=== PATIENT | male | born 2005 | race Caucasian/White ===

== ENCOUNTER 2025-03-11 00:25 | Inpatient (IN) | payer OTHER ==
[~2025-03-11] VITALS: Ht 175.3 cm; Wt 74.0 kg
[2025-03-11] VITALS (73 sets, daily range): BP systolic 68–232; BP diastolic 26–136; PULSE 84–185; RESP 16–45; TEMP 97.2–101.1; O2SAT 87–100
--- NOTE | 2025-03-11 00:35 | ED.PDOC ---
SOB-HPI HPI Comments HPI: Poor Historian. Court received a phone call earlier [place] [place] DR. LUTHER informed me that the patient needs higher level of care. Said it is a 19-year-old male who presented to their facility with low oxygenation and shortness of breath for one day. Initially patient was tachycardic 130 requiring supplemental oxygen 2 L non-rebreather satting 93% with a stable blood pressure. Chest x-ray and CTA angiogram were obtained which shows non cardiogenic pulmonary edema with possible ARDS. At the outside facility patient received albuterol azithromycin cefepime ipratropium lactated ringer a total of 1 L IV, methylprednisolone 125, Zofran 4 mg IV, 500 cc of normal saline, Rocephin 2 g IV patient was placed on a semi make shift BiPAP like device since they do not has a BiPAP machine at their facility. Patient was given ketamine to help him tolerate the BiPAP at the outside facility. He received a total of 90 mg of ketamine in 30 mg boluses until he arrived here in the ED. CTA angiogram shows no PE however possible noncardiogenic pulmonary edema, pneumonia, and/or ARDS Past Medical History: Denies any Past Surgical History: Denies any Tobacco abuse REVIEW OF SYSTEMS: CONSTITUTIONAL: Denies acute: fever, diaphoresis, chills, HEAD: Denies acute: headache, photophobia Eyes: Denies acute: Double vision, vision loss, eye pain, eye discharge. EARS: Denies acute: tinnitus, hearing loss, ear discharge, ear pain, THROAT: Denies acute: sore throat, swelling, difficulty swallowing , pain with swallowing, change in voice. NECK: Denies acute: neck pain, neck swelling, stiff neck. HEART: Denies acute : chest pain, palpitations, LUNGS: Denies acute: wheezing, cough, hemoptysis ABDOMEN: Denies acute: abdominal pain, Nausea, Vomiting, diarrhea, melena , hematemesis, hematochezia SKIN: Denies acute: rash, redness, lesions, itchiness. EXTREMITIES: Denies acute: calf pain, numbness, tingling, weakness, denies pain in extremity. Denies acute: Low back pain. Neuro: Denies acute: focal neurological deficit, motor or sensory focal neurological deficit, tremors, seizure like activity, confusion, dizziness, change in mental status, loss of bowel or bladder function, cauda equina like symptoms. : Denies acute: dysuria, hematuria, flank pain, increase in urinary frequency. PSYCH: Denies acute: hallucination, suicidal ideation, homicidal ideation. PHYSICAL EXAM: General: ---[id number]-----acute distress, awake and alert. Head: normocephalic, atraumatic. Neck: supple, trachea is midline, no swelling. Throat: Normal phonation. Eyes:, no erythema, no purulent discharge, no proptosis, no icterus. Heart: regular tachycardic, no significant murmur appreciated. Lungs: Mild apparent respiratory distress, No wheezing, bilateral rhonchi, no crackles. No stridors Abdomen: non tender to palpation, non distended, soft, no guarding, no rebound, + bowel sounds. Neuro: Awake, Alert, oriented to name, self, situation, follows commands. However he is under the influence of ketamine. GCS=15. Speech is normal. Skin: no petechia, no purpura, no cyanosis, non-pale, not jaundice. Lower extremities: --no - Pitting edema no deformity, no focal swelling, no calf TTP. Makes eye contact. moves all four extremities. ED COURSE: DISCLAIMER: This medical document was created using an electronic medical record system with voice recognition software and computerized dictation system. Although this document has been carefully reviewed, there might still be some phonetic and typographical errors. Occasional wrong-word or "sound-alike" substitutions may have occurred due to the inherent limitations of voice recognition software. These areas are purely typographical due to imperfections of the software programs and do not reflect any compromise in the patient's medical care. Please read the chart carefully and recognize, using context, where these substitutions have occurred. Chief Complaint: Shortness of Breath Time Seen by MD: 00:31 Reviewed notes: Allergies Information Source: Patient, Emergency Med Personnel Mode of Arrival: EMS Past Medical History PAST MEDICAL HISTORY: Denies Surgical History: Denies all surgeries Family History Family History: Reviewed,noncontributory to illness Social History Smoker: Cigarettes Alcohol: Denies ETOH Use Drugs: Denies Drug Use Lives In: Home EKG EKG : Pulse Rate (adult): 122 Cardiac Rhythm: ST Was a procedure done? Was a procedure done?: No Differential Dx Differential Diagnosis: Pneumonia, Respiratory Distress, URI (Pulmonary edema), Other (DDx include ACS, unstable angina, anxiety, PE, pneumothroax, neoplasm, cardiac ischemia, COPD, asthma, CHF, pleural effusion, tobacco abuse, pneumonia, hypoxia, hypercapnia, anemia., infection/sepsis., pulmonary edema. Asthma, Cardiac tamponade, infection.) X-Ray, Labs, Meds, VS Vital Signs Date Time Temp Pulse Resp B/P (MAP) Pulse Ox O2 Delivery O2 Flow Rate FiO2 03/11/25 01:01 35 94 Bi-Pap+ 50 50 03/11/25 01:01 122 03/11/25 00:55 Bi-Pap+ 50 50 03/11/25 00:55 99.8 123 31 160/93 (115) 92 99.8 03/11/25 00:52 122 03/11/25 00:35 128 160/93 Facial BiPAP Mask 50 03/11/25 00:29 101.3 134 20 140/91 92 101.3 Lab Test 03/11/25 00:43 03/11/25 00:42 Range/Units Blood Gas Specimen Type Arterial Blood Gas Sample Site Right radial Blood Gas Patient Temperature 37.0 Arterial Blood Date Drawn [id number] Arterial Blood pH 7.338 L 7.350-7.450 Arterial Blood Partial Pressure CO2 43.1 35.0-48.0 mmHg Arterial Blood Partial Pressure O2 74.1 L 83.0-108.0 mmHg Arterial Blood HCO3 22.6 21.0-28.0 mmol/L Arterial Blood Oxygen Saturation 93.8 L 94.0-98.0 % Arterial Blood Base Excess -3.2 L -2.0-3.0 mmol/L Arterial Blood Oxyhemoglobin 92.8 L 94.0-98.0 % Arterial Blood Carboxyhemoglobin 0.3 L 0.5-1.5 % Arterial Blood Methemoglobin 0.8 0.0-1.5 % Javier Test Modified Blood Gas Total Hemoglobin 19.70 *H 13.5-17.5 g/dL Blood Gas Set Respiration Rate 12.0 Blood Gas Modality Mask - bipap Blood Gas Spontaneous Rate 35 FiO2 % 50.0 Blood Gas Spontaneous Tidal Volume 554 Blood Gas EPAP 5 Blood Gas IPAP 12 Bl Gas Inspiratory/Expiratory Ratio 1:3 Blood Gas Critical Value Read Back Yes Blood Gas Notified Whom wil Segal Blood Gas Notified Time [id number] Blood Gas Notified By Rt, don delarosa White Blood Count 32.4 *H 4.4-10.8 10^3/uL Red Blood Count 6.49 H 4.5-5.90 10^6/uL Hemoglobin 18.2 H 13.5-17.5 g/dL Hematocrit 53.2 H 41.0-53.0 % Mean Corpuscular Volume 82.1 80.0-100.0 fL Mean Corpuscular Hemoglobin 28.0 28.0-32.0 pg Mean Corpuscular Hemoglobin Concent 34.1 32.0-36.0 g/dL Red Cell Distribution Width 13.5 11.8-14.3 % Platelet Count 430 140-450 10^3/uL Mean Platelet Volume 6.9 6.9-10.8 fL Neutrophils (%) (Auto) 37.0-80.0 % Lymphocytes (%) (Auto) 10.0-50.0 % Monocytes (%) (Auto) 0.0-12.0 % Basophils (%) (Auto) 0.0-2.0 % Neutrophils # (Auto) 1.6-8.6 10 ^3/uL Lymphocytes # (Auto) 0.4-5.4 10 ^3/uL Monocytes # (Auto) 0-1.3 10 ^3/uL Differential Total Cells Counted 100.0 100 Neutrophils % (Manual) 81 H 37.0-80.0 Band Neutrophils % (Manual) 4 Lymphocytes % (Manual) 5 L 10.0-50.0 Monocytes % (Manual) 7 0-12 Eosinophils % (Manual) 1 0-7 Basophils % (Manual) 0 0.0-2.0 Metamyelocytes % (manual) 0 Myelocytes % (Manual) 0 Promyelocytes % (Manual) 0 Blast Cells % (Manual) 0 Reactive Lymphocytes 2 Platelet Estimate [place] Large Platelets Few Sodium Level 135 L 136-145 mmol/L Potassium Level 4.1 3.5-5.1 mmol/L Chloride Level 101 98-107 mmol/L Carbon Dioxide Level 25 20-31 mmol/L Anion Gap 9 5-15 Blood Urea Nitrogen 10 9-23 mg/dL Creatinine 0.89 0.700-1.30 mg/dL Glomerular Filtration Rate Calc 125 >90 mL/min BUN/Creatinine Ratio 11.2 10.0-20.0 Serum Glucose 141 H 74-106 mg/dL Hemoglobin A1c 5.0 <5.7 % A1C Lactic Acid Level 1.4 0.4-2.0 mmol/L Calcium Level 8.6 L 8.7-10.4 mg/dL Total Bilirubin 0.9 0.2-1.0 mg/dL Aspartate Amino Transferase (AST) 13 13-40 U/L Alanine Aminotransferase (ALT) < 9 7-40 U/L Alkaline Phosphatase 65 46-116 U/L Troponin I High Sensitivity 63 *H </=54 ng/L B-Type Natriuretic Peptide 51.93 0-100 pg/mL Total Protein 6.3 5.7-8.2 g/dL Albumin 4.0 3.2-4.8 g/dL Current Medications Medications (Trade) Dose Ordered Sig/Perez Route Start Time Stop Time Status Last Admin Dexamethasone Sodium Phosphate (Decadron Injection) 20 mg ONCE ONCE IV 03/11/25 00:45 03/11/25 00:46 DC 03/11/25 00:47 Albuterol (Ventolin Medneb) 20 mg ONCE ONCE NEB 03/11/25 01:00 03/11/25 01:01 DC 03/11/25 01:05 Ipratropium Hanson (Atrovent Medneb) 1 mg ONCE ONCE NEB 03/11/25 01:00 03/11/25 01:01 DC 03/11/25 01:06 [place] [id number] Ph: [phone] DIAGNOSTIC IMAGING Diagnostic Imaging Report : [id number] Signed PATIENT: TUYET FLOR ACCT: [id number] UNIT: [id number] : 2005 LOC: OVERFLOW ROOM / BED: [address] [place] [address] AGE / SEX: 19 / M ADM STATUS: ADM IN SERVICE ORDERING PHYSICIAN: ROLANDO STARKS DO PROCEDURE(s): CXRP - CHEST PORTABLE REASON: sob ORDER NUMBER(s): [id number], ACCESSION NUMBER(s): [id number] CHEST RADIOGRAPH Indication: sob Technique: Single frontal view of the chest was obtained COMPARISON: None FINDINGS: Lines and Tubes: None Lungs: Diffuse patchy bilateral pulmonary airspace disease, most notably within the right upper lung zone and bibasilar regions. Increased prominence of the interstitium and pulmonary vasculature. Pleura: No effusion. No pneumothorax. Cardiomediastinal contours: Unremarkable Bones: Unremarkable IMPRESSION: 1. Diffuse patchy bilateral pulmonary airspace disease, most notably within the right upper lung zone and bibasilar regions. 2. Increased prominence of the interstitium and pulmonary vasculature. ATED BY: JOSE ORR MD DICTATED DATE/TIME: 03/11/25205 SIGNED BY: JOSE ORR MD SIGNED DATE/TIME: 03/11/25205 CC: Time of 1ST Reevaluation: 01:00 Reevaluation 1ST: Unchanged Patient Education/Counseling: Diagnosis, Treatment Family Education/Counseling: No Family Present Comments MDM: patient presented with the above HPI.---dyspnea---workup was initiated. patient was found with the above mentioned diagnosis. Patient was transferred from outside facility. Patient has already received blood cultures antibiotics DuoNeb treatment steroids fluids prior to arrival. The facility over they did not have a BiPAP and that is not have the capacity to order BNP. Per the transfer provider, troponin was normal. Patient was found with elevated troponin here. Patient was placed on a BiPAP immediately upon arrival. CTA angiogram of the chest ruled out PE but shows some nonspecific findings of possible ARDS versus pulmonary edema versus pneumonia. Patient has leukocytosis with possible fever and elevated lactic acid which is more consistent with possible sepsis picture. the following medications were ordered: please refer to order lists of meds and tests obtained by myself Dr. Straks. Patient ED course and VS have been stabilized. Patient has been reassessed in the ED and remained in a stable condition. Escalation of care considered: Consideration of escalation to observation or admission Given the chest x-ray finding and ambiguity of the CTA angiogram report, I gave the patient a Lasix trial given his pulmonary vascular findings. Patient was ADMITTED to the medicine team for further evaluation and treatment of their presentation. All the reports of any imaging studies that were ordered by myself were reviewed by myself. SEPSIS Sepsis Screen Physician Orders Deputy Court Clerk (03/11/25 ) Chest Portable (03/11/25 00:31) Electrocardigram (03/11/25 00:31) BIPAP (03/11/25 00:51) Abg W/ Co-Ox (03/11/25 00:51) Abg W/ Co-Ox (03/11/25 00:56) Vital Signs Date Time Temp Pulse Resp B/P (MAP) Pulse Ox O2 Delivery O2 Flow Rate FiO2 03/11/25 01:01 35 94 Bi-Pap+ 50 50 03/11/25 01:01 122 03/11/25 00:55 Bi-Pap+ 50 50 03/11/25 00:55 99.8 123 31 160/93 (115) 92 99.8 03/11/25 00:52 122 03/11/25 00:35 128 160/93 Facial BiPAP Mask 50 03/11/25 00:29 101.3 134 20 140/91 92 101.3 Laboratory Tests Test 03/11/25 00:42 Lactic Acid Level 1.4 mmol/L (0.4-2.0) White Blood Count 32.4 10^3/uL (4.4-10.8) *H Medications Medications Dose Ordered Sig/Perez Route Start Time Stop Time Status Last Admin Dose Admin Albuterol 20 mg ONCE ONCE NEB 03/11/25 01:00 03/11/25 01:01 DC 03/11/25 01:05 Dexamethasone Sodium Phosphate 20 mg ONCE ONCE IV 03/11/25 00:45 03/11/25 00:46 DC 03/11/25 00:47 Ipratropium Hanson 1 mg ONCE ONCE NEB 03/11/25 01:00 03/11/25 01:01 DC 03/11/25 01:06 Departure 1 Departure Time of Disposition: 01:00 Impression: Primary Impression: Acute respiratory distress Additional Impressions: Sepsis Pulmonary edema ARDS (adult respiratory distress syndrome) Increased lactic acid level Hypercapnia Leukocytosis D-dimer, elevated History of tobacco abuse Elevated troponin Disposition: ADMITTED INPATIENT Admit to: [facility] Condition: Guarded Discharged With: Self Critical Care Note Critical Care Time?: Yes (1 hr-critical care time only) Stability Stability form required: No Heart Score Heart Score: Heart Score Response (Comments) Value History Slightly Suspicious 0 EKG Normal 0 Age <45 0 Risk Factors 1 or 2 risk factors 1 Troponin Normal limit 0 Total 1 I personally scribed for ROLANDO STARKS DO ([email or web address]) on 03/11/25 at 00:35. Electronically submitted by Aj Alfred ([facility]). I personally scribed for ROLANDO STARKS DO ([email or web address]) on 03/11/25 at 01:01. Electronically submitted by Aj Alfred ([email or web address]). I personally scribed for ROLANDO STARKS DO ([email or web address]) on 03/11/25 at 03:42. Elec tronically submitted by Aj Alfred ([facility] ROLANDO STARKS DO Mar 11, 2025 00:35
[2025-03-11 00:56] LABS: Hematocrit 53.2 % (41.0-53.0); Hemoglobin 18.2 g/dL (13.5-17.5); Mean Corpuscular Hemoglobin 28.0 pg (28.0-32.0); Mean Corpuscular Volume 82.1 fL (80.0-100.0)
[2025-03-11 01:05] LABS: Base Excess -3.2 mmol/L (-2.0-3.0)
[2025-03-11] MEDS: ALBUTEROL SULF 2.5 MG/0.5ML(0.5%) NEB SOLN NEB ONE (01:05)
[2025-03-11] MEDS: ALBUTEROL SULF 2.5 MG/0.5ML(0.5%) NEB SOLN ONE (01:06)
[2025-03-11] MEDS: IPRATROPIUM BROM 0.5 MG/2.5ML INH SOL ONE (01:06)
[2025-03-11] MEDS: IPRATROPIUM BROM 0.5 MG/2.5ML INH SOL NEB ONE (01:06)
[2025-03-11 01:10] LABS: Total Cells Counted 100.0 (100)
[2025-03-11] MEDS ORDERED: LABETALOL HCL 20 MG/4 ML VL IV PRN (01:15)
[2025-03-11] MEDS ORDERED: MORPHINE SULFATE INJ 2 MG/ml SYRG IV PRN (01:15)
[2025-03-11] MEDS ORDERED: ONDANSETRON HCL 4 MG/2 ML VIAL IV PRN (01:15)
[2025-03-11] MEDS ORDERED: DOCUSATE SOD 100 MG CAP PO PRN (01:15)
[2025-03-11] MEDS ORDERED: HYDROcodone-ACET 5/325MG TAB PO PRN (01:15)
[2025-03-11] MEDS ORDERED: NITROGLYCERIN 0.4 MG SL TAB SL PRN (01:15)
[2025-03-11 01:16] LABS: Albumin 4.0 g/dL (3.2-4.8); Alkaline Phosphatase 65 U/L (46-116); Anion Gap 9 (5-15); BUN/Creatinine Ratio 11.2 (10.0-20.0); Bilirubin, Total 0.9 mg/dL (0.2-1.0); Blood Urea Nitrogen 10 mg/dL (9-23); Carbon Dioxide 25 mmol/L (20-31); Chloride 101 mmol/L (98-107); Potassium 4.1 mmol/L (3.5-5.1); Total Protein 6.3 g/dL (5.7-8.2)
[2025-03-11 01:18] LABS: Alanine Aminotransferase < 9 U/L (7-40); Calcium 8.6 mg/dL (8.7-10.4); Glucose 141 mg/dL (74-106); Sodium 135 mmol/L (136-145)
--- NOTE | 2025-03-11 01:26 | DVHHP2 ---
History of Present Illness Reason for Visit: Acute respiratory distress History of Present Illness The patient is a 19-year-old male who denies past medical history transferred from [facility] to [facility] ED for evaluation of acute respiratory distress. DR. LUTHER informed ED doctor that th e patient needs higher level of care. Patient was seen and evaluated at the facility and chest x-ray, CTA angiogram were obtained which showed no PE, but possible non cardiogenic pulmonary edema, pneumonia, and/or ARDS. At the facility, patient received breathing treatment albuterol, ipratropium, azithromycin, cefepime, lactated ringer a total of 1 L IV, methylprednisolone 125, Zofran 4 mg IV, 500 cc of normal saline, and Rocephin 2 g IV. Patient was placed on a semi make shift BiPAP like device since they do not has a BiPAP machine at their facility. Patient was given ketamine to help him tolerate the BiPAP at the facility. He received a total of 90 mg of ketamine in 30 mg boluses until he arrived here in the ED. Patient was seen and evaluated in the ED, l aboratory data shows WBC 32.4, hemoglobin 18.2, hematocrit 53.2, platelets 430, sodium 135, potassium 4.1, BUN 10, creatinine 0.89, glucose 141, calcium 8.6, BNP 51.93, troponin 63, blood pressure 160/93, heart rate 134 trending down to 122, temperature 101.3 F trending down to 99.8 F, O2 saturation 92% on oxygen. Please see medication orders section in the computer. On my assessment, patient denied chest pain, no dizziness, headache, diaphoresis, currently on oxygen, no diarrhea, nausea, vomiting, no chills. Patient was admitted for further evaluation and medical management. Past Medical History Denies past medical history Past Surgical History Denies all surgeries Family History Reviewed, noncontributory to the management of this case. Past Social History The patient lives at home, denies smoking, alcohol or illicit drugs abuse. Review of Systems Constitutional: Yes: Weakness; No: Fever, Chills, Sweats, Malaise, Other Eyes: No: Pain, Vision change, Conjunctivae inflammation, Eyelid inflammation, Other, Redness ENT: No: Ear pain, Ear discharge, Nose pain, Nose discharge, Nose congestion, Mouth pain, Mouth swelling, Throat pain, Throat swelling, Other Respiratory: Shortness of breath, SOB with excertion, Other (SOB at rest); No: Cough, Dry, Wheezing, Hemoptysis, Pleuritic Pain, Sputum, Wheezing Cardiovascular: No: Chest Pain, Palpitations, Orthopnea, Paroxysmal Noc. Dyspnea, Edema, Lt Headedness, Other Gastrointestinal: No: Nausea, Vomiting, Abdominal Pain, Diarrhea, Constipation, Melena, Hematochezia, Other Genitourinary: No Dysuria, No Frequency, No Incontinence, No Hematuria, No Retention, No Other Skin: No: Rash, Lesions, Jaundice, Bruising, Other Neurological: No: Weakness, Numbness, Incoordination, Change in speech, Confusion, Seizures, Other Exam Vital Signs Vital Signs Date Time Temp Pulse Resp B/P (MAP) Pulse Ox O2 Delivery O2 Flow Rate FiO2 03/11/25 01:01 122 03/11/25 00:55 Bi-Pap+ 50 50 03/11/25 00:55 99.8 31 160/93 (115) 92 99.8 General Appearance: Alert, Oriented X3, Cooperative, No acute distress HEENT: Atraumatic, PERRLA, EOMI, Mucous membr. moist/pink Respiratory: Normal air movement, Other (On BiPAP) Cardiovascular: Normal S1, Normal S2, No murmurs, Other (Tachycardia) Abdominal: Normal bowel sounds, Soft, No tenderness, No hepatospenomegaly, No masses Extremities: No clubbing, No cyanosis, No edema, Normal pulses, No tenderness/swelling Skin: No rashes, No breakdown, No significant lesion Neuro: Normal speech, Normal tone, Sensation intact, Cranial nerves 3-12 NL, Reflexes 2+, Other (Generalized weakness) Psych/Mental Status: Mental status NL, Mood NL Labs/Xrays Labs Test 03/11/25 01:18 03/11/25 00:43 03/11/25 00:42 Range/Units Blood Gas Specimen Type Arterial Blood Gas Sample Site Right radial Blood Gas Patient Temperature 37.0 Arterial Blood Date Drawn [id number] Arterial Blood pH 7.338 L 7.350-7.450 Arterial Blood Partial Pressure CO2 43.1 35.0-48.0 mmHg Arterial Blood Partial Pressure O2 74.1 L 83.0-108.0 mmHg Arterial Blood HCO3 22.6 21.0-28.0 mmol/L Arterial Blood Oxygen Saturation 93.8 L 94.0-98.0 % Arterial Blood Base Excess -3.2 L -2.0-3.0 mmol/L Arterial Blood Oxyhemoglobin 92.8 L 94.0-98.0 % Arterial Blood Carboxyhemoglobin 0.3 L 0.5-1.5 % Arterial Blood Methemoglobin 0.8 0.0-1.5 % Javier Test Modified Blood Gas Total Hemoglobin 19.70 *H 13.5-17.5 g/dL Blood Gas Set Respiration Rate 12.0 Blood Gas Modality Mask - bipap Blood Gas Spontaneous Rate 35 FiO2 % 50.0 Blood Gas Spontaneous Tidal Volume 554 Blood Gas EPAP 5 Blood Gas IPAP 12 Bl Gas Inspiratory/Expiratory Ratio 1:3 Blood Gas Critical Value Read Back Yes Blood Gas Notified Whom wil Segal Blood Gas Notified Time [id number] Blood Gas Notified By don Cantu White Blood Count 32.4 *H 4.4-10.8 10^3/uL Red Blood Count 6.49 H 4.5-5.90 10^6/uL Hemoglobin 18.2 H 13.5-17.5 g/dL Hematocrit 53.2 H 41.0-53.0 % Mean Corpuscular Volume 82.1 80.0-100.0 fL Mean Corpuscular Hemoglobin 28.0 28.0-32.0 pg Mean Corpuscular Hemoglobin Concent 34.1 32.0-36.0 g/dL Red Cell Distribution Width 13.5 11.8-14.3 % Platelet Count 430 140-450 10^3/uL Mean Platelet Volume 6.9 6.9-10.8 fL Neutrophils (%) (Auto) 37.0-80.0 % Lymphocytes (%) (Auto) 10.0-50.0 % Monocytes (%) (Auto) 0.0-12.0 % Basophils (%) (Auto) 0.0-2.0 % Neutrophils # (Auto) 1.6-8.6 10 ^3/uL Lymphocytes # (Auto) 0.4-5.4 10 ^3/uL Monocytes # (Auto) 0-1.3 10 ^3/uL Differential Total Cells Counted 100.0 100 Neutrophils % (Manual) 81 H 37.0-80.0 Band Neutrophils % (Manual) 4 Lymphocytes % (Manual) 5 L 10.0-50.0 Monocytes % (Manual) 7 0-12 Eosinophils % (Manual) 1 0-7 Basophils % (Manual) 0 0.0-2.0 Metamyelocytes % (manual) 0 Myelocytes % (Manual) 0 Promyelocytes % (Manual) 0 Blast Cells % (Manual) 0 Reactive Lymphocytes 2 Platelet Estimate [place] Large Platelets Few Sodium Level 135 L 136-145 mmol/L Potassium Level 4.1 3.5-5.1 mmol/L Chloride Level 101 98-107 mmol/L Carbon Dioxide Level 25 20-31 mmol/L Anion Gap 9 5-15 Blood Urea Nitrogen 10 9-23 mg/dL Creatinine 0.89 0.700-1.30 mg/dL Glomerular Filtration Rate Calc 125 >90 mL/min BUN/Creatinine Ratio 11.2 10.0-20.0 Serum Glucose 141 H 74-106 mg/dL Lactic Acid Level 1.4 0.4-2.0 mmol/L Calcium Level 8.6 L 8.7-10.4 mg/dL Total Bilirubin 0.9 0.2-1.0 mg/dL Aspartate Amino Transferase (AST) 13 13-40 U/L Alanine Aminotransferase (ALT) < 9 7-40 U/L Alkaline Phosphatase 65 46-116 U/L B-Type Natriuretic Peptide 51.93 0-100 pg/mL Total Protein 6.3 5.7-8.2 g/dL Albumin 4.0 3.2-4.8 g/dL SEPSIS Sepsis Screen Date sepsis recognized/suspect: Mar 11, 2025 Time Sepsis recognized/suspect: 54 Recent Procedure: No On Antibiotic Therapy: No Respiratory Rate >20: Yes Heart Rate >90: Yes Temp<36 C (96.8 F) or >38.3 C: Yes SBP <90 or MAP <65 mmHG: No New Acute Mental Status Change: No Is the patient on CPAP, BIPAP,: Yes Physician Orders Chemist Food (03/11/25 ) Chest Portable (03/11/25 00:31) Electrocardigram (03/11/25 00:31) Troponin-I Hs (03/11/25 01:31) Troponin-I Hs (03/11/25 03:31) BIPAP (03/11/25 00:51) Abg W/ Co-Ox (03/11/25 00:51) Abg W/ Co-Ox (03/11/25 00:56) Comprehensive Metabolic Panel (03/11/25 04:00) Complete Blood Count (03/11/25 04:00) Levalbuterol Hcl (Xopenex Medneb) (03/11/25 06:00) Methylprednisolone Sod Succ (Solu Medrol (03/11/25 06:00) Famotidine Injection (Pepcid Injection) (03/11/25 10:00) Zosyn Extended Infusion (03/11/25 06:00) Azithromycin 500mg/ 250ml (Zithromax 50 (03/12/25 10:00) *Consult (03/11/25 01:14) * Hematology/Oncology Consult (03/11/25 01:14) Clonidine Hcl Tablet (Catapres Tablet) (03/11/25 01:15) Labetalol Hcl (Labetalol Hcl) (03/11/25 01:15) Metoprolol Tartrate Tablet (Lopressor Ta (03/11/25 10:00) Admit (03/11/25 01:14) Allergies (03/11/25 01:14) Code Status (03/11/25 01:14) Sodium Chloride Lock (Saline Lock Ns) (03/11/25 06:00) Oxygen Per Hour (03/11/25 01:14) Hydrocodone-Acet 5/325mg Tab ([place] 5/32 (03/11/25 01:15) Ondansetron Hcl (Zofran) (03/11/25 01:15) Docusate Sodium Capsule (Colace Capsule) (03/11/25 01:15) Enoxaparin Sodium (Lovenox) (03/11/25 10:00) Fall Risk Precautions In Place QSHIFT (03/11/25 01:14) Complete Blood Count (03/12/25 04:00) Comprehensive Metabolic Panel (03/12/25 04:00) Cardiac Diet-2gna,Lofat,Lochol (03/11/25 Breakfast) Condition: Serious (03/11/25 01:14) Acetaminophen Tablet (Tylenol Tablet) (03/11/25 01:15) Maintain Bed Rest (03/11/25 01:14) Sequential Compression Device (03/11/25 ) Nitroglycerin Sublingual (Ntrostat Subli (03/11/25 01:15) Morphine Sulfate Injection (03/11/25 01:15) Stat Ekg For Chest Pain (03/11/25 01:14) Notify Of Changes From Base (03/11/25 01:14) Cabbage Salter For 24 Hours (03/11/25 01:14) Emergency Dysrhythmia Protocol (03/11/25 01:14) Rhythm Strips Once Every Shift (03/11/25 01:14) Oxygen By Nasal Cannula (03/11/25 01:14) Vital Signs Date Time Temp Pulse Resp B/P (MAP) Pulse Ox O2 Delivery O2 Flow Rate FiO2 03/11/25 01:01 122 03/11/25 00:55 Bi-Pap+ 50 50 03/11/25 00:55 99.8 123 31 160/93 (115) 92 99.8 03/11/25 00:52 122 03/11/25 00:29 101.3 134 20 140/91 92 101.3 Laboratory Tests Test 03/11/25 00:42 Lactic Acid Level 1.4 mmol/L (0.4-2.0) White Blood Count 32.4 10^3/uL (4.4-10.8) *H Medications Medications Dose Ordered Sig/Perez Route Start Time Stop Time Status Last Admin Dose Admin Albuterol 20 mg ONCE ONCE NEB 03/11/25 01:00 03/11/25 01:01 DC 03/11/25 01:05 20 MG Dexamethasone Sodium Phosphate 20 mg ONCE ONCE IV 03/11/25 00:45 03/11/25 00:46 DC 03/11/25 00:47 20 MG Ipratropium [place] 1 mg ONCE ONCE NEB 03/11/25 01:00 03/11/25 01:01 DC 03/11/25 01:06 1 MG Assessment/Plan Assessment/Plan Acute respiratory distress Hypercapnia Hyponatremia Polycythemia vera Elevated D-dimer Sepsis, unspecified organism Pulmonary edema ARDS (adult respiratory distress syndrome) Plan 1. Admit to step-down unit 2. Breathing treatment 3. Pain control management 4. IV antibiotic management 5. Management of fluids and electrolytes 6. Consultation for pulmonology 7. Diagnostic test chest x-ray 8. DVT prophylaxis-on Lovenox 9. Repeat labs CBC, CMP in a.m. 10. Continue with current medical management 11. Treatment plan discussed with patient and RN. Patient verbalized stacey wood. Plan discussed with: Patient, Other (RN) My Orders Orders - MONET DAMON DNP Procedure Category Date Status Time Comprehensive LAB 03/11/25 Verified Metabolic Panel 04:00 Complete Blood Count LAB 03/11/25 Verified 04:00 Levalbuterol Hcl PHA 03/11/25 Verified (Xopenex Medneb) 06:00 Methylprednisolone PHA 03/11/25 Verified Sod Succ (Solu Medrol 06:00 Famotidine Injection PHA 03/11/25 Verified (Pepcid Injection) 10:00 Zosyn Extended PHA 03/11/25 Verified Infusion 06:00 Azithromycin 500mg/ PHA 03/12/25 Verified 250ml (Zithromax 50 10:00 *Consult CONS 03/11/25 Verified 01:14 * Hematology/Oncology CONS 03/11/25 Verified Consult 01:14 Clonidine Hcl Tablet PHA 03/11/25 Verified (Catapres Tablet) 01:15 Labetalol Hcl PHA 03/11/25 Verified (Labetalol Hcl) 01:15 Metoprolol Tartrate PHA 03/11/25 Verified Tablet (Lopressor Ta 10:00 Admit ADMIT 03/11/25 Verified 01:14 Allergies MARIANNE 03/11/25 Verified 01:14 Code Status CODE 03/11/25 Verified 01:14 Sodium Chloride Lock PHA 03/11/25 Verified (Saline Lock Ns) 06:00 Oxygen Per Hour RT 03/11/25 Verified 01:14 Hydrocodone-Acet PHA 03/11/25 Verified 5/325mg Tab ([place] 01:15 Ondansetron Hcl PHA 03/11/25 Verified (Zofran) 01:15 Docusate Sodium PHA 03/11/25 Verified Capsule (Colace 01:15 Enoxaparin Sodium PHA 03/11/25 Verified (Lovenox) 10:00 Fall Risk Precautions MARIANNE 03/11/[address] 01:14 Complete Blood Count LAB 03/12/25 Verified 04:00 Comprehensive LAB 03/12/25 Verified Metabolic Panel 04:00 Cardiac DIET 03/11/25 Verified Diet-2gna,Lofat,Lochol Breakfast Condition: Serious MARIANNE 03/11/25 Verified 01:14 Acetaminophen Tablet PHA 03/11/25 Verified (Tylenol Tablet) 01:15 Maintain Bed Rest [facility] 03/11/25 Verified 01:14 Sequential [facility] 03/11/25 Verified Compression Device Nitroglycerin [facility] 03/11/25 Verified Sublingual (Ntrostat 01:15 Morphine Sulfate [facility] 03/11/25 Verified Injection 01:15 Stat Ekg For Chest [facility] 03/11/25 Verified Pain 01:14 Notify Md Of Changes [facility] 03/11/25 Verified From Base 01:14 Cabbage Salter For [facility] 03/11/25 Verified 24 Hours 01:14 Emergency Dysrhythmia [facility] 03/11/25 Verified Protocol 01:14 Rhythm Strips Once [facility] 03/11/25 Verified Every Shift 01:14 Oxygen By Nasal 03/11/25 Verified Cannula 01:14 Problem List: (1) Acute respiratory distress (2) Hypercapnia (3) Hyponatremia (4) Polycythemia vera (5) Elevated d-dimer (6) Sepsis, unspecified organism (7) Pulmonary edema (8) ARDS (adult respiratory distress syndrome) Date of Service: Mar 11, 2025 Billing Provider: MONET DAMON DNP Common Visit Codes: [id number] INP/OBS CARE (HIGH) MONET DAMON DNP Mar 11, 2025 01:26
--- NOTE | 2025-03-11 02:09 | DVH ---
CHEST RADIOGRAPH Indication: sob Technique: Single frontal view of the chest was obtained COMPARISON: None FINDINGS: Lines and Tubes: None Lungs: Diffuse patchy bilateral pulmonary airspace disease, most notably within the right upper lung zone and bibasilar regions. Increased prominence of the interstitium and pulmonary vasculature. Pleura: No effusion. No pneumothorax. Cardiomediastinal contours: Unremarkable Bones: Unremarkable IMPRESSION: 1. Diffuse patchy bilateral pulmonary airspace disease, most notably within the right upper lung zone and bibasilar regions. 2. Increased prominence of the interstitium and pulmonary vasculature.
[2025-03-11 02:32] LABS: Base Excess -3.1 mmol/L (-2.0-3.0)
[2025-03-11] MEDS: SODIUM CHLORIDE 0.9% 1,000 ML IV SCH (02:56)
[2025-03-11 03:44] LABS: Hemoglobin 16.8 g/dL (13.5-17.5)
[2025-03-11 03:48] LABS: Hematocrit 49.6 % (41.0-53.0); Mean Corpuscular Hemoglobin 28.1 pg (28.0-32.0); Mean Corpuscular Volume 82.7 fL (80.0-100.0); Nucleated Red Blood Cells % 0.0 %
[2025-03-11 03:58] LABS: Albumin 3.6 g/dL (3.2-4.8); Alkaline Phosphatase 56 U/L (46-116); Anion Gap 15 (5-15); BUN/Creatinine Ratio 8.3 (10.0-20.0); Blood Urea Nitrogen 10 mg/dL (9-23); Carbon Dioxide 23 mmol/L (20-31); Chloride 99 mmol/L (98-107); Potassium 3.8 mmol/L (3.5-5.1); Sodium 137 mmol/L (136-145); Total Protein 5.8 g/dL (5.7-8.2)
[2025-03-11 03:59] LABS: Alanine Aminotransferase < 9 U/L (7-40); Bilirubin, Total 0.7 mg/dL (0.2-1.0); Calcium 8.3 mg/dL (8.7-10.4); Glucose 186 mg/dL (74-106)
[2025-03-11] MEDS: FUROSEMIDE 40 MG/4 ML VIAL IV ONE (04:25)
[2025-03-11] MEDS: SODIUM CHLOR 0.9% PF (SALINE LOCK) 10ML VIAL/SYR IV SCH (06:14)
[2025-03-11] MEDS: PIPERACILLIN-TAZOB 3.375GM 100 ML IV SCH ×2 (06:14→20:48)
[2025-03-11] MEDS: methylPREDNISolone SOD SUCC 40 MG/ML VL IV SCH (06:17)
[2025-03-11] MEDS: LEVALBUTEROL HCL 1.25 MG/3 ML NEB NEB SCH (06:43)
--- NOTE | 2025-03-11 06:59 | ECG ---
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
[2025-03-11] MEDS: ETOMIDATE (2MG/ML) 20ML VIAL IV ONE ×2 (08:06→08:07)
[2025-03-11] MEDS: MIDAZOLAM DRIP 100 mg/100mL NS 100 ML IV ONE (08:06)
[2025-03-11] MEDS: ROCURONIUM 10MG/ML 10ML VIAL IV ONE ×2 (08:06→08:08)
[2025-03-11] MEDS: MIDAZOLAM DRIP 100 mg/100mL NS 100 ML IV SCH (08:09)
--- NOTE | 2025-03-11 08:14 | DVHNC2 ---
Intubation Indication: Respiratory Insufficiency Prep: Preoxygenation Pretreated with: Sedation Medicated with: Vecuronium Intubation Approach: Orotracheal Intubation size: cm (8) Risks/benefits/alt described: Yes Date of Service: Mar 11, 2025 Billing Provider: RON PAYTON MD Common Visit Codes: [id number] INP/OBS CARE (HIGH) Secondary Visit Codes: [id number] STANDBY SERVICE Consultation Codes: [id number] CONSULT <45MIN Procedure Codes: [id number] RON PAYTON MD Mar 11, 2025 08:14
[2025-03-11] MEDS: PROPOFOL 100 ML IV ONE ×2 (09:15→11:54)
[2025-03-11] MEDS: fentaNYL Drip 2500mCg/250mlNS 250 ML IV ONE (09:20)
[2025-03-11] MEDS: NOREPINEPHRINE 8 MG/250ML KIT 250 ML IV SCH (09:30)
[2025-03-11] MEDS: fentaNYL Drip 2500mCg/250mlNS 250 ML IV SCH (09:30)
--- NOTE | 2025-03-11 09:30 | DVH ---
CHEST RADIOGRAPH Indication: CHECK ETT AND NG PLACEMENT Technique: Single frontal view of the chest was obtained Comparison: XY CHEST PORTABLE on DOS: 03/11/25 FINDINGS: Lines and Tubes: The endotracheal tube terminates 3.7 cm above the galen. The enteric tube courses b elow the left hemidiaphragm and the tip extends outside the field of view. Lungs: Increased bilateral consolidation compared to prior study. Pleura: No effusion. No pneumothorax. Cardiomediastinal contours: Unremarkable Bones: No acute osseous abnormality. IMPRESSION: 1. Endotracheal tube terminates 3.7 cm above the galen. 2. Increased bilateral consolidation compared to prior study.
[2025-03-11 09:32] LABS: Urine Protein, UAD TRACE (Negative)
[2025-03-11] MEDS: NOREPINEPHRINE 8 MG/250ML KIT 250 ML IV ONE (09:39)
[2025-03-11 09:42] LABS: Amphetamine Screen, Urine Neg (NEGATIVE); Barbiturate Scree,Urine Neg (NEGATIVE); Benzodiazephine Screen, Urine Neg (NEGATIVE); Cocaine Screen, Urine Neg (NEGATIVE); Opiate Scree,Urine Neg (NEGATIVE)
[2025-03-11 09:44] LABS: Cannabinoid Screen, Urine Neg (NEGATIVE); Phencyclidine Screen, Urine Neg (NEGATIVE)
[2025-03-11] MEDS ORDERED: FAMOTIDINE (10MG/ML) 2ML VL IV SCH (10:00)
[2025-03-11] MEDS ORDERED: METOPROLOL TARTRATE 25 MG TAB PO SCH (10:00)
[2025-03-11] MEDS ORDERED: VANCOMYCIN PER PHARMACY 0 MG IV SCH (10:15)
[2025-03-11 10:18] LABS: Base Excess -4.5 mmol/L (-2.0-3.0)
[2025-03-11] MEDS: PANTOPRAZOLE 40 MG/10 ML VIAL INJ IV SCH (10:23)
[2025-03-11] MEDS: ENOXAPARIN SOD 40 MG/0.4 ML SYRINGE SC SCH (10:23)
--- NOTE | 2025-03-11 10:26 | DVH ---
CHEST RADIOGRAPH Indication: central line placement Technique: Single frontal view of the chest was obtained COMPARISON: XY CHEST PORTABLE on DOS: 03/11/25, XY CHEST PORTABLE on DOS: 03/11/25 FINDINGS: Lines and Tubes: Endotracheal tube, enteric catheter and right central venous catheter in satisfactor y position. Lungs: Unchanged multifocal airspace disease Pleura: No effusion.No pneumothorax. Cardiomediastinal contours: Unremarkable Bones: Unremarkable IMPRESSION: Right central venous catheter in satisfactory position.
--- NOTE | 2025-03-11 10:48 | DVHNC2 ---
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: Name of customer complaint clerk (Dr Parker) Indication: Hypotension, Volume resuscitation, Suspected infection Room prepared for procedure: Yes Cut Lace Machine Operator performed hand hygien: Yes Maximal sterile barrier precau: Mask/Eye shield, Sterile gown, Cap, Sterlie gloves, Large sterlie drape Skin Preparation: Chlorhexidine gluconate, Alcohol Skin preparation completely dr: Yes Insertion site: Right, Internal jugular Central line catheter type: [id number] dialysis Number of lumens: 3 Central line exchanged over a: No Antiseptic ointment applied to: No Post Assessment: Chest X-Ray, Proper placement, No Pneumothorax Notes Emergent procedure. Medically necessary for administration of vaso-active medications. DESCRIPTION OF PROCEDURE IN DETAIL: The patient was lying in the Trendelenburg position with head turned 30 degrees away from the insertion site. The skin was thoroughly sponged with chlorhexidine and allowed to dry. All persons involved were shielded with hair nets, face masks and sterile gowns. With sterile-gloved hands the right neck area was draped with the large disposable sterile field provided in the pre-manufactured kit. The skin and subcutaneous tissues superficial to the RIGHT internal jugular vein were anesthetized with 2 mL of 1% lidocaine. The RIGHT internal jugular vein was identified on ultrasound from the angle of the mandible down into the supraclavicular fossa using the linear ultrasound probe in the transverse orientation. The carotid artery was identified and avoided utilizing color-flow. The internal jugular vein was then placed in the center of the ultrasound field and compressed for patency. A movement artifact was identified as the needle was advanced through the skin and advanced toward the vessel. A real time hyperechoic signal revealed visualization of vascular needle entry into the lumen as blood was noted to flashback in the syringe. The needle was then held in place while the guide wire was advanced. The needle was then removed. Direct visualization of guide wire location within the vein was noted on ultrasound indicating proper placement and was document in the electronic medical record chart. A skin dilator was advanced over the guidewire and removed, and the triple-lumen catheter was then advanced over the guide wire into proper position. The guide wire was removed and discarded. The ports were aspirated which showed good blood return and then carefully flushed with normal saline. The catheter was stabilized and sutured to the skinat 2 anchor points. A sterile bio-patch and dressing was placed over the catheter, including the insertion site. The patient tolerated the procedure well. A chest x-ray was ordered for position confirmation. Post-procedure chest x-ray No pneumothorax. Date of Service: Mar 11, 2025 Billing Provider: GUNNER CROWLEY MD Common Visit Codes: PROCEDURE ONLY Procedure Codes: [id number] NON-TUNNEL CV CATH, 29080-MU GUIDE VASCULAR ACCESS MALIA PARKER RESIDENT Mar 11, 2025 10:48 GUNNER CROWLEY MD Mar 14, 2025 13:31
[2025-03-11] MEDS: VANCOMYCIN 1GM/250ML KIT 250 ML IV SCH (11:04)
[2025-03-11 11:09] LABS: Lactic Acid w/Reflex 4.2 mmol/L (0.4-2.0)
[2025-03-11] MEDS: IPRATROPIUM BROM 0.5 MG/2.5ML INH SOL NEB SCH (11:34)
[2025-03-11] MEDS: PROPOFOL 100 ML IV SCH (12:00)
[2025-03-11 12:23] LABS: COVID19 ANTIGEN SOFIA FIA NEGATIVE (NEGATIVE)
--- NOTE | 2025-03-11 12:32 | DVH ---
EXAM: XY CHEST PORTABLE HISTORY: CENTRAL LINE PLACEMENT TECHNIQUE: 1 view of the chest COMPARISON: XY CHEST PORTABLE on DOS: 03/11/25 FINDINGS/IMPRESSION: LUNGS: Small bilateral effusions, [id number]-right. Central pulmonary vascular congestion wit h peripheral interstitial edema. MEDIASTINUM: Normal cardiac size BONES: No acute osseous abnormality. OTHER: Enteric tube extending into the central body of the stomach. Right central venous catheter wit h distal tip at the cavoatrial junction.
--- NOTE | 2025-03-11 13:50 | DVHPNRES ---
Progress Note Objective vital signs Vital Sign Date Time Temp Pulse Resp B/P (MAP) Pulse Ox O2 Delivery O2 Flow Rate FiO2 03/11/25 12:00 88 03/11/25 12:00 17 95 Mechanical Ventilator+ 50 50 03/11/25 11:34 124/68 (86) 03/11/25 07:00 100.9 100.9 Total Intake and Output 03/10/25 03/10/25 03/11/25 15:00 23:00 07:00 Intake Total 240 ml Balance 240 ml medications Current Medications Medications Dose Ordered Sig/Perez Route Start Time Stop Time Status Last Admin Dose Admin Levalbuterol HCl 0.625 mg Q6HR NEB 03/11/25 06:00 03/11/25 11:34 0.625 MG Piperacillin Sod/ Tazobactam Sod 100 ml @ 25 mls/hr Q8HR IV 03/11/25 06:00 03/11/25 13:49 25 MLS/HR Azithromycin 250 ml @ 125 mls/hr DAILY IV 03/12/25 10:00 Sodium Chloride 10 ml Q8HR IV 03/11/25 06:00 03/11/25 13:49 10 ML Enoxaparin Sodium 40 mg DAILY SC 03/11/25 10:00 03/11/25 10:23 40 MG Acetaminophen 650 mg Q6HP PRN PO 03/11/25 01:15 Midazolam HCl 100 ml @ 1 mls/hr Q24H IV 03/11/25 08:00 03/11/25 13:42 15 MLS/HR Fentanyl Citrate 250 ml @ 2.5 mls/hr Q24H IV 03/11/25 09:30 03/11/25 13:45 2.5 MLS/HR Norepinephrine Bitartrate 250 ml @ 3.75 mls/hr Q24H IV 03/11/25 09:30 Pantoprazole Sodium 40 mg DAILY IV 03/11/25 10:00 03/11/25 10:23 40 MG Ipratropium [place] 0.5 mg Q6HR NEB 03/11/25 12:00 03/11/25 11:34 0.5 MG Vancomycin HCl 0 ml @ 0 mls/hr PER PHARMACY IV 03/11/25 10:15 Propofol 100 ml @ 2.55 mls/hr Q24H IV 03/11/25 12:00 laboratory and microbiology Laboratory Tests 03/11/25 03:25 Test 03/11/25 03:25 Range/Units Serum Glucose 186 H 74-106 mg/dL My Orders My Orders Orders - MALIA MCKEON RESIDENT Procedure Category Date Status Time Fentanyl Drip PHA 03/11/25 In Process 2500mcg/250mlns 09:30 Us Guided Vascular US 03/11/25 Logged Access 09:23 Norepinephrine 8 PHA 03/11/25 In Process Mg/250ml Kit 09:30 Chest Portable XY 03/11/25 Resulted 09:49 Mrsa Screen BYRON 03/11/25 In Process 09:56 Pantoprazole PHA 03/11/25 In Process (Protonix) 10:00 Ipratropium Medneb PHA 03/11/25 In Process (Atrovent Medneb) 12:00 Vancomycin Per PHA 03/11/25 In Process Pharmacy 10:15 Ventilator Orders RT 03/11/25 Transmitted 10:27 Vancomycin,Random LAB 03/12/25 Verified 04:00 Communication Order ORDERS 03/11/25 Transmitted 11:29 Propofol (Diprivan) PHA 03/11/25 In Process 12:00 Rass Sedation Scale MARIANNE 03/11/25 In Process 11:56 Chest Portable XY 03/11/25 Resulted 11:59 Basic Metabolic Panel LAB 03/11/25 Logged 15:00 Lactic Acid W/ Reflex LAB 03/11/25 Logged Order 15:00 Npo Except For MARIANNE 03/11/25 In Process Medications 12:47 Npo (Nothing By DIET 03/11/25 Transmitted Mouth) Diet Lunch MALIA MCKEON RESIDENT Mar 11, 2025 13:50
[2025-03-11 15:37] LABS: Anion Gap 6 (5-15); Carbon Dioxide 28 mmol/L (20-31); Chloride 105 mmol/L (98-107); Potassium 4.3 mmol/L (3.5-5.1); Sodium 139 mmol/L (136-145)
[2025-03-11 15:43] LABS: BUN/Creatinine Ratio 9.2 (10.0-20.0); Blood Urea Nitrogen 10 mg/dL (9-23)
[2025-03-11 15:45] LABS: Calcium 8.4 mg/dL (8.7-10.4); Glucose 189 mg/dL (74-106)
[2025-03-11 15:46] LABS: Lactic Acid w/Reflex 2.1 mmol/L (0.4-2.0)
--- NOTE | 2025-03-11 18:39 | DVHPNRES ---
Progress Note Date Seen: Mar 11, 2025 Resident Creating Document: MALIA PARKER RESIDENT Medical Necessity Reason Pt with a Central, PICC or Fol: No Subjective Review of Systems Patient is 19 and male with no past medical history transfer to [facility] from [facility] for worsening respiratory distress. For past 5-7 days, patient had worsening shortness of breath, prompted visit in 1 month back hospital. 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 Patient did underwent at [facility] CT angio which showed questionable noncardiogenic pulmonary edema, questionable pneumonia, or ARDS. No PE. Past medical history: None Past surgical history none Allergies none Personal history: As per EMR/nursing report, patient has been smoking 10-12 cigarettes per day, intermittent vaping use. No any other recreational drugs use. Home medication: None 03/11/2025: Patient seen in [facility]. Intubated and sedated. Initially patient was in respiratory distress intubated at 8:00 a.m. on 03/11/2025. Urine output 2500 mL last bowel hours. Elevated temperature. No other complaint. Objective vital signs Vital Sign Date Time Temp Pulse Resp B/P (MAP) Pulse Ox O2 Delivery O2 Flow Rate FiO2 03/11/25 16:15 98.4 100 18 119/63 (81) 96 209.1 03/11/25 16:01 50 03/11/25 16:00 Mechanical Ventilator+ Total Intake and Output 03/10/25 03/10/25 03/11/25 15:00 23:00 07:00 Intake Total 240 ml Balance 240 ml medications Current Medications Medications Dose Ordered Sig/Perez Route Start Time Stop Time Status Last Admin Dose Admin Levalbuterol HCl 0.625 mg Q6HR NEB 03/11/25 06:00 03/11/25 11:34 0.625 MG Azithromycin 250 ml @ 125 mls/hr DAILY IV 03/12/25 10:00 Sodium Chloride 10 ml Q8HR IV 03/11/25 06:00 03/11/25 13:49 10 ML Enoxaparin Sodium 40 mg DAILY SC 03/11/25 10:00 03/11/25 10:23 40 MG Acetaminophen 650 mg Q6HP PRN PO 03/11/25 01:15 Midazolam HCl 100 ml @ 1 mls/hr Q24H IV 03/11/25 08:00 03/11/25 13:42 15 MLS/HR Fentanyl Citrate 250 ml @ 2.5 mls/hr Q24H IV 03/11/25 09:30 03/11/25 13:45 2.5 MLS/HR Norepinephrine Bitartrate 250 ml @ 3.75 mls/hr Q24H IV 03/11/25 09:30 Pantoprazole Sodium 40 mg DAILY IV 03/11/25 10:00 03/11/25 10:23 40 MG Ipratropium [place] 0.5 mg Q6HR NEB 03/11/25 12:00 03/11/25 11:34 0.5 MG Vancomycin HCl 0 ml @ 0 mls/hr PER PHARMACY IV 03/11/25 10:15 Propofol 100 ml @ 2.55 mls/hr Q24H IV 03/11/25 12:00 03/11/25 15:24 25.5 MLS/HR Piperacillin Sod/ Tazobactam Sod 100 ml @ 25 mls/hr Q6H IV 03/11/25 20:00 Examination General Appearance: Sedated and intubated Head Exam: Normal inspection Neck Exam: Normal inspection. Non-tender. Normal alignment Pulmonary/Respiratory: Chest non-tender. Clear bilateral breath sounds, bilateral crackles over diffuse bilateral lung zones Cardiovascular/Chest: Regular rate and rhythm. No murmurs. No JVD. Peripheral Pulses: 2+ Radial (R). 2+ Radial (L). 2+ Pedal (R). 2+ Pedal (L) Abdominal Exam: Normal bowel sounds. Soft. normal abdomen, no visible veins, Nontender. No hepatospenomegaly. No masses Ankle Exam: Negative ankle edema Lower extremities: Negative lower extremity edema Neuro/Mental Status: Sedated. laboratory and microbiology Laboratory Tests 03/11/25 14:49 03/11/25 03:25 Test 03/11/25 14:49 Range/Units Serum Glucose 189 H 74-106 mg/dL Problem List/Assessment/Plan Problem List/Assessment/Plan Neurology Acute metabolic encephalopathy Sedated -Versed, fentanyl. Respiratory Acute hypoxemic respiratory failure Bilateral pneumonia Gram-positive was negative ? EVALI(E-cigarette or Vaping Use-Associated Lung Injury) ARDS Pulmonary edema -IV antibiotic with Zosyn and vancomycin and azithromycin -ipratropium bromide and levalbuterol nebulizer q.6 hour -lezama culture: Respiratory, blood culture. -strict I&O -urine output 2.5 L in the last 12 hours. Cardiology Septic shock due to bilateral pneumonia Sinus tachycardia -continue management of pneumonia -on Levophed -target map greater than 65 -pending pancultures Nephrologic/acid-base balance Metabolic acidosis due to lactic acidosis -improving. -lactic acid 4.2, 2.5, 2.1 -continue current management, keep nasal diuresis. -continue to monitor kidney function Current smoker cigarette smoking Current vape user PUD prophylaxis Protonix DVT prophylaxis Lovenox Intubated on 03/11/2025 Right IJ central line on 03/11/2025 Goals of care discussed with father via phone, full code status. Discussed greater than 24 hours. Critical care time spent greater than 84 minutes, outside the procedure. Plan discussed with Dr Echavarria. See separate procedure note, D/w Dr Parker. Plan discussed with: Spouse (RN), Other My Orders My Orders Orders - MALIA PARKER RESIDENT Procedure Category Date Status Time Fentanyl Drip PHA 03/11/25 In Process 2500mcg/250mlns 09:30 Us Guided Vascular US 03/11/25 Logged Access 09:23 Norepinephrine 8 PHA 03/11/25 In Process Mg/250ml Kit 09:30 Chest Portable XY 03/11/25 Resulted 09:49 Mrsa Screen BYRON 03/11/25 In Process 09:56 Pantoprazole PHA 03/11/25 In Process (Protonix) 10:00 Ipratropium Medneb PHA 03/11/25 In Process (Atrovent Medneb) 12:00 Vancomycin Per PHA 03/11/25 In Process Pharmacy 10:15 Ventilator Orders RT 03/11/25 Transmitted 10:27 Vancomycin,Random LAB 03/12/25 Verified 04:00 Communication Order ORDERS 03/11/25 Transmitted 11:29 Propofol (Diprivan) PHA 03/11/25 In Process 12:00 Rass Sedation Scale MARIANNE 03/11/25 In Process 11:56 Chest Portable XY 03/11/25 Resulted 11:59 Npo Except For MARIANNE 03/11/25 In Process Medications 12:47 Npo (Nothing By DIET 03/11/25 Transmitted Mouth) Diet Lunch Magnesium LAB 03/12/25 Verified 04:00 Chest Xray 1 View XY 03/12/25 Logged 04:00 Abg W/ Co-Ox RT 03/12/25 Logged 04:00 Echo 2d Mode Cardiac US 03/11/25 Logged DOP 17:29 MLAIA PARKER Mar 11, 2025 18:39 GUNNER ECHAVARRIA MD Mar 14, 2025 13:32
--- NOTE | 2025-03-11 22:51 | DVHINCON2 ---
Date of service: Mar 11, 2025 Referring Physician MARIUSZ Montoya Reason for Consultation Acute hypoxic respiratory failure requiring mechanical ventilator History of Present Illness A 19-year-old man with no significant past medical history who was transferred from [facility] to the ED today for evaluation of acute respiratory distress. Dr. Brasher informed ED doctor that the patient needs higher level of care. Patient's workup included chest x-ray, CTA angiogram showing no PE, but possible noncardiogenic pulmonary edema, pneumonia, and/or ARDS. At the prior facility, patient received breathing treatment albuterol/ipratropium, azithromycin, cefepime, lactated ringer a total of 1 L IV, methylprednisolone 125, Zofran 4 mg IV, 500 cc of normal saline, and Rocephin 2 g IV. Patient was placed on a semi-makeshift BiPAP-like device since they did not have a BiPAP machine at their facility. He was given ketamine to help him tolerate the BiPAP at the facility. Pt received a total of 90 mg of ketamine in 30 mg boluses until he arrived here in the ED. Workup in the ED with labs showing WBC 32.4, hemoglobin 18.2, hematocrit 53.2, platelets 430, sodium 135, potassium 4.1, BUN 10, creatinine 0.89, glucose 141, calcium 8.6, BNP 51.93, troponin 63. Initial vitals show blood pressure 160/93, heart rate 134 trending down to 122, temperature 101.3 F trending down to 99.8 F, O2 saturation 92% on oxygen. Patient denied any chest pain, dizziness, nausea, vomiting, or other acute complaints. Patient was admitted for further care. Pulmonary consultation is requested for evaluation and management of acute hypoxic respiratory failure requiring mechanical ventilator. Review of Systems: Unable to obtain d/t intubated status Past Medical History Denies. Past Surgical History Denies. Medications: Reviewed. Allergies: No known drug allergies. Family History: Heart disease. Social History: Nonsmoker. No alcohol or illicit drug use. Family History: Cardiovascular disease G8 MOTHER Allergies: Coded Allergies: No Known Drug Allergy (Verified Allergy, Unknown, 03/11/25) Home Meds No Active Prescriptions or Reported Meds Current Medications Current Medications Medications (Trade) Dose Ordered Sig/Perez Route PRN Reason Start Time Stop Time Status Last Admin Levalbuterol HCl (Xopenex Medneb) 0.625 mg Q6HR NEB 03/11/25 06:00 03/11/25 18:25 Methylprednisolone Sodium Succinate (Solu Medrol) 40 mg Q8HR IV 03/11/25 06:00 03/11/25 10:06 DC 03/11/25 06:17 Famotidine (Pepcid Injection) 20 mg Q12HR IV 03/11/25 10:00 03/11/25 10:00 DC Piperacillin Sod/ Tazobactam Sod 100 ml @ 25 mls/hr Q8HR IV 03/11/25 06:00 03/11/25 14:25 DC 03/11/25 13:49 Azithromycin 250 ml @ 125 mls/hr DAILY IV 03/12/25 10:00 Clonidine HCl (Catapres Tablet) 0.1 mg Q4HP PRN PO SBP>150 03/11/25 01:15 03/11/25 09:57 DC Labetalol HCl (Labetalol HCl) 5 mg Q2HPRN PRN IV SBP>150 03/11/25 01:15 03/11/25 09:57 DC Metoprolol Tartrate (Lopressor Tablet) 25 mg BID PO 03/11/25 10:00 03/11/25 09:57 DC Sodium Chloride (Saline Lock Ns) 10 ml Q8HR IV 03/11/25 06:00 03/11/25 13:49 Acetaminophen/ Hydrocodone Bitart ([place] 5/325MG Tab) 1 tab Q4HP PRN PO MODERATE PAIN (4-6 PAIN SCALE) 03/11/25 01:15 03/11/25 09:57 DC Ondansetron HCl (Zofran) 4 mg Q4HP PRN IV NAUSEA / VOMITING 03/11/25 01:15 03/11/25 09:57 DC Docusate Sodium (Colace Capsule) 100 mg BIDPRN PRN PO FOR CONSTIPATION 03/11/25 01:15 03/11/25 09:57 DC Enoxaparin Sodium (Lovenox) 40 mg DAILY SC 03/11/25 10:00 03/11/25 10:23 Acetaminophen (Tylenol Tablet) 650 mg Q6HP PRN PO PAIN SCALE 1-3 OR TEMP>100.4 03/11/25 01:15 Nitroglycerin (Ntrostat Sublingual) 0.4 mg Q5MINP PRN SL FOR CHEST PAIN 03/11/25 01:15 03/11/25 09:57 DC Morphine Sulfate 2 mg Q30M PRN IV FOR CHEST PAIN 03/11/25 01:15 03/11/25 09:57 DC Sodium Chloride 1,000 ml @ 60 mls/hr Q72Y89H IV 03/11/25 02:15 03/11/25 10:13 DC 03/11/25 02:56 Midazolam HCl 100 ml @ 1 mls/hr Q24H IV 03/11/25 08:00 03/11/25 21:03 Fentanyl Citrate 250 ml @ 2.5 mls/hr Q24H IV 03/11/25 09:30 03/11/25 13:45 Norepinephrine Bitartrate 250 ml @ 3.75 mls/hr Q24H IV 03/11/25 09:30 Pantoprazole Sodium (Protonix) 40 mg DAILY IV 03/11/25 10:00 03/11/25 10:23 Ipratropium [place] (Atrovent Medneb) 0.5 mg Q6HR NEB 03/11/25 12:00 03/11/25 18:25 Vancomycin HCl 0 ml @ 0 mls/hr PER PHARMACY IV 03/11/25 10:15 Vancomycin HCl 250 ml @ 250 mls/hr Q1H IV 03/11/25 11:00 03/11/25 12:59 DC 03/11/25 12:03 Propofol 100 ml @ 2.55 mls/hr Q24H IV 03/11/25 12:00 03/11/25 21:02 Piperacillin Sod/ Tazobactam Sod 100 ml @ 25 mls/hr Q6H IV 03/11/25 20:00 03/11/25 20:48 Vital Signs Vital Signs Date Time Temp Pulse Resp B/P (MAP) Pulse Ox O2 Delivery O2 Flow Rate FiO2 03/11/25 21:55 95 16 110/52 (71) 97 50 03/11/25 18:45 98.2 208.8 03/11/25 18:27 Mechanical Ventilator Physical Exam Gen.: Patient lying in bed in medical ICU. Sedated, intubated on mechanical ventilator. Head: Normocephalic, atraumatic. Eyes: PERRLA. Ears: Normal external anatomy. Throat: Endotracheal tube and orogastric tube in place. Neck: Supple, trachea midline. Chest: Transmitted breath sounds bilaterally. Decreased air entry bilaterally. No wheezing. Bibasilar crackles. Cardiovascular: Positive S1, positive S2. Regular rate and rhythm. Abdomen: Positive bowel sounds in all 4 quadrants. Soft, nontender, nondistended. : Orozco in place. Normal external genitalia. Rectal: Deferred. Skin: Warm, dry. Intact. Extremities: 2+ radial pulses bilaterally. No lower extremity edema. Neuro: Sedated. Labs/Diagnostic Data Labs Test 03/11/25 14:49 03/11/25 11:24 03/11/25 10:10 03/11/25 08:40 Range/Units Sodium Level 139 136-145 mmol/L Potassium Level 4.3 3.5-5.1 mmol/L Chloride Level 105 98-107 mmol/L Carbon Dioxide Level 28 20-31 mmol/L Anion Gap 6 5-15 Blood Urea Nitrogen 10 9-23 mg/dL Creatinine 1.09 0.700-1.30 mg/dL Glomerular Filtration Rate Calc 99 >90 mL/min BUN/Creatinine Ratio 9.2 L 10.0-20.0 Serum Glucose 189 H 74-106 mg/dL Lactic Acid Level 2.1 *H 0.4-2.0 mmol/L Calcium Level 8.4 L 8.7-10.4 mg/dL Influenza Type A Antigen Negative Negative Influenza Type B Antigen Negative Negative SARS-CoV-2 Antigen (Rapid) Negative NEGATIVE Blood Gas Specimen Type Arterial Blood Gas Sample Site Left radial Blood Gas Patient Temperature 37.0 Arterial Blood Date Drawn [id number] Arterial Blood pH 7.333 L 7.350-7.450 Arterial Blood Partial Pressure CO2 40.6 35.0-48.0 mmHg Arterial Blood Partial Pressure O2 88.2 83.0-108.0 mmHg Arterial Blood HCO3 21.1 21.0-28.0 mmol/L Arterial Blood Oxygen Saturation 96.1 94.0-98.0 % Arterial Blood Base Excess -4.5 L -2.0-3.0 mmol/L Arterial Blood Oxyhemoglobin 95.2 94.0-98.0 % Arterial Blood Carboxyhemoglobin 0.3 L 0.5-1.5 % Arterial Blood Methemoglobin 0.6 0.0-1.5 % Javier Test Modified Blood Gas Total Hemoglobin 15.40 13.5-17.5 g/dL Blood Gas Set Respiration Rate 16.0 Blood Gas Modality Vent - ac FiO2 % 100.0 Blood Gas Tidal Volume 500.0 Blood Gas PEEP or CPAP 5.0 Urine Color Light-yellow Yellow Urine Clarity Turbid H Clear Urine pH 5.5 5.0-9.0 Urine Specific [place] 1.021 1.001-1.035 Urine Protein Trace H Negative Urine Ketones Trace Negative Urine Blood Negative Negative /uL Urine Nitrite Negative Negative Urine Bilirubin Negative Negative Urine Urobilinogen Normal Negative mg/dL Urine Leukocyte Esterase Negative Negative /uL Urine RBC 3 0 - 3 /hpf Urine Microscopic WBC 1 0-3 /HPF Urine Squamous Epithelial Cells Few <5 /hpf Urine Bacteria None seen None Seen /hpf Urine Hyaline Casts Few 0 - 2 /lpf Urine Mucus Few None Seen Urine Glucose 1+ H Normal mg/dL Urine Opiates Screen Neg NEGATIVE Urine Fentanyl Screen Neg NEGATIVE Urine Barbiturates Screen Neg NEGATIVE Urine Phencyclidine Screen Neg NEGATIVE Urine Amphetamines Screen Neg NEGATIVE Urine Benzodiazepines Screen Neg NEGATIVE Urine Cocaine Screen Neg NEGATIVE Urine Cannabinoids Screen Neg NEGATIVE Test 03/11/25 03:25 03/11/25 02:24 03/11/25 00:43 03/11/25 00:42 Range/Units White Blood Count 25.5 H 4.4-10.8 10^3/uL Red Blood Count 5.99 H 4.5-5.90 10^6/uL Hemoglobin 16.8 13.5-17.5 g/dL Hematocrit 49.6 41.0-53.0 % Mean Corpuscular Volume 82.7 80.0-100.0 fL Mean Corpuscular Hemoglobin 28.1 28.0-32.0 pg Mean Corpuscular Hemoglobin Concent 33.9 32.0-36.0 g/dL Red Cell Distribution Width 13.4 11.8-14.3 % Platelet Count 346 140-450 10^3/uL Mean Platelet Volume 7.1 6.9-10.8 fL Neutrophils (%) (Auto) 94.7 H 37.0-80.0 % Lymphocytes (%) (Auto) 1.3 L 10.0-50.0 % Monocytes (%) (Auto) 2.3 0.0-12.0 % Eosinophils (%) (Auto) 0.6 0.0-7.0 % Basophils (%) (Auto) 1.1 0.0-2.0 % Neutrophils # (Auto) 24.2 H 1.6-8.6 10 ^3/uL Lymphocytes # (Auto) 0.3 L 0.4-5.4 10 ^3/uL Monocytes # (Auto) 0.6 0-1.3 10 ^3/uL Eosinophils # (Auto) 0.1 0-0.8 10 ^3/uL Basophils # (Auto) 0.3 H 0-0.2 10 ^3/uL Nucleated Red Blood Cells 0.0 % Total Bilirubin 0.7 0.2-1.0 mg/dL Aspartate Amino Transferase (AST) 14 13-40 U/L Alanine Aminotransferase (ALT) < 9 7-40 U/L Alkaline Phosphatase 56 46-116 U/L Troponin I High Sensitivity 36 </=54 ng/L Total Protein 5.8 5.7-8.2 g/dL Albumin 3.6 3.2-4.8 g/dL Blood Gas Spontaneous Rate 43 Blood Gas Spontaneous Tidal Volume 675 Blood Gas EPAP 5 Blood Gas IPAP 12 Blood Gas Critical Value Read Back Yes Blood Gas Notified Whom wil Segal Blood Gas Notified Time [id number] Blood Gas Notified By don Cantu Bl Gas Inspiratory/Expiratory Ratio 1:3 Differential Total Cells Counted 100.0 100 Neutrophils % (Manual) 81 H 37.0-80.0 Band Neutrophils % (Manual) 4 Lymphocytes % (Manual) 5 L 10.0-50.0 Monocytes % (Manual) 7 0-12 Eosinophils % (Manual) 1 0-7 Basophils % (Manual) 0 0.0-2.0 Metamyelocytes % (manual) 0 Myelocytes % (Manual) 0 Promyelocytes % (Manual) 0 Blast Cells % (Manual) 0 Reactive Lymphocytes 2 Platelet Estimate [place] Large Platelets Few Hemoglobin A1c 5.0 <5.7 % A1C B-Type Natriuretic Peptide 51.93 0-100 pg/mL Assessment Impression: Acute hypoxic respiratory failure On mechanical ventilator Pleural effusion Atelectasis, compressive Septic shock Plan: s/p intubation on mechanical ventilator. ABG reviewed, notable for acidemia. On AC mode; RR 16, VT 500, PEEP 8, FiO2 50% (Improved FIO2 requirements from 100%) Titrate FIO2 to keep O2 saturation above 90%. VAP bundle. Daily ABG and CXR while intubated Sedate for ventilator synchrony - on Versed, Fentanyl drip Central line placement for administration of pressors. Pressors for hemodynamic support Levophed 4 mcg/min Titrate to keep mean arterial pressure greater than 65 mmHg. Continue bronchodilators. Continue antibiotics. Follow up cultures. Diurese with Lasix as tolerated Monitor renal function Monitor electrolytes. Supplement as necessary. Monitor ins and outs. Maintain euvolemia. GI prophylaxis. DVT prophylaxis. Prognosis: Poor given patient's multiple co-morbidities. Condition: Critical Rest of plan per hospitalist and other consultants. A total of 35 minutes of critical care time was spent reviewing the patient record, examining the patient, making a diagnostic and therapeutic plan, discussing this plan with the medical personnel, following up on diagnostic studies and following the patient for clinical stability excluding any and all procedures. At least 50% of this time was spent in direct, [id number] contact. Thank you, MARIUSZ Montoya, for allowing me to participate in this patient's care. Further recommendations will depend on the patient's clinical course. Please do not hesitate to contact me if you have any questions or concerns. This medical document was created using an electronic medical record system with [employer] computerized dictation system. Although these documentations are being carefully reviewed, there may still be some phonetic and typographical changes. The errors are purely typographical, due to imperfection on the software program, and do not reflect any compromise in the patient's medical care. Plan discussed with: Other (LIZETTE Barrow/MARIUSZ Montoya/) Visit Coding Pulmonary Billing Provider: GUNNER CROWLEY MD Date of Service if different f: Mar 11, 2025 Common Visit Codes: [id number] CARE 30-74 MIN GUNNER CROWLEY MD Mar 11, 2025 22:51
[2025-03-12] VITALS (110 sets, daily range): BP systolic 93–139; BP diastolic 40–77; PULSE 62–105; RESP 14–17; TEMP 96.6–99.3; O2SAT 89–100
[2025-03-12 04:01] LABS: Hematocrit 39.4 % (41.0-53.0); Hemoglobin 13.3 g/dL (13.5-17.5); Mean Corpuscular Hemoglobin 27.8 pg (28.0-32.0); Mean Corpuscular Volume 82.4 fL (80.0-100.0); Nucleated Red Blood Cells % 0.1 %
[2025-03-12 04:24] LABS: Albumin 3.5 g/dL (3.2-4.8); Alkaline Phosphatase 47 U/L (46-116); Anion Gap 10 (5-15); BUN/Creatinine Ratio 14.3 (10.0-20.0); Blood Urea Nitrogen 14 mg/dL (9-23); Calcium 8.7 mg/dL (8.7-10.4); Carbon Dioxide 29 mmol/L (20-31); Chloride 102 mmol/L (98-107); Magnesium 2.3 mg/dL (1.6-2.6); Potassium 4.1 mmol/L (3.5-5.1); Sodium 141 mmol/L (136-145); Total Protein 5.7 g/dL (5.7-8.2)
[2025-03-12 04:25] LABS: Bilirubin, Total 0.3 mg/dL (0.2-1.0)
--- NOTE | 2025-03-12 04:29 | DVH ---
CHEST RADIOGRAPH Indication: on vent Technique: Single frontal view of the chest was obtained Comparison: XY CHEST PORTABLE on DOS: 03/11/25 FINDINGS: Lines and Tubes: There is an endotracheal tube with its tip terminating 6.4 cm above the galen. The enteric tube courses below the left hemidiaphragm and the tip extends outside the field of view. Ther e is a right central venous catheter with tip terminating in the superior vena cava. Lungs: Diffuse bilateral opacities noted. Findings are similar to prior study. Pleura: Small bilateral pleural effusions, similar to prior study. No pneumothorax. Cardiomediastinal contours: Unremarkable Bones: No acute osseous abnormality. IMPRESSION: 1. Appropriate position of the support lines and tubes. 2. Pulmonary vascular congestion. 3. Small bilateral pleural effusions.
[2025-03-12 04:33] LABS: Alanine Aminotransferase < 9 U/L (7-40); Glucose 150 mg/dL (74-106)
[2025-03-12 07:19] LABS: Base Excess 3.0 mmol/L (-2.0-3.0)
[2025-03-12] MEDS: FUROSEMIDE 20 MG/2 ML VIAL IV SCH (09:47)
[2025-03-12] MEDS: AZITHROMYCIN 500MG/ 250ML 250 ML IV SCH (09:48)
--- NOTE | 2025-03-12 12:42 | DVHSR ---
APPROVED REPORT EXAM: Two-dimensional and M-mode echocardiogram with Doppler and color Doppler. Blood Pressure: 108/49 mmHg INDICATION Pulm Edema RISK FACTORS Height: 5'9", Weight: 187 DIMENSIONS LVDd4.2 (3.8-5.7cm)LA (2D)3.5 (1.9-4.0cm)Aortic Root2.9 (2.0-3.7cm) LVDs3.1 (2.5-4.0cm)LA (MM) (1.9-4.0cm)Aortic Cusp Exc2.0 (1.5-2.0cm) EF (%) 50.0 (55-70%)Rt. Atrium3.6 (1.9-4.0cm)Asc. Aorta cm IVSd0.7 (0.7-1.1cm)RV (D) (1.8-2.4cm) Mitral Valve MitralMitral Stenosis E/A ratio0.02D MVAcm2 Aortic Valve Aortic ValveAortic Stenosis LVOT Diameter2.2 (1.8-2.4cm)Doppler AVAcm2 Other Information Quality : Technically LimitedRhythm : Technically limited study due to on vent. Conclusion lvef 50% possible LVH noted cannot rule out WMA rv enlarged normal atria no severe valve abnormality noted
[2025-03-12] MEDS: VANCOMYCIN 1.5GM/250ML 250 ML IV SCH (13:00)
--- NOTE | 2025-03-12 16:22 | DVHPNRES ---
Progress Note Date Seen: Mar 12, 2025 Resident Creating Document: MALIA MCKEON RESIDENT Medical Necessity Reason Pt with a Central, PICC or Fol: No Subjective Review of Systems Patient is 19 and male with no past medical history transfer to [facility] from [facility] for worsening respiratory distress. For past 5-7 days, patient had worsening shortness of breath, prompted visit in 1 month back hospital. 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 Patient did underwent at [facility] CT angio which showed questionable noncardiogenic pulmonary edema, questionable pneumonia, or ARDS. No PE. Past medical history: None Past surgical history none Allergies none Personal history: As per EMR/nursing report, patient has been smoking 10-12 cigarettes per day, intermittent vaping use. No any other recreational drugs use. Home medication: None 03/11/2025: Patient seen in [facility] Intubated and sedated. Initially patient was in respiratory distress intubated at 8:00 a.m. on 03/11/2025. Urine output 2500 mL last bowel hours. Elevated temperature. No other complaint. 03/12/2025: Patient seen in [facility]. On ventilator. FIow 35%. Off Vasopressors. tem98. no new complains Objective vital signs Vital Sign Date Time Temp Pulse Resp B/P (MAP) Pulse Ox O2 Delivery O2 Flow Rate FiO2 03/12/25 15:32 87 16 111/65 (80) 97 35 03/12/25 13:45 98.4 209.1 03/12/25 13:43 Mechanical Ventilator+ Total Intake and Output 03/11/25 03/11/25 03/12/25 15:00 23:00 07:00 Intake Total 952.05 ml 603.10 ml 672.40 ml Output Total 1750 ml 900 ml Balance 952.05 ml -1146.90 ml -227.60 ml medications Current Medications Medications Dose Ordered Sig/Perez Route Start Time Stop Time Status Last Admin Dose Admin Levalbuterol HCl 0.625 mg Q6HR NEB 03/11/25 06:00 03/12/25 11:22 0.625 MG Azithromycin 250 ml @ 125 mls/hr DAILY IV 03/12/25 10:00 03/12/25 09:48 125 MLS/HR Sodium Chloride 10 ml Q8HR IV 03/11/25 06:00 03/12/25 13:38 10 ML Enoxaparin Sodium 40 mg DAILY SC 03/11/25 10:00 03/12/25 09:47 40 MG Acetaminophen 650 mg Q6HP PRN PO 03/11/25 01:15 Midazolam HCl 100 ml @ 1 mls/hr Q24H IV 03/11/25 08:00 03/12/25 08:50 9 MLS/HR Fentanyl Citrate 250 ml @ 2.5 mls/hr Q24H IV 03/11/25 09:30 03/11/25 13:45 2.5 MLS/HR Norepinephrine Bitartrate 250 ml @ 3.75 mls/hr Q24H IV 03/11/25 09:30 Pantoprazole Sodium 40 mg DAILY IV 03/11/25 10:00 03/12/25 09:47 40 MG Ipratropium [place] 0.5 mg Q6HR NEB 03/11/25 12:00 03/12/25 11:22 0.5 MG Vancomycin HCl 0 ml @ 0 mls/hr PER PHARMACY IV 03/11/25 10:15 Propofol 100 ml @ 2.55 mls/hr Q24H IV 03/11/25 12:00 03/12/25 11:40 17.85 MLS/HR Piperacillin Sod/ Tazobactam Sod 100 ml @ 25 mls/hr Q6H IV 03/11/25 20:00 03/12/25 13:38 25 MLS/HR Furosemide 20 mg DAILY IV 03/12/25 10:00 03/12/25 09:47 20 MG Vancomycin HCl 250 ml @ 166.667 mls/hr Q12H IV 03/12/25 13:00 03/12/25 13:00 166.667 MLS/HR Enteral Nutritional Formula 1,000 ml 30ML/HR GT 03/12/25 15:30 Examination General Appearance: Sedated and intubated Head Exam: Normal inspection Neck Exam: Normal inspection. Non-tender. Normal alignment Pulmonary/Respiratory: Chest non-tender. Clear bilateral breath sounds, bilateral crackles over diffuse bilateral lung zones Cardiovascular/Chest: Regular rate and rhythm. No murmurs. No JVD. Peripheral Pulses: 2+ Radial (R). 2+ Radial (L). 2+ Pedal (R). 2+ Pedal (L) Abdominal Exam: Normal bowel sounds. Soft. normal abdomen, no visible veins, Nontender. No hepatospenomegaly. No masses Ankle Exam: Negative ankle edema Lower extremities: Negative lower extremity edema Neuro/Mental Status: Sedated. laboratory and microbiology Laboratory Tests 03/12/25 03:00 Test 03/12/25 03:00 Range/Units Serum Glucose 150 H 74-106 mg/dL Microbiology Date/Time Source Procedure Growth Status 03/11/25 08:40 Nose MRSA Screen - Final Complete 03/11/25 08:40 Urine - [place] Urine Culture - Preliminary Resulted 03/11/25 07:00 Sputum Gram Stain - Final Resulted 03/11/25 07:00 Sputum Respiratory Culture - Preliminary Resulted 03/11/25 02:41 Blood Blood Culture - Preliminary NO GROWTH AFTER 24 HOURS OF INCUBATION. Resulted Problem List/Assessment/Plan Problem List/Assessment/Plan Neurology Acute metabolic encephalopathy Sedated -Versed, fentanyl. Respiratory Acute hypoxemic respiratory failure Bilateral pneumonia Gram-positive was negative ? EVALI(E-cigarette or Vaping Use-Associated Lung Injury) ARDS Non cardiogenic Pulmonary edema -IV antibiotic with Zosyn and vancomycin and azithromycin -ipratropium bromide and levalbuterol nebulizer q.6 hour -lezama culture: Respiratory, blood culture. -strict I&O -urine output 2.5 L in the last 12 hours. Cardiology Septic shock due to bilateral pneumonia Sinus tachycardia -continue management of pneumonia -on Levophed -target map greater than 65 -pending pancultures Nephrologic/acid-base balance Metabolic acidosis due to lactic acidosis -improving. -lactic acid 4.2, 2.5, 2.1 -continue current management, keep nasal diuresis. -continue to monitor kidney function Current smoker cigarette smoking Current vape user PUD prophylaxis Protonix DVT prophylaxis Lovenox Intubated on 03/11/2025 Right IJ central line on 03/11/2025 Goals of care discussed with father via phone, full code status on 03/11/2025. Discussed greater than 24 hours. Critical care time spent greater than 82 minutes, outside the procedure. Plan discussed with Dr Norohna. Plan discussed with: Other (RN) My Orders My Orders Orders - MALIA MCKEON Procedure Category Date Status Time Abg W/ Co-Ox RT 03/12/25 Logged 04:00 Furosemide Injection PHA 03/12/25 In Process (Lasix Injection) 10:00 Echo 2d Mode Cardiac US 03/12/25 Resulted DOP 17:29 Vancomycin PHA 03/12/25 In Process 1.5gm/250ml 13:00 Vancomycin Per MARIANNE 03/12/25 In Process Pharmacy Protoc 13:00 Creatinine LAB 03/13/25 Verified 04:00 Vancomycin,Trough LAB 03/14/25 Verified 00:00 Nutritional PHA 03/12/25 In Process Supplements (Jevity 15:30 Complete Blood Count LAB 03/13/25 Verified 04:00 Basic Metabolic Panel LAB 03/13/25 Verified 04:00 Magnesium LAB 03/13/25 Verified 04:00 Chest Xray 1 View XY 03/13/25 Logged 04:00 Abg W/ Co-Ox RT 03/13/25 Logged 04:00 Date of Service: Mar 12, 2025 Billing Provider: BRENT ONTIVEROS MD Common Visit Codes: [id number] CARE 30-74 MIN, [id number] CARE-EACH +30MIN MALIA MCKEON Mar 12, 2025 16:22 BRENT ONTIVEROS MD Mar 13, 2025 15:13
--- NOTE | 2025-03-12 21:14 | DVH ---
CHEST RADIOGRAPH Indication: ET Tube Placement Confirmation Technique: 1 view Comparison: XY CHEST XRAY 1 VIEW on DOS: 03/12/25, XY CHEST PORTABLE on DOS: 03/11/25, XY CHEST RODRICK BLE on DOS: 03/11/25, XY CHEST PORTABLE on DOS: 03/11/25, XY CHEST PORTABLE on DOS: 03/11/25 FINDINGS: Lines and Tubes: Endotracheal tube is difficult to visualize with overlying enteric tube, appearing t o terminate a proximally 2.2 cm above the galen. Enteric tube and right IJ catheter unchanged. Lungs/Pleura: Unchanged, although the left costophrenic angle is not within [id number]. Cardiomediastinum: Unchanged. Other: Unchanged osseous structures. IMPRESSION: No significant change from the previous day. Support devices appear stable and adequately positioned . Persistent diffuse interstitial opacities with superimposed [id number]-left basilar airspac e disease and small pleural effusions.
[2025-03-12] MEDS: Jevity 1.2 Cal/Fiber 1 Liter GT SCH (21:59)
[2025-03-13] VITALS (114 sets, daily range): BP systolic 98–145; BP diastolic 38–87; PULSE 62–97; RESP 15–24; TEMP 99.3–100.8; O2SAT 91–100
--- NOTE | 2025-03-13 03:37 | DVH ---
CHEST RADIOGRAPH Indication: on vent Technique: 1 view Comparison: XY CHEST XRAY 1 VIEW on DOS: 03/12/25, XY CHEST XRAY 1 VIEW on DOS: 03/12/25, XY CHEST PO RTABLE on DOS: 03/11/25, XY CHEST PORTABLE on DOS: 03/11/25, XY CHEST PORTABLE on DOS: 03/11/25 FINDINGS: Lines and Tubes: Unchanged. Lungs/Pleura: Unchanged. Cardiomediastinum: Unchanged. Other: Unchanged. IMPRESSION: No significant change from the previous study. Stable support devices. Persistent bilateral mixed pu lmonary opacities and small pleural effusions.
[2025-03-13 03:49] LABS: Hematocrit 35.3 % (41.0-53.0); Hemoglobin 11.7 g/dL (13.5-17.5); Mean Corpuscular Hemoglobin 27.3 pg (28.0-32.0); Mean Corpuscular Volume 82.3 fL (80.0-100.0); Nucleated Red Blood Cells % 0.0 %
[2025-03-13 03:50] LABS: Chloride 103 mmol/L (98-107); Potassium 4.0 mmol/L (3.5-5.1); Sodium 144 mmol/L (136-145)
[2025-03-13 03:51] LABS: Anion Gap 6 (5-15)
[2025-03-13 03:57] LABS: BUN/Creatinine Ratio 20.2 (10.0-20.0); Blood Urea Nitrogen 17 mg/dL (9-23); Magnesium 2.0 mg/dL (1.6-2.6)
[2025-03-13 03:58] LABS: Calcium 7.9 mg/dL (8.7-10.4); Carbon Dioxide 35 mmol/L (20-31); Glucose 122 mg/dL (74-106)
[2025-03-13 07:58] LABS: Base Excess 6.2 mmol/L (-2.0-3.0)
--- NOTE | 2025-03-13 07:59 | DVH ---
CHEST RADIOGRAPH Indication: ET Tube Placement Confirmation. Technique: Single frontal view of the chest was obtained. Comparison: XY CHEST XRAY 1 VIEW on DOS: 03/13/25 FINDINGS: Lines and Tubes: The endotracheal tube terminates 3.3 cm above the galen. The enteric tube courses b elow the left hemidiaphragm and the tip extends outside the field of view. There is a right central v enous catheter with its tip terminating in the superior vena cava. Lungs: Patchy bilateral airspace disease. Pleura: Small bilateral pleural effusions. No pneumothorax. Cardiomediastinal contours: Stable Cardiovascular silhouette. Bones: No acute osseous abnormality. IMPRESSION: 1. Support tubes in appropriate position. 2. Patchy bilateral airspace disease. 3. Small bilateral pleural effusions.
[2025-03-13] MEDS: ACETAMINOPHEN 325 MG TAB PO PRN (17:22)
[2025-03-14] VITALS (108 sets, daily range): BP systolic 103–136; BP diastolic 43–85; PULSE 70–99; RESP 16–21; TEMP 97.3–100.6; O2SAT 91–100
[2025-03-14 04:21] LABS: Hematocrit 38.9 % (41.0-53.0); Hemoglobin 13.0 g/dL (13.5-17.5); Mean Corpuscular Hemoglobin 27.8 pg (28.0-32.0); Mean Corpuscular Volume 83.0 fL (80.0-100.0); Nucleated Red Blood Cells % 0.0 %
[2025-03-14 04:33] LABS: Chloride 102 mmol/L (98-107); Potassium 3.6 mmol/L (3.5-5.1); Sodium 145 mmol/L (136-145)
[2025-03-14 04:34] LABS: Anion Gap 9 (5-15)
[2025-03-14 04:35] LABS: Calcium 8.6 mg/dL (8.7-10.4); Carbon Dioxide 34 mmol/L (20-31)
--- NOTE | 2025-03-14 04:35 | DVH ---
CHEST RADIOGRAPH Indication: on vent Technique: Single frontal view of the chest was obtained Comparison: XY CHEST XRAY 1 VIEW on DOS: 03/13/25 FINDINGS: Lines and Tubes: The endotracheal tube terminates 3.5 cm above the galen. There is right central ve nous catheter with the tip terminating in the superior vena cava. The enteric tube courses below the left hemidiaphragm and the tip extends outside the field of view. Lungs: Hazy bilateral opacities are noted, which are unchanged. Pleura: There are bilateral pleural effusions which are similar to the prior study. No pneumothorax. Cardiomediastinal contours: Stable. Bones: No acute osseous abnormality. IMPRESSION: 1. Support tubes in appropriate position. 2. Bilateral pleural effusions and hazy bilateral pulmonary opacities are similar to the prior study.
[2025-03-14 04:39] LABS: BUN/Creatinine Ratio 15.1 (10.0-20.0); Blood Urea Nitrogen 21 mg/dL (9-23); Glucose 97 mg/dL (74-106); Magnesium 2.4 mg/dL (1.6-2.6)
[2025-03-14 08:31] LABS: Base Excess 6.8 mmol/L (-2.0-3.0)
--- NOTE | 2025-03-14 09:01 | DVHPNRES ---
Progress Note Date Seen: Mar 13, 2025 Resident Creating Document: MALIA MCKEON RESIDENT Medical Necessity Reason Pt with a Central, PICC or Fol: No Subjective Review of Systems Patient is 19 and male with no past medical history transfer to [facility] from [facility] for worsening respiratory distress. For past 5-7 days, patient had worsening shortness of breath, prompted visit in 1 month back hospital. 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 Patient did underwent at [facility] CT angio which showed questionable noncardiogenic pulmonary edema, questionable pneumonia, or ARDS. No PE. Past medical history: None Past surgical history none Allergies none Personal history: As per EMR/nursing report, patient has been smoking 10-12 cigarettes per day, intermittent vaping use. No any other recreational drugs use. Home medication: None 03/11/2025: Patient seen in [facility] Intubated and sedated. Initially patient was in respiratory distress intubated at 8:00 a.m. on 03/11/2025. Urine output 2500 mL last bowel hours. Elevated temperature. No other complaint. 03/12/2025: Patient seen in [facility]. On ventilator. FIow 35%. Off Vasopressors. tem98. no new complains 03/13/2025:Patient seen in [facility]. On ventilator. FIow 35%. Off Vasopressors. [id number]. no new complains Objective vital signs Vital Sign Date Time Temp Pulse Resp B/P (MAP) Pulse Ox O2 Delivery O2 Flow Rate FiO2 03/14/25 08:15 100.0 03/14/25 07:00 92 16 116/64 (81) 97 03/14/25 06:25 35 03/14/25 06:00 Mechanical Ventilator+ Total Intake and Output 03/13/25 03/13/25 03/14/25 15:00 23:00 07:00 Intake Total 1073.934 ml 844.10 ml 1068.650 ml Output Total 1800 ml 1200 ml Balance 1073.934 ml -955.90 ml -131.350 ml medications Current Medications Medications Dose Ordered Sig/Perez Route Start Time Stop Time Status Last Admin Dose Admin Levalbuterol HCl 0.625 mg Q6HR NEB 03/11/25 06:00 03/14/25 06:25 0.625 MG Azithromycin 250 ml @ 125 mls/hr DAILY IV 03/12/25 10:00 03/13/25 09:36 125 MLS/HR Sodium Chloride 10 ml Q8HR IV 03/11/25 06:00 03/14/25 05:13 10 ML Enoxaparin Sodium 40 mg DAILY SC 03/11/25 10:00 03/13/25 09:36 40 MG Acetaminophen 650 mg Q6HP PRN PO 03/11/25 01:15 03/14/25 05:12 650 MG Midazolam HCl 100 ml @ 1 mls/hr Q24H IV 03/11/25 08:00 03/14/25 02:42 9 MLS/HR Fentanyl Citrate 250 ml @ 2.5 mls/hr Q24H IV 03/11/25 09:30 03/14/25 01:51 10 MLS/HR Norepinephrine Bitartrate 250 ml @ 3.75 mls/hr Q24H IV 03/11/25 09:30 Pantoprazole Sodium 40 mg DAILY IV 03/11/25 10:00 03/13/25 09:35 40 MG Ipratropium [place] 0.5 mg Q6HR NEB 03/11/25 12:00 03/14/25 06:25 0.5 MG Vancomycin HCl 0 ml @ 0 mls/hr PER PHARMACY IV 03/11/25 10:15 Propofol 100 ml @ 2.55 mls/hr Q24H IV 03/11/25 12:00 03/14/25 07:31 22.95 MLS/HR Piperacillin Sod/ Tazobactam Sod 100 ml @ 25 mls/hr Q6H IV 03/11/25 20:00 03/14/25 08:19 25 MLS/HR Furosemide 20 mg DAILY IV 03/12/25 10:00 03/13/25 09:35 20 MG Enteral Nutritional Formula 1,000 ml 30ML/HR GT 03/12/25 15:30 03/12/25 21:59 1,000 ML Methylprednisolone Sodium Succinate 40 mg BID IV 03/14/25 10:00 Examination General Appearance: Sedated and intubated Head Exam: Normal inspection Neck Exam: Normal inspection. Non-tender. Normal alignment Pulmonary/Respiratory: Chest non-tender. Clear bilateral breath sounds, bilateral crackles over diffuse bilateral lung zones Cardiovascular/Chest: Regular rate and rhythm. No murmurs. No JVD. Peripheral Pulses: 2+ Radial (R). 2+ Radial (L). 2+ Pedal (R). 2+ Pedal (L) Abdominal Exam: Normal bowel sounds. Soft. normal abdomen, no visible veins, Nontender. No hepatospenomegaly. No masses Ankle Exam: Negative ankle edema Lower extremities: Negative lower extremity edema Neuro/Mental Status: Sedated. laboratory and microbiology Laboratory Tests 03/14/25 04:00 Test 03/14/25 04:00 Range/Units Serum Glucose 97 74-106 mg/dL Microbiology Date/Time Source Procedure Growth Status 03/11/25 08:40 Nose MRSA Screen - Final Complete 03/11/25 08:40 Urine - [place] Urine Culture - Final Complete 03/11/25 07:00 Sputum Gram Stain - Final Resulted 03/11/25 07:00 Sputum Respiratory Culture - Preliminary Resulted 03/11/25 02:41 Blood Blood Culture - Preliminary NO GROWTH AFTER 72 HOURS OF INCUBATION. Resulted Problem List/Assessment/Plan Problem List/Assessment/Plan Neurology Acute metabolic encephalopathy Sedated -Versed, fentanyl. Respiratory Acute hypoxemic respiratory failure Bilateral pneumonia Gram-positive was negative ? EVALI(E-cigarette or Vaping Use-Associated Lung Injury) ARDS Non cardiogenic Pulmonary edema -IV antibiotic with Zosyn and vancomycin and azithromycin -Iv lasix 20 mg daily -ipratropium bromide and levalbuterol nebulizer q.6 hour -lezama culture: Respiratory, blood culture. -strict I&O Cardiology Septic shock due to bilateral pneumonia Sinus tachycardia -continue management of pneumonia -on Levophed -target map greater than 65 -pending pancultures Nephrologic/acid-base balance Metabolic acidosis due to lactic acidosis -improving. -lactic acid 4.2, 2.5, 2.1,1.2 -continue current management, keep nasal diuresis. -continue to monitor kidney function Current smoker cigarette smoking Current vape user PUD prophylaxis Protonix DVT prophylaxis Lovenox Intubated on 03/11/2025 Right IJ central line on 03/11/2025 Goals of care discussed with father via phone, full code status on 03/11/2025. Discussed greater than 24 hours. Critical care time spent greater than 82 minutes, outside the procedure. Plan discussed with Dr Linares. Plan discussed with: Other (RN) My Orders My Orders Orders - MALIA MCKEON RESIDENT Procedure Category Date Status Time Chest Xray 1 View XY 03/14/25 Resulted 04:00 Abg W/ Co-Ox RT 03/14/25 Logged 04:00 Chest Ultrasound US 03/14/25 Taken 08:20 Urine Sodium LAB 03/14/25 Logged 08:24 Urine Creatinine LAB 03/14/25 Logged 08:24 Urine LAB 03/14/25 Logged Protein/Creatinine Urinalysis LAB 03/14/25 Logged 08:24 Methylprednisolone PHA 03/14/25 In Process Sod Succ (Solu Medrol 10:00 Vancomycin,Random LAB 03/15/25 Verified 04:00 Creatinine LAB 03/15/25 Verified 04:00 Dietary Evaluation Review Comments: 1) Consider changing TF regimen from Jevity 1.2 @ 30 mL/hr to Vital AF 1.2 @ 60 mL/hr goal rate as tolerated. TF regimen will provide 1728 kcals, 108g Pro, and 1168 mL free H2O per 24 hrs. Goal rate will meet ~ 98% estimated energy needs and ~ 86% estimated protein needs 2) Advance to regular diet when medically feasible, pending ST approval 3) Follow-up with cardiology and pulmonology 4) Continue to monitor I&O, labs, and skin integrity Expected Outcomes/Goals: 1) TF regimen to meet at least 75% estimated daily needs 2) labs to improve 3) diet to advance 4) f/u in 2-3 days Date of Service: Mar 13, 2025 Billing Provider: BRENT ONTIVEROS MD Common Visit Codes: [id number] CARE 30-74 MIN, [id number] CARE-EACH +30MIN MALIA MCKEON Mar 14, 2025 09:01 BRENT ONTIVEROS MD Mar 14, 2025 13:37
--- NOTE | 2025-03-14 09:20 | DVH ---
US CHEST ULTRASOUND, HISTORY: pleural effusion COMPARISON(S): XY CHEST XRAY 1 VIEW on DOS: 03/14/25, XY CHEST XRAY 1 VIEW on DOS: 03/13/25, XY CHEST XRAY 1 VIEW on DOS: 03/13/25 TECHNICAL DATA: Transverse and longitudinal images are obtained of the chest. FINDING: IMPRESSION(S): Small bilateral pleural effusions.
[2025-03-14] MEDS: methylPREDNISolone SOD SUCC 40 MG/ML VL IV SCH ×2 (10:12→14:40)
--- NOTE | 2025-03-14 15:41 | DVHPNRES ---
Progress Note Date Seen: Mar 14, 2025 Resident Creating Document: MALIA MCKEON RESIDENT Medical Necessity Reason Pt with a Central, PICC or Fol: No Subjective Review of Systems Patient is 19 and male with no past medical history transfer to [facility] from [facility] for worsening respiratory distress. For past 5-7 days, patient had worsening shortness of breath, prompted visit in 1 month back hospital. Is when patient was transferred to emergency department in [facility], the patient was started on BiPAP, head holder on 03/11/2025, the patient started breathing 30s to 40s, for respiratory distress, patient was intubated brought in for supportive mechanical ventilation. Patient did underwent at [facility] CT angio which showed questionable noncardiogenic pulmonary edema, questionable pneumonia, or ARDS. No PE. Past medical history: None Past surgical history none Allergies none Personal history: As per EMR/nursing report, patient has been smoking 10-12 cigarettes per day, intermittent vaping use. No any other recreational drugs use. Home medication: None 03/11/2025: Patient seen in [facility] Intubated and sedated. Initially patient was in respiratory distress intubated at 8:00 a.m. on 03/11/2025. Urine output 2500 mL last bowel hours. Elevated temperature. No other complaint. 03/12/2025: Patient seen in [facility]. On ventilator. FIow 35%. Off Vasopressors. [id number]. no new complains 03/13/2025:Patient seen in [facility]. On ventilator. FIow 35%. Off Vasopressors. [id number]. no new complains 03/14/2025:Patient seen in [facility]. On ventilator. FIow 35%. Off Vasopressors. [id number]. no new complains. Started on steroids. DC lasix. Monitor kidney function. Objective vital signs Vital Sign Date Time Temp Pulse Resp B/P (MAP) Pulse Ox O2 Delivery O2 Flow Rate FiO2 03/14/25 14:00 35 03/14/25 14:00 16 97 Mechanical Ventilator+ 03/14/25 14:00 76 03/14/25 13:39 113/65 03/14/25 11:45 100.4 212.7 Total Intake and Output 03/13/25 03/13/25 03/14/25 15:00 23:00 07:00 Intake Total 1073.934 ml 844.10 ml 1110.600 ml Output Total 1800 ml 1200 ml Balance 1073.934 ml -955.90 ml -89.400 ml medications Current Medications Medications Dose Ordered Sig/Perez Route Start Time Stop Time Status Last Admin Dose Admin Levalbuterol HCl 0.625 mg Q6HR NEB 03/11/25 06:00 03/14/25 12:06 0.625 MG Azithromycin 250 ml @ 125 mls/hr DAILY IV 03/12/25 10:00 03/14/25 10:13 125 MLS/HR Sodium Chloride 10 ml Q8HR IV 03/11/25 06:00 03/14/25 12:21 10 ML Enoxaparin Sodium 40 mg DAILY SC 03/11/25 10:00 03/14/25 10:13 40 MG Acetaminophen 650 mg Q6HP PRN PO 03/11/25 01:15 03/14/25 05:12 650 MG Midazolam HCl 100 ml @ 1 mls/hr Q24H IV 03/11/25 08:00 03/14/25 13:39 9 MLS/HR Fentanyl Citrate 250 ml @ 2.5 mls/hr Q24H IV 03/11/25 09:30 03/14/25 01:51 10 MLS/HR Norepinephrine Bitartrate 250 ml @ 3.75 mls/hr Q24H IV 03/11/25 09:30 Pantoprazole Sodium 40 mg DAILY IV 03/11/25 10:00 03/14/25 10:12 40 MG Ipratropium [place] 0.5 mg Q6HR NEB 03/11/25 12:00 03/14/25 12:05 0.5 MG Vancomycin HCl 0 ml @ 0 mls/hr PER PHARMACY IV 03/11/25 10:15 Propofol 100 ml @ 2.55 mls/hr Q24H IV 03/11/25 12:00 03/14/25 12:23 22.95 MLS/HR Piperacillin Sod/ Tazobactam Sod 100 ml @ 25 mls/hr Q6H IV 03/11/25 20:00 03/14/25 14:40 25 MLS/HR Enteral Nutritional Formula 1,000 ml 30ML/HR GT 03/12/25 15:30 03/12/25 21:59 1,000 ML Methylprednisolone Sodium Succinate 40 mg Q8HR IV 03/14/25 14:00 03/14/25 14:40 40 MG Examination General Appearance: Sedated and intubated Head Exam: Normal inspection Neck Exam: Normal inspection. Non-tender. Normal alignment Pulmonary/Respiratory: Chest non-tender. Clear bilateral breath sounds, bilateral crackles over diffuse bilateral lung zones Cardiovascular/Chest: Regular rate and rhythm. No murmurs. No JVD. Peripheral Pulses: 2+ Radial (R). 2+ Radial (L). 2+ Pedal (R). 2+ Pedal (L) Abdominal Exam: Normal bowel sounds. Soft. normal abdomen, no visible veins, Nontender. No hepatospenomegaly. No masses Ankle Exam: Negative ankle edema Lower extremities: Negative lower extremity edema Neuro/Mental Status: Sedated. laboratory and microbiology Laboratory Tests 03/14/25 04:00 Test 03/14/25 04:00 Range/Units Serum Glucose 97 74-106 mg/dL Microbiology Date/Time Source Procedure Growth Status 03/11/25 08:40 Nose MRSA Screen - Final Complete 03/11/25 08:40 Urine - [place] Urine Culture - Final Complete 03/11/25 07:00 Sputum Gram Stain - Final Complete 03/11/25 07:00 Sputum Respiratory Culture - Final Complete 03/11/25 02:41 Blood Blood Culture - Preliminary NO GROWTH AFTER 72 HOURS OF INCUBATION. Resulted Problem List/Assessment/Plan Problem List/Assessment/Plan Neurology Acute metabolic encephalopathy Sedated -Versed, fentanyl. Respiratory Acute hypoxemic respiratory failure Bilateral pneumonia Gram-positive was negative ? EVALI(E-cigarette or Vaping Use-Associated Lung Injury) ARDS Non cardiogenic Pulmonary edema -IV methyprednisone 40 mg Q8HR -IV antibiotic with Zosyn and vancomycin and azithromycin -DC Iv lasix 20 mg daily due to worsening kidney function -ipratropium bromide and levalbuterol nebulizer q.6 hour -lezama culture: Respiratory, blood culture.:negative till now -Mrsa negative -strict I&O Cardiology Septic shock due to bilateral pneumonia Sinus tachycardia -continue management of pneumonia -Off pressors target map greater than 65 -lezama culture: Respiratory, blood culture.:negative till now Nephrologic/acid-base balance RAJENDRA due to VMN -Cretinine:0.84, 1.39 -GFR 127, 74. -Strict I&O -DC lasix -Avoid nephrotoxic medications -Continue monitor kidney functions. Metabolic acidosis due to lactic acidosis -improving. -lactic acid 4.2, 2.5, 2.1,1.2 -continue current management, keep nasal diuresis. -continue to monitor kidney function Current smoker cigarette smoking Current vape user PUD prophylaxis Protonix DVT prophylaxis Lovenox Intubated on 03/11/2025 Right IJ central line on 03/11/2025 Goals of care discussed with father via phone, full code status on 03/11/2025. Discussed greater than 24 hours. Critical care time spent greater than 81 minutes, outside the procedure. Called father over phone and informed all clinical findings and critical conditions of patient. Plan discussed with Dr Linares. Plan discussed with: Other (father) My Orders My Orders Orders - MALIA MCKEON RESIDENT Procedure Category Date Status Time Chest Xray 1 View XY 03/14/25 Resulted 04:00 Abg W/ Co-Ox RT 03/14/25 Logged 04:00 Chest Ultrasound US 03/14/25 Resulted 08:20 Urine Sodium LAB 03/14/25 Logged 08:24 Urine Creatinine LAB 03/14/25 Logged 08:24 Urine LAB 03/14/25 Logged Protein/Creatinine Urinalysis LAB 03/14/25 Logged 08:24 Vancomycin,Random LAB 03/15/25 Verified 04:00 Creatinine LAB 03/15/25 Verified 04:00 Dietary Evaluation Review Comments: 1) Consider changing TF regimen from Jevity 1.2 @ 30 mL/hr to Vital AF 1.2 @ 60 mL/hr goal rate as tolerated. TF regimen will provide 1728 kcals, 108g Pro, and 1168 mL free H2O per 24 hrs. Goal rate will meet ~ 98% estimated energy needs and ~ 86% estimated protein needs 2) Advance to regular diet when medically feasible, pending ST approval 3) Follow-up with cardiology and pulmonology 4) Continue to monitor I&O, labs, and skin integrity Expected Outcomes/Goals: 1) TF regimen to meet at least 75% estimated daily needs 2) labs to improve 3) diet to advance 4) f/u in 2-3 days Date of Service: Mar 14, 2025 Billing Provider: BRENT ONTIVEROS MD Common Visit Codes: [id number] CARE 30-74 MIN, [id number] CARE-EACH +30MIN MALIA MCKEON Mar 14, 2025 15:41 BRENT ONTIVEROS MD Mar 15, 2025 12:19
[2025-03-15] VITALS (107 sets, daily range): BP systolic 92–134; BP diastolic 35–87; PULSE 61–103; RESP 15–34; TEMP 97.3–99.5; O2SAT 89–99
[2025-03-15 00:19] LABS: Protein, Urine 43.7 mg/dL (1-14)
[2025-03-15 00:24] LABS: Urine Protein, UAD TRACE (Negative)
[2025-03-15 03:35] LABS: Hematocrit 35.5 % (41.0-53.0); Hemoglobin 11.9 g/dL (13.5-17.5); Mean Corpuscular Hemoglobin 27.7 pg (28.0-32.0); Mean Corpuscular Volume 82.4 fL (80.0-100.0); Nucleated Red Blood Cells % 0.0 %
[2025-03-15 03:40] LABS: Chloride 101 mmol/L (98-107); Potassium 4.5 mmol/L (3.5-5.1)
[2025-03-15 03:41] LABS: Anion Gap 10 (5-15)
[2025-03-15 03:47] LABS: BUN/Creatinine Ratio 18.5 (10.0-20.0)
[2025-03-15 03:55] LABS: Blood Urea Nitrogen 37 mg/dL (9-23); Calcium 8.2 mg/dL (8.7-10.4); Carbon Dioxide 34 mmol/L (20-31); Glucose 159 mg/dL (74-106); Magnesium 2.9 mg/dL (1.6-2.6); Sodium 145 mmol/L (136-145)
--- NOTE | 2025-03-15 05:00 | DVH ---
CHEST RADIOGRAPH Indication: on vent Technique: 1 view Comparison: XY CHEST XRAY 1 VIEW on DOS: 03/14/25, XY CHEST XRAY 1 VIEW on DOS: 03/13/25, XY CHEST XR AY 1 VIEW on DOS: 03/13/25, XY CHEST XRAY 1 VIEW on DOS: 03/12/25, XY CHEST XRAY 1 VIEW on DOS: 03/12 FINDINGS: Lines and Tubes: Unchanged. Lungs/Pleura: Unchanged. Cardiomediastinum: Unchanged. Other: Unchanged osseous structures. IMPRESSION: No significant change from the previous day. Stable support devices. Similar dense bilateral mixed pu lmonary opacities and small pleural effusions.
[2025-03-15 07:21] LABS: Base Excess 6.9 mmol/L (-2.0-3.0)
[2025-03-15] MEDS: SODIUM CHLORIDE 0.9% 1,000 ML IV SCH (12:54)
[2025-03-15] MEDS: LACTULOSE 20Gm/30ML SOLN PO ONE (15:39)
[2025-03-16] VITALS (108 sets, daily range): BP systolic 119–159; BP diastolic 58–103; PULSE 46–108; RESP 15–19; TEMP 97.7–99.7; O2SAT 94–100
[2025-03-16 03:54] LABS: Hemoglobin 11.4 g/dL (13.5-17.5); Mean Corpuscular Volume 83.4 fL (80.0-100.0)
[2025-03-16 03:55] LABS: Hematocrit 34.0 % (41.0-53.0); Mean Corpuscular Hemoglobin 27.9 pg (28.0-32.0)
[2025-03-16 04:07] LABS: Potassium 5.0 mmol/L (3.5-5.1)
[2025-03-16 04:08] LABS: Anion Gap 8 (5-15); Carbon Dioxide 31 mmol/L (20-31); Chloride 108 mmol/L (98-107); Sodium 147 mmol/L (136-145)
[2025-03-16 04:09] LABS: Calcium 8.6 mg/dL (8.7-10.4)
[2025-03-16 04:13] LABS: BUN/Creatinine Ratio 23.0 (10.0-20.0)
[2025-03-16 04:21] LABS: Blood Urea Nitrogen 35 mg/dL (9-23); Glucose 145 mg/dL (74-106)
[2025-03-16 05:09] LABS: Total Cells Counted 100.0 (100)
--- NOTE | 2025-03-16 05:11 | DVH ---
CHEST RADIOGRAPH Indication: on vent Technique: Single frontal view of the chest was obtained COMPARISON: XY CHEST XRAY 1 VIEW on DOS: 03/15/25, XY CHEST XRAY 1 VIEW on DOS: 03/14/25, XY CHEST XR AY 1 VIEW on DOS: 03/13/25, XY CHEST XRAY 1 VIEW on DOS: 03/13/25, XY CHEST XRAY 1 VIEW on DOS: 03/12 FINDINGS: Lines and Tubes: Slight interval retraction of the endotracheal tube such that the tip projects appro ximately 6.0 cm above the level of the galen. Remaining lines and tubes unchanged. Lungs: Interval decrease in diffuse pulmonary vascular congestion with mild persistent bilateral pleu ral effusions and bibasilar pulmonary airspace disease. No pneumothorax. Cardiomediastinal contours: Cardiomegaly. Bones: Unremarkable IMPRESSION: 1. Interval decrease in diffuse pulmonary vascular congestion. 2. Persistent bilateral pleural effusions and bibasilar pulmonary airspace disease. 3. Cardiomegaly. 4. Interval retraction of endotracheal tube as above. Remaining lines and tubes unchanged.
[2025-03-16] MEDS: LACTULOSE 20Gm/30ML SOLN PO SCH (07:28)
[2025-03-16 08:54] LABS: Base Excess 4.3 mmol/L (-2.0-3.0)
--- NOTE | 2025-03-16 11:04 | DVHPNRES ---
Progress Note Date Seen: Mar 15, 2025 Resident Creating Document: MALIA MCKEON RESIDENT Medical Necessity Reason Pt with a Central, PICC or Fol: No Subjective Review of Systems Patient is 19 and male with no past medical history transfer to [facility] from [facility] for worsening respiratory distress. For past 5-7 days, patient had worsening shortness of breath, prompted visit in 1 month back hospital. 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 Patient did underwent at [facility] CT angio which showed questionable noncardiogenic pulmonary edema, questionable pneumonia, or ARDS. No PE. Past medical history: None Past surgical history none Allergies none Personal history: As per EMR/nursing report, patient has been smoking 10-12 cigarettes per day, intermittent vaping use. No any other recreational drugs use. Home medication: None 03/11/2025: Patient seen in [facility] Intubated and sedated. Initially patient was in respiratory distress intubated at 8:00 a.m. on 03/11/2025. Urine output 2500 mL last bowel hours. Elevated temperature. No other complaint. 03/12/2025: Patient seen in [facility]. On ventilator. FIow 35%. Off Vasopressors. [id number]. no new complains 03/13/2025:Patient seen in [facility]. On ventilator. FIow 35%. Off Vasopressors. [id number]. no new complains 03/14/2025:Patient seen in [facility]. On ventilator. FIow 35%. Off Vasopressors. [id number]. no new complains. Started on steroids. DC lasix. Monitor kidney function. 03/15/2025: Patient seen in [facility]. On ventilator. Charla 35%. Tmax 99.5. On steroids. NO other complains. Objective vital signs Vital Sign Date Time Temp Pulse Resp B/P (MAP) Pulse Ox O2 Delivery O2 Flow Rate FiO2 03/15/25 07:00 98.8 94 17 114/52 (72) 93 209.8 03/15/25 06:00 35 03/15/25 06:00 Mechanical Ventilator+ Total Intake and Output 03/14/25 03/14/25 03/15/25 15:00 23:00 07:00 Intake Total 585.60 ml 946.60 ml 790.60 ml Output Total 1400 ml 850 ml Balance 585.60 ml -453.40 ml -59.40 ml medications Current Medications Medications Dose Ordered Sig/Perez Route Start Time Stop Time Status Last Admin Dose Admin Levalbuterol HCl 0.625 mg Q6HR NEB 03/11/25 06:00 03/15/25 05:54 0.625 MG Azithromycin 250 ml @ 125 mls/hr DAILY IV 03/12/25 10:00 03/15/25 09:06 125 MLS/HR Sodium Chloride 10 ml Q8HR IV 03/11/25 06:00 03/15/25 05:34 10 ML Enoxaparin Sodium 40 mg DAILY SC 03/11/25 10:00 03/15/25 09:06 40 MG Acetaminophen 650 mg Q6HP PRN PO 03/11/25 01:15 03/14/25 05:12 650 MG Midazolam HCl 100 ml @ 1 mls/hr Q24H IV 03/11/25 08:00 03/15/25 09:02 9 MLS/HR Fentanyl Citrate 250 ml @ 2.5 mls/hr Q24H IV 03/11/25 09:30 03/14/25 23:35 10 MLS/HR Norepinephrine Bitartrate 250 ml @ 3.75 mls/hr Q24H IV 03/11/25 09:30 Pantoprazole Sodium 40 mg DAILY IV 03/11/25 10:00 03/15/25 09:06 40 MG Ipratropium [place] 0.5 mg Q6HR NEB 03/11/25 12:00 03/15/25 05:53 0.5 MG Vancomycin HCl 0 ml @ 0 mls/hr PER PHARMACY IV 03/11/25 10:15 Propofol 100 ml @ 2.55 mls/hr Q24H IV 03/11/25 12:00 03/15/25 09:02 22.95 MLS/HR Piperacillin Sod/ Tazobactam Sod 100 ml @ 25 mls/hr Q6H IV 03/11/25 20:00 03/15/25 09:06 25 MLS/HR Enteral Nutritional Formula 1,000 ml 30ML/HR GT 03/12/25 15:30 03/14/25 20:15 1,000 ML Methylprednisolone Sodium Succinate 40 mg Q8HR IV 03/14/25 14:00 03/15/25 05:33 40 MG Examination General Appearance: Sedated and intubated Head Exam: Normal inspection Neck Exam: Normal inspection. Non-tender. Normal alignment Pulmonary/Respiratory: Chest non-tender. Clear bilateral breath sounds, bilateral crackles over diffuse bilateral lung zones Cardiovascular/Chest: Regular rate and rhythm. No murmurs. No JVD. Peripheral Pulses: 2+ Radial (R). 2+ Radial (L). 2+ Pedal (R). 2+ Pedal (L) Abdominal Exam: Normal bowel sounds. Soft. normal abdomen, no visible veins, Nontender. No hepatospenomegaly. No masses Ankle Exam: Negative ankle edema Lower extremities: Negative lower extremity edema Neuro/Mental Status: Sedated. laboratory and microbiology Laboratory Tests 03/15/25 03:00 Test 03/15/25 03:00 Range/Units Serum Glucose 159 H 74-106 mg/dL Microbiology Date/Time Source Procedure Growth Status 03/11/25 08:40 Nose MRSA Screen - Final Complete 03/11/25 08:40 Urine - [place] Urine Culture - Final Complete 03/11/25 07:00 Sputum Gram Stain - Final Complete 03/11/25 07:00 Sputum Respiratory Culture - Final Complete 03/11/25 02:41 Blood Blood Culture - Preliminary NO GROWTH AFTER 72 HOURS OF INCUBATION. Resulted Problem List/Assessment/Plan Problem List/Assessment/Plan Neurology Acute metabolic encephalopathy Sedated -Versed, fentanyl. Respiratory Acute hypoxemic respiratory failure Bilateral pneumonia Gram-positive was negative ? EVALI(E-cigarette or Vaping Use-Associated Lung Injury) ARDS Non cardiogenic Pulmonary edema -IV methyprednisone 40 mg Q8HR -IV antibiotic with Zosyn and vancomycin and azithromycin -DC Iv lasix 20 mg daily due to worsening kidney function -ipratropium bromide and levalbuterol nebulizer q.6 hour -lezama culture: Respiratory, blood culture.:negative till now -Mrsa negative -strict I&O Cardiology Septic shock due to bilateral pneumonia Sinus tachycardia NSTEMI type 2 due to septic shock -continue management of pneumonia -Off pressors target map greater than 65 -lezama culture: Respiratory, blood culture.:negative till now -ECHO:lvef 50%,possible LVH noted,cannot rule out WMA,rv enlarged,normal atria,no severe valve abnormality noted Nephrologic/acid-base balance RAJENDRA due to VMN -Cretinine:0.84, 1.39, 2.00 -GFR 127, 74. -Strict I&O -DC lasix -Avoid nephrotoxic medications -Continue monitor kidney functions. Metabolic acidosis due to lactic acidosis -improving. -lactic acid 4.2, 2.5, 2.1,1.2 -continue current management, keep nasal diuresis. -continue to monitor kidney function Current smoker cigarette smoking Current vape user PUD prophylaxis Protonix DVT prophylaxis Lovenox Intubated on 03/11/2025 Right IJ central line on 03/11/2025 Feeding: Jevity Goals of care discussed with father via phone, full code status on 03/11/2025. Discussed greater than 24 hours. Critical care time spent greater than 81 minutes, outside the procedure. Plan discussed with Dr Linares. Plan discussed with: Other (RN and patient's Supervision from [facility]) My Orders My Orders Orders - MALIA MCKEON Procedure Category Date Status Time Chest Xray 1 View XY 03/15/25 Resulted 04:00 Abg W/ Co-Ox RT 03/15/25 Logged 04:00 Dietary Evaluation Review Comments: 1) Consider changing TF regimen from Jevity 1.2 @ 30 mL/hr to Vital AF 1.2 @ 60 mL/hr goal rate as tolerated. TF regimen will provide 1728 kcals, 108g Pro, and 1168 mL free H2O per 24 hrs. Goal rate will meet ~ 98% estimated energy needs and ~ 86% estimated protein needs 2) Advance to regular diet when medically feasible, pending ST approval 3) Follow-up with cardiology and pulmonology 4) Continue to monitor I&O, labs, and skin integrity Expected Outcomes/Goals: 1) TF regimen to meet at least 75% estimated daily needs 2) labs to improve 3) diet to advance 4) f/u in 2-3 days Date of Service: Mar 15, 2025 Billing Provider: BRENT ONTIVEROS MD Common Visit Codes: [id number] CARE 30-74 MIN, [id number] CARE-EACH +30MIN MALIA MCKEON RESIDENT Mar 15, 2025 09:25 BRENT ONTIVEROS MD Mar 17, 2025 11:31
--- NOTE | 2025-03-16 11:20 | DVHPNRES ---
Progress Note Date Seen: Mar 15, 2025 Resident Creating Document: MALIA MCKEON RESIDENT Medical Necessity Reason Pt with a Central, PICC or Fol: No Subjective Review of Systems Patient is 19 and male with no past medical history transfer to [facility] from [facility] for worsening respiratory distress. For past 5-7 days, patient had worsening shortness of breath, prompted visit in 1 month back hospital. 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 Patient did underwent at [facility] CT angio which showed questionable noncardiogenic pulmonary edema, questionable pneumonia, or ARDS. No PE. Past medical history: None Past surgical history none Allergies none Personal history: As per EMR/nursing report, patient has been smoking 10-12 cigarettes per day, intermittent vaping use. No any other recreational drugs use. Home medication: None 03/11/2025: Patient seen in [facility] Intubated and sedated. Initially patient was in respiratory distress intubated at 8:00 a.m. on 03/11/2025. Urine output 2500 mL last bowel hours. Elevated temperature. No other complaint. 03/12/2025: Patient seen in [facility]. On ventilator. FIow 35%. Off Vasopressors. [id number]. no new complains 03/13/2025:Patient seen in [facility]. On ventilator. FIow 35%. Off Vasopressors. [id number]. no new complains 03/14/2025:Patient seen in [facility]. On ventilator. FIow 35%. Off Vasopressors. [id number]. no new complains. Started on steroids. DC lasix. Monitor kidney function. 03/15/2025:Patient seen in [facility]. On ventilator. FIow 35%. Off Vasopressors. tem99.5. no new complains. on steroids. DC lasix. Start IV fluids. Monitor worsening kidney function. Objective vital signs Vital Sign Date Time Temp Pulse Resp B/P (MAP) Pulse Ox O2 Delivery O2 Flow Rate FiO2 03/15/25 16:11 80 16 126/65 (85) 94 35 03/15/25 16:00 Mechanical Ventilator+ 03/15/25 15:00 98.2 208.8 03/15/25 10:00 35 Total Intake and Output 03/14/25 03/14/25 03/15/25 15:00 23:00 07:00 Intake Total 585.60 ml 946.60 ml 790.60 ml Output Total 1400 ml 850 ml Balance 585.60 ml -453.40 ml -59.40 ml medications Current Medications Medications Dose Ordered Sig/Perez Route Start Time Stop Time Status Last Admin Dose Admin Levalbuterol HCl 0.625 mg Q6HR NEB 03/11/25 06:00 03/15/25 12:28 0.625 MG Azithromycin 250 ml @ 125 mls/hr DAILY IV 03/12/25 10:00 03/15/25 09:06 125 MLS/HR Sodium Chloride 10 ml Q8HR IV 03/11/25 06:00 03/15/25 12:54 10 ML Enoxaparin Sodium 40 mg DAILY SC 03/11/25 10:00 03/15/25 09:06 40 MG Acetaminophen 650 mg Q6HP PRN PO 03/11/25 01:15 03/14/25 05:12 650 MG Midazolam HCl 100 ml @ 1 mls/hr Q24H IV 03/11/25 08:00 03/15/25 09:02 9 MLS/HR Fentanyl Citrate 250 ml @ 2.5 mls/hr Q24H IV 03/11/25 09:30 03/14/25 23:35 10 MLS/HR Norepinephrine Bitartrate 250 ml @ 3.75 mls/hr Q24H IV 03/11/25 09:30 Pantoprazole Sodium 40 mg DAILY IV 03/11/25 10:00 03/15/25 09:06 40 MG Ipratropium [place] 0.5 mg Q6HR NEB 03/11/25 12:00 03/15/25 12:28 0.5 MG Propofol 100 ml @ 2.55 mls/hr Q24H IV 03/11/25 12:00 03/15/25 13:46 22.95 MLS/HR Piperacillin Sod/ Tazobactam Sod 100 ml @ 25 mls/hr Q6H IV 03/11/25 20:00 03/15/25 15:38 25 MLS/HR Enteral Nutritional Formula 1,000 ml 30ML/HR GT 03/12/25 15:30 03/14/25 20:15 1,000 ML Methylprednisolone Sodium Succinate 40 mg Q8HR IV 03/14/25 14:00 03/15/25 15:39 40 MG Sodium Chloride 1,000 ml @ 75 mls/hr [id number] IV 03/15/25 12:30 03/15/25 12:54 75 MLS/HR Lactulose 30 ml DAILY PO 03/16/25 10:00 Examination General Appearance: Sedated and intubated Head Exam: Normal inspection Neck Exam: Normal inspection. Non-tender. Normal alignment Pulmonary/Respiratory: Chest non-tender. Clear bilateral breath sounds, bilateral crackles over diffuse bilateral lung zones Cardiovascular/Chest: Regular rate and rhythm. No murmurs. No JVD. Peripheral Pulses: 2+ Radial (R). 2+ Radial (L). 2+ Pedal (R). 2+ Pedal (L) Abdominal Exam: Normal bowel sounds. Soft. normal abdomen, no visible veins, Nontender. No hepatospenomegaly. No masses Ankle Exam: Negative ankle edema Lower extremities: Negative lower extremity edema Neuro/Mental Status: Sedated laboratory and microbiology Laboratory Tests 03/15/25 03:00 Test 03/15/25 03:00 Range/Units Serum Glucose 159 H 74-106 mg/dL Microbiology Date/Time Source Procedure Growth Status 03/11/25 08:40 Nose MRSA Screen - Final Complete 03/11/25 08:40 Urine - [place] Urine Culture - Final Complete 03/11/25 07:00 Sputum Gram Stain - Final Complete 03/11/25 07:00 Sputum Respiratory Culture - Final Complete 03/11/25 02:41 Blood Blood Culture - Preliminary NO GROWTH AFTER 72 HOURS OF INCUBATION. Resulted Problem List/Assessment/Plan Problem List/Assessment/Plan Neurology Acute metabolic encephalopathy Sedated -Versed, fentanyl. Respiratory Acute hypoxemic respiratory failure Bilateral pneumonia Gram-positive was negative ? EVALI(E-cigarette or Vaping Use-Associated Lung Injury) ARDS Non cardiogenic Pulmonary edema -IV methyprednisone 40 mg Q8HR -IV antibiotic with Zosyn and vancomycin and azithromycin -DC Iv lasix 20 mg daily due to worsening kidney function. IV NS75 ml/Hr -ipratropium bromide and levalbuterol nebulizer q.6 hour -lezama culture: Respiratory, blood culture.:negative till now -Mrsa negative -strict I&O Cardiology Septic shock due to bilateral pneumonia Sinus tachycardia NSTEMI type 2 due to septic shock -continue management of pneumonia -Off pressors target map greater than 65 -lezama culture: Respiratory, blood culture.:negative till now -ECHO:lvef 50%,possible LVH noted,cannot rule out WMA,rv enlarged,normal atria,no severe valve abnormality noted Nephrologic/acid-base balance RAJENDRA due to VMN -NS 75 ml/hr -Cretinine:0.84, 1.39, 2.00 -GFR 127, 74. -Strict I&O -DC lasix -Avoid nephrotoxic medications -Continue monitor kidney functions. Metabolic acidosis due to lactic acidosis -improving. -lactic acid 4.2, 2.5, 2.1,1.2 -continue current management, keep nasal diuresis. -continue to monitor kidney function Current smoker cigarette smoking Current vape user PUD prophylaxis Protonix DVT prophylaxis Lovenox Intubated on 03/11/2025 Right IJ central line on 03/11/2025 Feeding: Jevity Goals of care discussed with father via phone, full code status on 03/11/2025. Discussed greater than 24 hours. Critical care time spent greater than 78 minutes, outside the procedure. 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 Plan discussed with Dr Linares. Plan discussed with: Other (RN) My Orders My Orders Orders - MALIA MCKEON RESIDENT Procedure Category Date Status Time Complete Blood Count LAB 03/16/25 Verified 04:00 Basic Metabolic Panel LAB 03/16/25 Verified 04:00 Chest Xray 1 View XY 03/16/25 Logged 04:00 Abg W/ Co-Ox RT 03/16/25 Logged 04:00 Lactulose Oral PHA 03/16/25 In Process 10:00 Dietary Evaluation Review Comments: 1) Consider changing TF regimen from Jevity 1.2 @ 30 mL/hr to Vital AF 1.2 @ 60 mL/hr goal rate as tolerated. TF regimen will provide 1728 kcals, 108g Pro, and 1168 mL free H2O per 24 hrs. Goal rate will meet ~ 98% estimated energy needs and ~ 86% estimated protein needs 2) Advance to regular diet when medically feasible, pending ST approval 3) Follow-up with cardiology and pulmonology 4) Continue to monitor I&O, labs, and skin integrity Expected Outcomes/Goals: 1) TF regimen to meet at least 75% estimated daily needs 2) labs to improve 3) diet to advance 4) f/u in 2-3 days MALIA MCKEON RESIDENT Mar 15, 2025 17:21
--- NOTE | 2025-03-16 13:01 | DVHPNRES ---
Progress Note Date Seen: Mar 16, 2025 Resident Creating Document: MALIA MCKEON RESIDENT Medical Necessity Reason Pt with a Central, PICC or Fol: No Subjective Review of Systems Patient is 19 and male with no past medical history transfer to [facility] from [facility] for worsening respiratory distress. For past 5-7 days, patient had worsening shortness of breath, prompted visit in 1 month back hospital. 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 Patient did underwent at [facility] CT angio which showed questionable noncardiogenic pulmonary edema, questionable pneumonia, or ARDS. No PE. Past medical history: None Past surgical history none Allergies none Personal history: As per EMR/nursing report, patient has been smoking 10-12 cigarettes per day, intermittent vaping use. No any other recreational drugs use. Home medication: None 03/11/2025: Patient seen in [facility] Intubated and sedated. Initially patient was in respiratory distress intubated at 8:00 a.m. on 03/11/2025. Urine output 2500 mL last bowel hours. Elevated temperature. No other complaint. 03/12/2025: Patient seen in [facility]. On ventilator. FIow 35%. Off Vasopressors. [id number]. no new complains 03/13/2025:Patient seen in [facility]. On ventilator. FIow 35%. Off Vasopressors. [id number]. no new complains 03/14/2025:Patient seen in [facility]. On ventilator. FIow 35%. Off Vasopressors. [id number]. no new complains. Started on steroids. DC lasix. Monitor kidney function. 03/15/2025: Patient seen in [facility]. On ventilator. Charla 35%. Tmax 99.5. On steroids. NO other complains. 03/16/2025: Patient seen in [facility]. On ventilator. Charla 35%. Tmax 99.5. On steroids. NO other complains. plan for CT chest. NO Bowel movement since 5 days. Objective vital signs Vital Sign Date Time Temp Pulse Resp B/P (MAP) Pulse Ox O2 Delivery O2 Flow Rate FiO2 03/16/25 12:14 57 16 130/71 (90) 97 35 03/16/25 12:00 98.6 209.5 03/16/25 12:00 Mechanical Ventilator+ 03/16/25 09:35 35 Total Intake and Output 03/15/25 03/15/25 03/16/25 14:59 22:59 06:59 Intake Total 806.15 ml 1946.60 ml 1039.60 ml Output Total 1100 ml 1300 ml Balance 806.15 ml 846.60 ml -260.40 ml medications Current Medications Medications Dose Ordered Sig/Perez Route Start Time Stop Time Status Last Admin Dose Admin Levalbuterol HCl 0.625 mg Q6HR NEB 03/11/25 06:00 03/16/25 12:14 0.625 MG Azithromycin 250 ml @ 125 mls/hr DAILY IV 03/12/25 10:00 03/16/25 07:28 125 MLS/HR Sodium Chloride 10 ml Q8HR IV 03/11/25 06:00 03/16/25 07:28 10 ML Enoxaparin Sodium 40 mg DAILY SC 03/11/25 10:00 03/16/25 07:28 40 MG Acetaminophen 650 mg Q6HP PRN PO 03/11/25 01:15 03/14/25 05:12 650 MG Midazolam HCl 100 ml @ 1 mls/hr Q24H IV 03/11/25 08:00 03/16/25 07:18 9 MLS/HR Fentanyl Citrate 250 ml @ 2.5 mls/hr Q24H IV 03/11/25 09:30 03/15/25 19:35 12.5 MLS/HR Norepinephrine Bitartrate 250 ml @ 3.75 mls/hr Q24H IV 03/11/25 09:30 Pantoprazole Sodium 40 mg DAILY IV 03/11/25 10:00 03/16/25 07:27 40 MG Ipratropium [place] 0.5 mg Q6HR NEB 03/11/25 12:00 03/16/25 12:14 0.5 MG Propofol 100 ml @ 2.55 mls/hr Q24H IV 03/11/25 12:00 03/16/25 10:06 22.95 MLS/HR Piperacillin Sod/ Tazobactam Sod 100 ml @ 25 mls/hr Q6H IV 03/11/25 20:00 03/16/25 07:28 25 MLS/HR Enteral Nutritional Formula 1,000 ml 30ML/HR GT 03/12/25 15:30 03/14/25 20:15 1,000 ML Methylprednisolone Sodium Succinate 40 mg Q8HR IV 03/14/25 14:00 03/16/25 05:32 40 MG Sodium Chloride 1,000 ml @ 75 mls/hr [id number] IV 03/15/25 12:30 03/16/25 01:33 75 MLS/HR Lactulose 30 ml DAILY PO 03/16/25 10:00 03/16/25 07:28 30 ML Examination General Appearance: Sedated and intubated Head Exam: Normal inspection Neck Exam: Normal inspection. Non-tender. Normal alignment Pulmonary/Respiratory: Chest non-tender. Clear bilateral breath sounds, bilateral crackles over diffuse bilateral lung zones Cardiovascular/Chest: Regular rate and rhythm. No murmurs. No JVD. Peripheral Pulses: 2+ Radial (R). 2+ Radial (L). 2+ Pedal (R). 2+ Pedal (L) Abdominal Exam: Normal bowel sounds. Soft. normal abdomen, no visible veins, Nontender. No hepatospenomegaly. No masses Ankle Exam: Negative ankle edema Lower extremities: Negative lower extremity edema Neuro/Mental Status: Sedated. laboratory and microbiology Laboratory Tests 03/16/25 03:30 Test 03/16/25 03:30 Range/Units Serum Glucose 145 H 74-106 mg/dL Microbiology Date/Time Source Procedure Growth Status 03/11/25 08:40 Nose MRSA Screen - Final Complete 03/11/25 08:40 Urine - [place] Urine Culture - Final Complete 03/11/25 07:00 Sputum Gram Stain - Final Complete 03/11/25 07:00 Sputum Respiratory Culture - Final Complete 03/11/25 02:41 Blood Blood Culture - Final NO GROWTH AFTER 5 DAYS OF INCUBATION. Complete Problem List/Assessment/Plan Problem List/Assessment/Plan Neurology Acute metabolic encephalopathy Sedated -Versed, fentanyl. Respiratory Acute hypoxemic respiratory failure Bilateral pneumonia Gram-positive was negative ? EVALI(E-cigarette or Vaping Use-Associated Lung Injury) ARDS Non cardiogenic Pulmonary edema -IV methyprednisone 40 mg Q8HR -IV antibiotic with Zosyn and vancomycin and azithromycin -DC Iv lasix 20 mg daily due to worsening kidney function -ipratropium bromide and levalbuterol nebulizer q.6 hour -lezama culture: Respiratory, blood culture.:negative till now -Mrsa negative -strict I&O -CT chest for possible empyema Cardiology Septic shock due to bilateral pneumonia Sinus tachycardia NSTEMI type 2 due to septic shock -continue management of pneumonia -Off pressors target map greater than 65 -lezama culture: Respiratory, blood culture.:negative till now -ECHO:lvef 50%,possible LVH noted,cannot rule out WMA,rv enlarged,normal atria,no severe valve abnormality noted Nephrologic/acid-base balance RAJENDRA due to VMN -Cretinine:0.84, 1.39, 2.00 -GFR 127, 74. -Strict I&O -DC lasix -Avoid nephrotoxic medications -Continue monitor kidney functions. Metabolic acidosis due to lactic acidosis -improving. -lactic acid 4.2, 2.5, 2.1,1.2 -continue current management, keep nasal diuresis. -continue to monitor kidney function Current smoker cigarette smoking Current vape user PUD prophylaxis Protonix DVT prophylaxis Lovenox Intubated on 03/11/2025 Right IJ central line on 03/11/2025 Feeding: Jevity Goals of care discussed with father via phone, full code status on 03/11/2025. Discussed greater than 24 hours. Critical care time spent greater than 75 minutes, outside the procedure. Plan discussed with Dr Echavarria. Plan discussed with: Other (RN) My Orders My Orders Orders - MALIA MCKEON Procedure Category Date Status Time Lactulose Oral PHA 03/16/25 In Process 10:00 Respiratory Misc. RT 03/16/25 Transmitted Order 08:10 Dietary Evaluation Review Comments: 1) Consider changing TF regimen from Jevity 1.2 @ 30 mL/hr to Vital AF 1.2 @ 60 mL/hr goal rate as tolerated. TF regimen will provide 1728 kcals, 108g Pro, and 1168 mL free H2O per 24 hrs. Goal rate will meet ~ 98% estimated energy needs and ~ 86% estimated protein needs 2) Advance to regular diet when medically feasible, pending ST approval 3) Follow-up with cardiology and pulmonology 4) Continue to monitor I&O, labs, and skin integrity Expected Outcomes/Goals: 1) TF regimen to meet at least 75% estimated daily needs 2) labs to improve 3) diet to advance 4) f/u in 2-3 days MALIA MCKEON RESIDENT Mar 16, 2025 13:01
--- NOTE | 2025-03-16 16:45 | DVH ---
Procedure: CT CHEST WITHOUT CONTRAST Reason for study/Clinical History: parapneumonic effusion Comparison Study: XY CHEST XRAY 1 VIEW on DOS: 03/16/25, XY CHEST XRAY 1 VIEW on DOS: 03/15/25, XY CH EST XRAY 1 VIEW on DOS: 03/14/25, XY CHEST XRAY 1 VIEW on DOS: 03/13/25, XY CHEST XRAY 1 VIEW on DOS: 03/13/25 TECHNIQUE: Multidetector CT of the chest was performed from the lung apices to the upper abdomen with out the use of intravenous contract. Axial, coronal and sagittal multiplanar reformats were performed . Radiation Dose Information: CT Dose: CTDI volume is 16.1 cm mGy. Dose-length product is 564.7 mGy*cm The dose indicators for CT are the volume Computed Tomography (CT) Dose Index (CTDIvol) and the Dose Length Product (DLP), and are measured in units of mGy and mGy-cm, respectively. These indicators are not patient dose, but values generated from the CT scanner acquisition factors. The report includes radiation exposure data for exposures received during this examination. FINDINGS: Lower neck: Unremarkable. Lungs: ET tube tip in the distal trachea. Central airways patent. Severe passive atelectatic changes throughout both lower lobes, nearly completely collapsed. Diffuse interlobular septal thickening with patchy ground-glass opacity throughout both lungs. Heart/Vascular Structures: Normal heart size. No pericardial effusion. Lymph Nodes: No adenopathy Pleura: Small to moderate bilateral pleural effusions. No obvious pleural thickening within the limi ts of an unenhanced study. Musculoskeletal: No acute osseous abnormality. Soft tissues: Normal. Upper abdomen: Limited portions of the upper abdomen are unremarkable. IMPRESSION: [id number] bilateral pleural effusions with severe passive atelectatic changes throughout both lower lobes, nearly completely collapsed. Mixed interstitial and ground-glass opacity throughout both lungs most commonly related to fluid over load. Radiation optimization: All CT scans at this facility use at least one of these dose optimization yudelka hniques: automated exposure control mA and/or kV adjustment per patient size (includes targeted exam s where dose is matched to clinical indication) or iterative reconstruction.
[2025-03-17] VITALS (109 sets, daily range): BP systolic 110–146; BP diastolic 52–98; PULSE 46–131; RESP 14–24; TEMP 97.9–99.9; O2SAT 92–100
[2025-03-17 03:18] LABS: Hematocrit 34.6 % (41.0-53.0); Hemoglobin 11.6 g/dL (13.5-17.5); Mean Corpuscular Hemoglobin 27.9 pg (28.0-32.0); Mean Corpuscular Volume 83.2 fL (80.0-100.0)
[2025-03-17 03:29] LABS: Anion Gap 8 (5-15); Carbon Dioxide 31 mmol/L (20-31)
[2025-03-17 03:30] LABS: Calcium 9.1 mg/dL (8.7-10.4)
[2025-03-17 03:31] LABS: Chloride 111 mmol/L (98-107); Potassium 5.4 mmol/L (3.5-5.1); Sodium 150 mmol/L (136-145)
[2025-03-17 03:35] LABS: BUN/Creatinine Ratio 33.9 (10.0-20.0)
[2025-03-17 03:56] LABS: Blood Urea Nitrogen 42 mg/dL (9-23); Glucose 109 mg/dL (74-106)
[2025-03-17] MEDS: ALBUTEROL SULF 2.5 MG/0.5ML(0.5%) NEB SOLN NEB ONE (05:34)
[2025-03-17] MEDS: InsuLIN REG 1unit/0.01ml Soln (100units/ml) IV ONE (05:35)
[2025-03-17] MEDS: DEXTROSE (50%) 50ML SYRG IV ONE (05:35)
[2025-03-17 05:44] LABS: Base Excess 3.4 mmol/L (-2.0-3.0)
[2025-03-17 05:45] LABS: Total Cells Counted 100.0 (100)
--- NOTE | 2025-03-17 06:20 | DVH ---
CHEST RADIOGRAPH Indication: on vent Technique: Single frontal view of the chest was obtained COMPARISON: XY CHEST XRAY 1 VIEW on DOS: 03/16/25, XY CHEST XRAY 1 VIEW on DOS: 03/15/25, XY CHEST XR AY 1 VIEW on DOS: 03/14/25, XY CHEST XRAY 1 VIEW on DOS: 03/13/25, XY CHEST XRAY 1 VIEW on DOS: 03/13 FINDINGS: Lines and Tubes: Interval advancement of the endotracheal tube such that the tip now projects approxi mately 2.9 cm above the level of the galen. Remaining lines and tubes unchanged. Lungs: Stable appearing bilateral pleural effusions and bibasilar pulmonary airspace disease. No pneumothorax. Cardiomediastinal contours: Cardiomegaly. Bones: Unremarkable IMPRESSION: 1. Interval advancement of the endotracheal tube in appropriate position. Remaining lines and tubes u nchanged. 2. Stable bilateral pleural effusions and bibasilar pulmonary airspace disease. 3. Cardiomegaly.
[2025-03-17] MEDS ORDERED: SOD CHL 0.45% 1,000 ML IV SCH (08:00)
[2025-03-17] MEDS: ROCURONIUM 10MG/ML 10ML VIAL IV ONE ×2 (10:30)
--- NOTE | 2025-03-17 11:36 | DVH ---
CHEST RADIOGRAPH Indication: post right lung thoracentesis Technique: Single frontal view of the chest was obtained Comparison: XY CHEST XRAY 1 VIEW on DOS: 03/17/25 FINDINGS: Lines and Tubes: The endotracheal tube terminates 4.5 cm above the galen. There is a right central venous catheter with its tip terminating in the superior vena cava. The enteric tube courses below th e left hemidiaphragm and the tip extends outside the field of view. Lungs: Bilateral opacities are significantly decreased there is a prior study performed earlier same date. Pleura: Decreased right and stable left pleural effusion. No pneumothorax. Cardiomediastinal contours: Unremarkable Bones: No acute osseous abnormality. IMPRESSION: 1. Interval decrease in the bilateral pulmonary opacities. 2. Decreased right and stable left pleural effusion. 3. No pneumothorax.
[2025-03-17] MEDS: D5W 5% 1,000 ML IV SCH (12:29)
--- NOTE | 2025-03-17 12:29 | DVHNC2 ---
Procedure - Ultrasound-guided RIGHT thoracentesis procedure note: Physician: Dr Rosalba Echavarria Environmental Engineering Intern Dr Parker Time out time: 1004 am Patient medications and allergies reviewed. The risks and benefits of the procedure and the sedation options and risk were discussed with the patient's healthcare proxy. All questions were answered and informed consent was obtained. Patient identification and proposed procedure were verified prior to the procedure by the physician, and a nurse in the patient's room. The heart rate, respiratory rate, oxygen saturations, blood pressure, adequacy of pulmonary ventilation, and response to care were monitored throughout the procedure. The physical status of the patient was reassessed after the procedure. Date: 03/17/2025 Consent: Consent was obtained from patient's healthcare proxy prior to procedure. Indication, risks, and benefits were explained at length. Procedure summary: A time out was performed and a chest x-ray was reviewed prior to procedure. The appropriate site was confirmed and marked. My hands were washed immediately prior to the procedure, I wore a surgical cap, mask with protective eyewear, sterile gown and sterile gloves throughout the procedure. The patient was prepped and draped in a sterile manner using chlorhexidine scrub after the appropriate level was percussed and confirmed by ultrasound. 1% lidocaine was used to anesthetize the skin, subcutaneous tissue, superior aspect of the rib periosteum and parietal pleura. A finder needle was then introduced over the superior aspect of the rib to locate the pleural fluid; yellow fluid was aspirated. Thoracentesis needle was then introduced through the skin incision into the pleural space using negative aspiration pressure. The thoracentesis catheter was then threaded without difficulty. 600 mL's of yellow colored fluid were removed without difficulty. The catheter was then removed. No immediate complications were noted during the procedure. A post-procedure chest x-ray demonstrated interval reduction in right pleural effusion and no pneumothorax. Estimated blood loss: Less than 5 mL's. CPT: 91639 Visit Coding Pulmonary Billing Provider: GUNNER ECHAVARRIA MD Date of Service if different f: Mar 17, 2025 Common Visit Codes: PROCEDURE ONLY Procedure Codes: [id number] W/PUNCT (06950 Right Thoracentesis) GUNNER ECHAVARRIA MD Mar 17, 2025 12:29
--- NOTE | 2025-03-17 12:35 | DVHNC2 ---
Procedure - Bronchoscopy procedure note: Indications: Left and Right lower lobe atelectasis, Possible mucous plugging. [employer] Teacher: Lulu Horvath RN Time out: 0930 am Date: 03/17/2025 Medicines: See COMMUNITY PROGRAM ASSISTANT notes. Complications: None Procedure: Patient medications and allergies reviewed. The risks and benefits of the procedure and the sedation options and risk were discussed with the patient's healthcare proxy. All questions were answered and informed consent was obtained. Patient identification and proposed procedure were verified prior to the procedure by the physician, and a nurse, and the respiratory therapist in ICU room. The heart rate, respiratory rate, oxygen saturations, blood pressure, adequacy of pulmonary ventilation, and response to care were monitored throughout the procedure. The physical status of the patient was reassessed after the procedure. After obtaining informed consent, the bronchoscope was introduced through the endotracheal tube and advanced into the trachea bronchial tree of both lungs. The procedure was accomplished without difficulty. The patient tolerated the procedure well. Findings: The trachea is in normal caliber. The galen is sharp. The tracheobronchial tree of the right lung was examined to at least the first subsegmental level. The bronchial mucosa was inflamed and the anatomy in the right lung are normal. There are no endobronchial lesions. There was copious whitish secretions from right main stem bronchus onward throughout R1-R10. Right middle lobe (RML) Bronchoalveolar lavage (BAL) obtained. RML BAL sent for gram stain and culture, viral culture, fungal culture, and AFB smear and culture. The left upper lobe, lingula, and left lower lobe were examined to at least the first subsegmental level. Bronchial mucosa and anatomy in the left upper lobe and lingula are normal. There were no endobronchial lesions. There were scant secretions. There was no active bleeding at the completion of the procedure. Estimated blood loss: Less than 5 mL. Impression: Right lower lobe atelectasis due to mucous plugging Mucous plugging from R1-R10 RML BAL performed Recommendation: Follow-up RML BAL results. Procedure codes: 46508, bronchoscopy, rigid and flexible, including fluoroscopic guidance, one performed; with bronchial endobronchial broncho-alveolar lavage, single or multiple sites Visit Coding Pulmonary Billing Provider: GUNNER CROWLEY MD Date of Service if different f: Mar 17, 2025 Common Visit Codes: PROCEDURE ONLY Procedure Codes: [id number] (57199 Bronchoscopy with Bronchoalveolar lavage) GUNNER CROWLEY MD Mar 17, 2025 12:35
--- NOTE | 2025-03-17 13:28 | DVHPNRES ---
Progress Note Date Seen: Mar 17, 2025 Resident Creating Document: MALIA MCKEON RESIDENT Medical Necessity Reason Pt with a Central, PICC or Fol: No Subjective Review of Systems Patient is 19 and male with no past medical history transfer to [facility] from [facility], [place] for worsening respiratory distress. For past 5-7 days, patient had worsening shortness of breath, prompted visit in 1 month back hospital. 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 Patient did underwent at [facility], [place] CT angio which showed questionable noncardiogenic pulmonary edema, questionable pneumonia, or ARDS. No PE. Past medical history: None Past surgical history none Allergies none Personal history: As per EMR/nursing report, patient has been smoking 10-12 cigarettes per day, intermittent vaping use. No any other recreational drugs use. Home medication: None 03/11/2025: Patient seen in [facility]. Intubated and sedated. Initially patient was in respiratory distress intubated at 8:00 a.m. on 03/11/2025. Urine output 2500 mL last bowel hours. Elevated temperature. No other complaint. 03/12/2025: Patient seen in [facility]. On ventilator. FIow 35%. Off Vasopressors. [id number]. no new complains 03/13/2025:Patient seen in [facility]. On ventilator. FIow 35%. Off Vasopressors. [id number]. no new complains 03/14/2025:Patient seen in [facility]. On ventilator. FIow 35%. Off Vasopressors. [id number]. no new complains. Started on steroids. DC lasix. Monitor kidney function. 03/15/2025: Patient seen in [facility]. On ventilator. Charla 35%. Tmax 99.5. On steroids. NO other complains. 03/16/2025: Patient seen in [facility]. On ventilator. Charla 35%. Tmax 99.5. On steroids. NO other complains. plan for CT chest. NO Bowel movement since 5 days.. 03/17/2025: Patient is continued to be on ventilator, FiO2 35%. Underwent right thoracentesis, drained 600 mL fluids. Underwent bronchoscopy as well. No fever. No bowel movement till now. Objective vital signs Vital Sign Date Time Temp Pulse Resp B/P (MAP) Pulse Ox O2 Delivery O2 Flow Rate FiO2 03/17/25 12:17 86 16 124/61 (82) 94 30 03/17/25 12:15 99.3 210.7 03/17/25 12:00 Mechanical Ventilator+ 03/17/25 09:55 30 Total Intake and Output 03/16/25 03/16/25 03/17/25 15:00 23:00 07:00 Intake Total 1153.05 ml 1052.05 ml 868.6 ml Output Total 780 ml 1850 ml Balance 1153.05 ml 272.05 ml -981.4 ml medications Current Medications Medications Dose Ordered Sig/Perez Route Start Time Stop Time Status Last Admin Dose Admin Levalbuterol HCl 0.625 mg Q6HR NEB 03/11/25 06:00 03/17/25 12:16 0.625 MG Sodium Chloride 10 ml Q8HR IV 03/11/25 06:00 03/17/25 07:13 10 ML Enoxaparin Sodium 40 mg DAILY SC 03/11/25 10:00 03/17/25 07:12 40 MG Acetaminophen 650 mg Q6HP PRN PO 03/11/25 01:15 03/14/25 05:12 650 MG Midazolam HCl 100 ml @ 1 mls/hr Q24H IV 03/11/25 08:00 03/17/25 04:36 10 MLS/HR Fentanyl Citrate 250 ml @ 2.5 mls/hr Q24H IV 03/11/25 09:30 03/16/25 18:28 12.5 MLS/HR Norepinephrine Bitartrate 250 ml @ 3.75 mls/hr Q24H IV 03/11/25 09:30 Pantoprazole Sodium 40 mg DAILY IV 03/11/25 10:00 03/17/25 07:09 40 MG Ipratropium [place] 0.5 mg Q6HR NEB 03/11/25 12:00 03/17/25 12:16 0.5 MG Propofol 100 ml @ 2.55 mls/hr Q24H IV 03/11/25 12:00 03/17/25 04:54 15.3 MLS/HR Piperacillin Sod/ Tazobactam Sod 100 ml @ 25 mls/hr Q6H IV 03/11/25 20:00 03/17/25 12:28 25 MLS/HR Enteral Nutritional Formula 1,000 ml 30ML/HR GT 03/12/25 15:30 03/14/25 20:15 1,000 ML Methylprednisolone Sodium Succinate 40 mg Q8HR IV 03/14/25 14:00 03/17/25 12:28 40 MG Lactulose 30 ml DAILY PO 03/16/25 10:00 03/17/25 07:12 30 ML Dextrose 1,000 ml @ 50 mls/hr Q20H IV 03/17/25 11:00 03/17/25 12:29 50 MLS/HR Examination General Appearance: Sedated and intubated Head Exam: Normal inspection Neck Exam: Normal inspection. Non-tender. Normal alignment Pulmonary/Respiratory: Chest non-tender. Clear bilateral breath sounds, bilateral crackles over diffuse bilateral lung zones Cardiovascular/Chest: Regular rate and rhythm. No murmurs. No JVD. Peripheral Pulses: 2+ Radial (R). 2+ Radial (L). 2+ Pedal (R). 2+ Pedal (L) Abdominal Exam: Normal bowel sounds. Soft. normal abdomen, no visible veins, Nontender. No hepatospenomegaly. No masses Ankle Exam: Negative ankle edema Lower extremities: Negative lower extremity edema Neuro/Mental Status: Sedated. laboratory and microbiology Laboratory Tests 03/17/25 09:12 03/17/25 02:56 Test 03/17/25 02:56 Range/Units Serum Glucose 109 H 74-106 mg/dL Microbiology Date/Time Source Procedure Growth Status 03/11/25 08:40 Nose MRSA Screen - Final Complete 03/11/25 08:40 Urine - [place] Urine Culture - Final Complete 03/11/25 07:00 Sputum Gram Stain - Final Complete 03/11/25 07:00 Sputum Respiratory Culture - Final Complete 03/11/25 02:41 Blood Blood Culture - Final NO GROWTH AFTER 5 DAYS OF INCUBATION. Complete Problem List/Assessment/Plan Problem List/Assessment/Plan Neurology Acute metabolic encephalopathy Sedated -Versed, fentanyl. Respiratory Acute hypoxemic respiratory failure Bilateral pneumonia Gram-positive was negative ? EVALI(E-cigarette or Vaping Use-Associated Lung Injury) ARDS Non cardiogenic Pulmonary edema -IV methyprednisone 40 mg Q8HR -IV antibiotic with Zosyn and vancomycin and azithromycin -DC Iv lasix 20 mg daily due to worsening kidney function -ipratropium bromide and levalbuterol nebulizer q.6 hour -lezama culture: Respiratory, blood culture.:negative till now -Mrsa negative -strict I&O -CT chest(03/17/2025) :Dnawv-ix-zskrxetk bilateral pleural effusions with severe passive atelectatic changes throughout both lower lobes, nearly completely collapsed.Mixed interstitial and ground-glass opacity throughout both lungs most commonly related to fluid overload. Bilateral pleural effusion -S/P thoracentesis(03/17/2025): 600 ml drained. -S/P broncoscopy (03/17/2025) Cardiology Septic shock due to bilateral pneumonia Sinus tachycardia NSTEMI type 2 due to septic shock -continue management of pneumonia -Off pressors target map greater than 65 -lezama culture: Respiratory, blood culture.:negative till now -ECHO:lvef 50%,possible LVH noted,cannot rule out WMA,rv enlarged,normal atria,no severe valve abnormality noted Nephrologic/acid-base balance RAJENDRA due to VMN -Cretinine:0.84, 1.39, 2.00 -GFR 127, 74. -Strict I&O -DC lasix -Avoid nephrotoxic medications -Continue monitor kidney functions. Metabolic acidosis due to lactic acidosis -improving. -lactic acid 4.2, 2.5, 2.1,1.2 -continue current management, keep nasal diuresis. -continue to monitor kidney function Hypernatremia -D5W 50 ml /hr -repeat in AM Current smoker cigarette smoking Current vape user PUD prophylaxis Protonix DVT prophylaxis Lovenox Intubated on 03/11/2025 Right IJ central line on 03/11/2025 Feeding: [facility] Called father and received consent for thoracentesis and broncoscopy . S/P both procedure. sample has been sent to lab. informed all to father. No other new events. Goals of care discussed with father via phone, full code status on 03/11/2025. Discussed greater than 24 hours. Critical care time spent greater than 79 minutes, outside the procedure. Plan discussed with Dr Echavarria. Plan discussed with: Other (Rajwinder and RN) My Orders My Orders Orders - MALIA MCKEON RESIDENT Procedure Category Date Status Time Chest Xray 1 View XY 03/17/25 Resulted 04:00 Abg W/ Co-Ox RT 03/17/25 Logged 04:00 Respiratory Culture BYRON 03/17/25 In Process W/ Gs 10:05 Fungus Culture With BYRON 03/17/25 Logged Stain 10:05 AFB PATHOLOGY 03/17/25 Transmitted [id number]-Itdixnjo-Uiohvpos 10:05 Viral Culture BYRON 03/17/25 Logged 10:05 Body Fluid Culture W/ BYRON 03/17/25 In Process GS 10:53 Body Fluid Ph LAB 03/17/25 In Process 10:53 Body Fluids, Diff. LAB 03/17/25 In Process Cell Count 10:53 Glucose Body Fluid LAB 03/17/25 In Process 10:53 Protein, Body Fluid LAB 03/17/25 In Process 10:53 Lactate LAB 03/17/25 In Process Dehydrogenase, Fluid 10:53 Cytology BYRON 03/17/25 Transmitted 10:53 D5w 5% (Dextrose 5%) PHA 03/17/25 In Process 11:00 Dietary Evaluation Review Comments: 1) Consider changing TF regimen from Jevity 1.2 @ 30 mL/hr to Vital AF 1.2 @ 60 mL/hr goal rate as tolerated. TF regimen will provide 1728 kcals, 108g Pro, and 1168 mL free H2O per 24 hrs. Goal rate will meet ~ 98% estimated energy needs and ~ 86% estimated protein needs 2) Advance to regular diet when medically feasible, pending ST approval 3) Follow-up with cardiology and pulmonology 4) Continue to monitor I&O, labs, and skin integrity Expected Outcomes/Goals: 1) TF regimen to meet at least 75% estimated daily needs 2) labs to improve 3) diet to advance 4) f/u in 2-3 days MALIA MCKEON RESIDENT Mar 17, 2025 13:28
--- NOTE | 2025-03-17 18:12 | DVHPN2 ---
Subjective DOS: 03/17/2025 Patient seen and examined at bedside. Sedated, intubated on mechanical ventilator. Overnight events reviewed. Changes from previous H/P or p: No Changes Eyes: No Pain, No Vision change, No Conjunctivae inflammation, No Eyelid inflammation, No Other, No Redness ENT: No Ear pain, No Ear discharge, No Nose pain, No Nose discharge, No Nose congestion, No Mouth pain, No Mouth swelling, No Throat pain, No Throat swelling, No Other Cardiovascular: No Chest Pain, No Palpitations, No Orthopnea, No Paroxysmal Noc. Dyspnea, No Edema, No Lt Headedness, No Other Respiratory: No Cough, No Dry; Shortness of breath, SOB with excertion; No Wheezing, No Hemoptysis, No Pleuritic Pain, No Sputum; Other (SOB at rest) Gastrointestinal: No Nausea, No Vomiting, No Abdominal Pain, No Diarrhea, No Constipation, No Melena, No Hematochezia, No Other Genitourinary: No Dysuria, No Frequency, No Incontinence, No Hematuria, No Retention, No Other Skin: No Rash, No Lesions, No Jaundice, No Bruising, No Other Objective Vitals Vital Signs Date Time Temp Pulse Resp B/P (MAP) Pulse Ox O2 Delivery O2 Flow Rate FiO2 03/17/25 16:00 30 03/17/25 16:00 77 16 121/57 (78) 96 03/17/25 16:00 99.1 210.4 03/17/25 16:00 Mechanical Ventilator+ 03/17/25 09:55 30 Intake/Output Intake and Output 03/17/25 07:00 Intake Total 3073.70 ml Output Total 2630 ml Balance 443.70 ml Intake Oral 100 ml IV Total 2973.70 ml Output Urine Total 2630 ml Exam Gen.: Patient lying in bed in medical ICU. Sedated, intubated on mechanical ventilator. Head: Normocephalic, atraumatic. Eyes: PERRLA. Ears: Normal external anatomy. Throat: Endotracheal tube and orogastric tube in place. Neck: Supple, trachea midline. Chest: Transmitted breath sounds bilaterally. Decreased air entry bilaterally. No wheezing. Bibasilar crackles. Cardiovascular: Positive S1, positive S2. Regular rate and rhythm. Abdomen: Positive bowel sounds in all 4 quadrants. Soft, nontender, nondistended. : Orozco in place. Normal external genitalia. Rectal: Deferred. Skin: Warm, dry. Intact. Extremities: 2+ radial pulses bilaterally. No lower extremity edema. Neuro: Sedated. Medications Current Medications Medications Dose Ordered Sig/Perez Route Start Time Stop Time Status Last Admin Dose Admin Levalbuterol HCl 0.625 mg Q6HR NEB 03/11/25 06:00 03/17/25 12:16 0.625 MG Sodium Chloride 10 ml Q8HR IV 03/11/25 06:00 03/17/25 07:13 10 ML Enoxaparin Sodium 40 mg DAILY SC 03/11/25 10:00 03/17/25 07:12 40 MG Acetaminophen 650 mg Q6HP PRN PO 03/11/25 01:15 03/14/25 05:12 650 MG Midazolam HCl 100 ml @ 1 mls/hr Q24H IV 03/11/25 08:00 03/17/25 14:59 10 MLS/HR Fentanyl Citrate 250 ml @ 2.5 mls/hr Q24H IV 03/11/25 09:30 03/17/25 14:59 17.5 MLS/HR Norepinephrine Bitartrate 250 ml @ 3.75 mls/hr Q24H IV 03/11/25 09:30 Pantoprazole Sodium 40 mg DAILY IV 03/11/25 10:00 03/17/25 07:09 40 MG Ipratropium [place] 0.5 mg Q6HR NEB 03/11/25 12:00 03/17/25 12:16 0.5 MG Propofol 100 ml @ 2.55 mls/hr Q24H IV 03/11/25 12:00 03/17/25 04:54 15.3 MLS/HR Piperacillin Sod/ Tazobactam Sod 100 ml @ 25 mls/hr Q6H IV 03/11/25 20:00 03/17/25 12:28 25 MLS/HR Enteral Nutritional Formula 1,000 ml 30ML/HR GT 03/12/25 15:30 03/14/25 20:15 1,000 ML Methylprednisolone Sodium Succinate 40 mg Q8HR IV 03/14/25 14:00 03/17/25 12:28 40 MG Lactulose 30 ml DAILY PO 03/16/25 10:00 03/17/25 07:12 30 ML Dextrose 1,000 ml @ 50 mls/hr Q20H IV 03/17/25 11:00 03/17/25 12:29 50 MLS/HR Laboratory Results Laboratory Tests 03/17/25 02:56 03/17/25 09:12 Chemistry Test 03/17/25 02:56 Calcium Level 9.1 mg/dL (8.7-10.4) Urinalysis Test 03/11/25 08:40 03/14/25 23:45 Urine Hyaline Casts Few /lpf (0 - 2) Urine Mucus Few (None Seen) Urine Color Light-yellow (Yellow) Urine Clarity Turbid (Clear) H Urine pH 5.0 (5.0-9.0) Urine Specific [place] 1.022 (1.001-1.035) Urine Protein Trace (Negative) H Urine Ketones Negative (Negative) Urine Blood 2+ /uL (Negative) H Urine Nitrite Negative (Negative) Urine Bilirubin Negative (Negative) Urine Urobilinogen Normal mg/dL (Negative) Urine Leukocyte Esterase Negative /uL (Negative) Urine RBC 202 /hpf (0 - 3) Urine Microscopic WBC 4 /HPF (0-3) H Urine Squamous Epithelial Cells None seen /hpf (<5) Urine Uric Acid Crystals Mod /hpf (None Seen) Urine Bacteria None seen /hpf (None Seen) Urine Creatinine 105.48 mg/dL (30.0-125.0) Urine Protein/Creatinine Ratio 0.41 Urine Sodium 15 mmol/L (40-220) L Urine Glucose Normal mg/dL (Normal) Urine Total Protein 43.7 mg/dL (1-14) H Blood Gas Results Test 03/17/25 05:39 Arterial Blood pH 7.382 (7.350-7.450) FiO2 % 30.0 Microbiology Microbiology Date/Time Source Procedure Growth Status 03/17/25 11:11 Lung Pending Resulted 03/17/25 11:11 Lung Pending Resulted 03/17/25 11:11 Lung Pending Resulted 03/17/25 11:11 Lung Pending Resulted 03/17/25 11:11 Lung - Final See Separate Report... Resulted 03/11/25 08:40 Urine - [place] Urine Culture - Final Complete 03/11/25 07:00 Sputum Gram Stain - Final Complete 03/11/25 07:00 Sputum Respiratory Culture - Final Complete 03/11/25 02:41 Blood Blood Culture - Final NO GROWTH AFTER 5 DAYS OF INCUBATION. Complete Assessment/Plan Assessment/Plan Impression: Acute hypoxic respiratory failure On mechanical ventilator Pleural effusion Atelectasis, compressive Septic shock Events: Remains on vent support On AC mode; RR 16, VT 500, PEEP 8, FiO2 30% Improved FIO2 requirements Sedated on Propofol, Versed, Fentanyl ABG reviewed, compensated. CT chest reviewed; notable for bilateral pleural effusions and interstitial opacities. Continue antibiotics F/u cultures Continue bronchodilators. IV steroids Accu-Cheks, ISS. S/p right thoracentesis today with 600 mL yellow fluid removed from right pleural space. Follow up pleural fluid cx and cytology Bronchoscopy performed today with RML BAL obtained, sent for bacterial/fungal/viral + AFB smear and cultures See separate procedure notes for details of both procedures. Labs and imaging reviewed. Rest of plan as noted below. Plan: s/p intubation on mechanical ventilator. On AC mode; RR 16, VT 500, PEEP 8, FiO2 30% Titrate FIO2 to keep O2 saturation above 90%. VAP bundle. Daily ABG and CXR while intubated Sedate for ventilator synchrony S/p central line placement for administration of pressors. Pressors as necessary for hemodynamic support Titrate to keep mean arterial pressure greater than 65 mmHg. Continue bronchodilators. Continue antibiotics. Follow up cultures. IV steroids Accu-Cheks, ISS. Monitor renal function Monitor electrolytes. Supplement as necessary. Monitor ins and outs. Maintain euvolemia. GI prophylaxis. DVT prophylaxis. Prognosis: Poor given patient's multiple co-morbidities. Condition: Critical Rest of plan per hospitalist and other consultants. A total of 35 minutes of critical care time was spent reviewing the patient record, examining the patient, making a diagnostic and therapeutic plan, discussing this plan with the medical personnel, following up on diagnostic studies and following the patient for clinical stability excluding any and all procedures. At least 50% of this time was spent in direct, [id number] contact. Thank you, MARIUSZ Montoya, for allowing me to participate in this patient's care. Further recommendations will depend on the patient's clinical course. Please do not hesitate to contact me if you have any questions or concerns. This medical document was created using an electronic medical record system with [employer] dictation system. Although these documentations are being carefully reviewed, there may still be some phonetic and typographical changes. The errors are purely typographical, due to imperfection on the software program, and do not reflect any compromise in the patient's medical care. Plan discussed with: Other (LIZETTE Lawson) My Orders Orders - GUNNER CROWLEY MD Procedure Category Date Status Time Rt To Be Bedside For RT 03/17/25 Transmitted Broncho 10:30 Chest Portable XY 03/17/25 Resulted 10:44 Respiratory Misc. RT 03/17/25 Transmitted Order 14:15 Visit Coding Pulmonary Billing Provider: GUNNER CROWLEY MD Date of Service if different f: Mar 17, 2025 Common Visit Codes: [id number] INP/OBS CARE(HIGH), 24366-[id number] CARE 30-74 MIN GUNNER CROWLEY MD Mar 17, 2025 18:12
[2025-03-18] VITALS (110 sets, daily range): BP systolic 108–167; BP diastolic 52–109; PULSE 44–118; RESP 15–23; TEMP 97.7–99.9; O2SAT 92–100
[2025-03-18 04:59] LABS: Hematocrit 33.5 % (41.0-53.0); Hemoglobin 11.4 g/dL (13.5-17.5); Mean Corpuscular Hemoglobin 28.4 pg (28.0-32.0); Mean Corpuscular Volume 83.5 fL (80.0-100.0)
--- NOTE | 2025-03-18 05:05 | DVH ---
CHEST RADIOGRAPH Indication: on vent Technique: Single frontal view of the chest was obtained Comparison: XY CHEST PORTABLE on DOS: 03/17/25, XY CHEST XRAY 1 VIEW on DOS: 03/17/25, XY CHEST XRAY 1 VIEW on DOS: 03/16/25 IMPRESSION: Right IJ catheter tip has advanced and is now likely within the right atrium, consider retraction by approximately 5 cm. Heart appears stable in size. Endotracheal tube tip is approximately 2 cm from the galen. Enteric t ube tip in the region of the stomach. Obscuration of the left hemidiaphragm may be on the basis of effusion, atelectasis, or consolidation. The right lung appears clear. No pneumothorax.
[2025-03-18 05:06] LABS: Chloride 104 mmol/L (98-107); Sodium 144 mmol/L (136-145)
[2025-03-18 05:07] LABS: Anion Gap 8 (5-15)
[2025-03-18 05:08] LABS: Calcium 9.0 mg/dL (8.7-10.4)
[2025-03-18 05:13] LABS: BUN/Creatinine Ratio 31.2 (10.0-20.0); Magnesium 2.3 mg/dL (1.6-2.6)
[2025-03-18 05:15] LABS: Blood Urea Nitrogen 34 mg/dL (9-23); Carbon Dioxide 32 mmol/L (20-31); Glucose 113 mg/dL (74-106)
[2025-03-18 05:17] LABS: Potassium 5.6 mmol/L (3.5-5.1)
[2025-03-18] MEDS: ALBUTEROL SULF 2.5 MG/0.5ML(0.5%) NEB SOLN NEB ONE (06:31)
[2025-03-18] MEDS: FUROSEMIDE 40 MG/4 ML VIAL IV ONE (06:36)
[2025-03-18] MEDS: SODIUM BICARB 8.4% 50Meq/50ml SYR INJ IV ONE (06:36)
[2025-03-18] MEDS: CALCIUM GLUC 1,000mg/50ml-NS 50 ML IV ONE (06:36)
[2025-03-18] MEDS: InsuLIN REG 1unit/0.01ml Soln (100units/ml) IV ONE (06:36)
[2025-03-18] MEDS: DEXTROSE (50%) 50ML SYRG IV ONE (06:36)
[2025-03-18 07:03] LABS: Total Cells Counted 100.0 (100)
[2025-03-18 07:31] LABS: Base Excess 6.7 mmol/L (-2.0-3.0)
[2025-03-18] MEDS: ROCURONIUM 10MG/ML 10ML VIAL IV ONE ×2 (11:45→12:15)
--- NOTE | 2025-03-18 12:44 | DVH ---
CHEST RADIOGRAPH Indication: s/p Left thorachentesis Technique: Single frontal view of the chest was obtained Comparison: XY CHEST XRAY 1 VIEW on DOS: 03/18/25, XY CHEST PORTABLE on DOS: 03/17/25, XY CHEST XRAY 1 VIEW on DOS: 03/17/25 FINDINGS: Lines and Tubes: Endotracheal tube 7.6 cm above the galen. Right internal jugular catheter in place in the right atrium. Lungs: No focal consolidation. Pleura: No effusion. No pneumothorax. Cardiomediastinal contours: Unremarkable Bones: No acute osseous abnormality. IMPRESSION: 1. Endotracheal tube 7.6 cm above the galen. 2. Right internal jugular catheter in place in the right atrium unchanged 3. Enteric tube below the left diaphragm in the stomach unchanged from earlier study 4. Cardiopulmonary findings are stable and unchanged from 03/18/2025 at 3:58 a.m.
--- NOTE | 2025-03-18 15:45 | DVHPNRES ---
Progress Note Date Seen: Mar 18, 2025 Resident Creating Document: PABLO VERGARA RESIDENT Medical Necessity Reason Pt with a Central, PICC or Fol: No Subjective Review of Systems Patient is 19 and male with no past medical history transfer to [facility] from [facility] for worsening respiratory distress. For past 5-7 days, patient had worsening shortness of breath, prompted visit in 1 month back hospital. 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 Patient did underwent at [facility] CT angio which showed questionable noncardiogenic pulmonary edema, questionable pneumonia, or ARDS. No PE. Past medical history: None Past surgical history none Allergies none Personal history: As per EMR/nursing report, patient has been smoking 10-12 cigarettes per day, intermittent vaping use. No any other recreational drugs use. Home medication: None 03/11/2025: Patient seen in [facility]. Intubated and sedated. Initially patient was in respiratory distress intubated at 8:00 a.m. on 03/11/2025. Urine output 2500 mL last bowel hours. Elevated temperature. No other complaint. 03/12/2025: Patient seen in [facility]. On ventilator. FIow 35%. Off Vasopressors. [id number]. no new complains 03/13/2025:Patient seen in [facility]. On ventilator. FIow 35%. Off Vasopressors. [id number]. no new complains 03/14/2025:Patient seen in [facility]. On ventilator. FIow 35%. Off Vasopressors. [id number]. no new complains. Started on steroids. DC lasix. Monitor kidney function. 03/15/2025: Patient seen in [facility]. On ventilator. Charla 35%. Tmax 99.5. On steroids. NO other complains. 03/16/2025: Patient seen in [facility]. On ventilator. Charla 35%. Tmax 99.5. On steroids. NO other complains. plan for CT chest. NO Bowel movement since 5 days.. 03/17/2025: Patient is continued to be on ventilator, FiO2 35%. Underwent right thoracentesis, drained 600 mL fluids. Underwent bronchoscopy as well. No fever. No bowel movement till now. 03/18/25: Patient is seen in the [facility]. On ventilator, FiO2 of 30 %. Patient underwent left thoracocentesis today with 625 mL yellow fluid output. Repeat chest x-ray was normal. patient is sedated with Versed, fentanyl, propofol. Cpap Trial Tomorrow. Objective vital signs Vital Sign Date Time Temp Pulse Resp B/P (MAP) Pulse Ox O2 Delivery O2 Flow Rate FiO2 03/18/25 13:40 86 03/18/25 13:40 16 100 Mechanical Ventilator+ 30 30 03/18/25 13:11 125/66 (85) 03/18/25 12:45 99.1 210.4 03/18/25 09:37 30 Total Intake and Output 03/17/25 03/17/25 03/18/25 15:00 23:00 07:00 Intake Total 808.2 ml 908.10 ml 1161.05 ml Output Total 2200 ml 1800 ml Balance 808.2 ml -1291.90 ml -638.95 ml medications Current Medications Medications Dose Ordered Sig/Perez Route Start Time Stop Time Status Last Admin Dose Admin Levalbuterol HCl 0.625 mg Q6HR NEB 03/11/25 06:00 03/18/25 11:40 0.625 MG Sodium Chloride 10 ml Q8HR IV 03/11/25 06:00 03/18/25 07:28 10 ML Enoxaparin Sodium 40 mg DAILY SC 03/11/25 10:00 03/18/25 07:28 40 MG Acetaminophen 650 mg Q6HP PRN PO 03/11/25 01:15 03/14/25 05:12 650 MG Midazolam HCl 100 ml @ 1 mls/hr Q24H IV 03/11/25 08:00 03/18/25 13:15 12 MLS/HR Fentanyl Citrate 250 ml @ 2.5 mls/hr Q24H IV 03/11/25 09:30 03/17/25 23:05 17.5 MLS/HR Norepinephrine Bitartrate 250 ml @ 3.75 mls/hr Q24H IV 03/11/25 09:30 Pantoprazole Sodium 40 mg DAILY IV 03/11/25 10:00 03/18/25 07:28 40 MG Ipratropium Casanova 0.5 mg Q6HR NEB 03/11/25 12:00 03/18/25 11:40 0.5 MG Piperacillin Sod/ Tazobactam Sod 100 ml @ 25 mls/hr Q6H IV 03/11/25 20:00 03/18/25 13:14 25 MLS/HR Enteral Nutritional Formula 1,000 ml 30ML/HR GT 03/12/25 15:30 03/17/25 18:24 1,000 ML Methylprednisolone Sodium Succinate 40 mg Q8HR IV 03/14/25 14:00 03/18/25 13:14 40 MG Lactulose 30 ml DAILY PO 03/16/25 10:00 03/18/25 07:28 30 ML Dextrose 1,000 ml @ 50 mls/hr Q20H IV 03/17/25 11:00 03/18/25 05:56 50 MLS/HR Propofol 100 ml @ 2.424 mls/ hr Q24H IV 03/18/25 15:30 UNV Examination General Appearance: Sedated and intubated Head Exam: Normal inspection Neck Exam: Normal inspection. Non-tender. Normal alignment Pulmonary/Respiratory: Chest non-tender. Clear bilateral breath sounds, bilateral crackles over diffuse bilateral lung zones Cardiovascular/Chest: Regular rate and rhythm. No murmurs. No JVD. Peripheral Pulses: 2+ Radial (R). 2+ Radial (L). 2+ Pedal (R). 2+ Pedal (L) Abdominal Exam: Normal bowel sounds. Soft. normal abdomen, no visible veins, Nontender. No hepatospenomegaly. No masses Ankle Exam: Negative ankle edema Lower extremities: Negative lower extremity edema Neuro/Mental Status: Sedated. laboratory and microbiology Laboratory Tests 03/18/25 13:05 03/18/25 03:10 Test 03/18/25 03:10 Range/Units Serum Glucose 113 H 74-106 mg/dL Microbiology Date/Time Source Procedure Growth Status 03/17/25 12:00 Pleural Fluid Gram Stain - Final Resulted 03/17/25 12:00 Pleural Fluid Body Fluid Culture - Preliminary Resulted 03/17/25 11:11 Lung Pending Resulted 03/17/25 11:11 Lung Pending Resulted 03/17/25 11:11 Lung Pending Resulted 03/17/25 11:11 Lung Pending Resulted 03/17/25 11:11 Lung - Final See Separate Report... Resulted 03/17/25 11:11 Bronchial Washings Gram Stain - Final Resulted 03/17/25 11:11 Bronchial Washings Respiratory Culture - Preliminary Resulted 03/11/25 08:40 Urine - [place] Urine Culture - Final Complete 03/11/25 02:41 Blood Blood Culture - Final NO GROWTH AFTER 5 DAYS OF INCUBATION. Complete Problem List/Assessment/Plan Problem List/Assessment/Plan Neurology Acute metabolic encephalopathy Sedated -Versed, fentanyl. Respiratory Acute hypoxemic respiratory failure Bilateral pneumonia Gram-positive was negative ? EVALI(E-cigarette or Vaping Use-Associated Lung Injury) ARDS Non cardiogenic Pulmonary edema -IV methyprednisone 40 mg Q8HR -IV antibiotic with Zosyn and vancomycin and azithromycin -DC Iv lasix 20 mg daily due to worsening kidney function -ipratropium bromide and levalbuterol nebulizer q.6 hour -lezama culture: Respiratory, blood culture.:negative till now -Mrsa negative -strict I&O -CT chest(03/17/2025) :[id number] bilateral pleural effusions with severe passive atelectatic changes throughout both lower lobes, nearly completely collapsed.Mixed interstitial and ground-glass opacity throughout both lungs most commonly related to fluid overload. Bilateral pleural effusion -S/P thoracentesis(03/17/2025): 600 ml drained. -S/P bronchoscopy (03/17/2025) Cardiology Septic shock due to bilateral pneumonia Sinus tachycardia NSTEMI type 2 due to septic shock -continue management of pneumonia -Off pressors target map greater than 65 -lezama culture: Respiratory, blood culture.:negative till now -ECHO:lvef 50%,possible LVH noted,cannot rule out WMA, rv enlarged,normal atria,no severe valve abnormality noted Nephrologic/acid-base balance RAJENDRA due to VMN -Cretinine:0.84, 1.39, 2.00 -GFR 127, 74. -Strict I&O -DC lasix -Avoid nephrotoxic medications -Continue monitor kidney functions. Metabolic acidosis due to lactic acidosis -Improving. -lactic acid 4.2, 2.5, 2.1,1.2 -continue current management, keep nasal diuresis. -continue to monitor kidney function Hypernatremia -D5W 50 ml /hr -repeat in AM Current smoker cigarette smoking Current vape user PUD prophylaxis Protonix DVT prophylaxis Lovenox Intubated on 03/11/2025 Right IJ central line on 03/11/2025 Feeding: Vaughn Called father and received consent for thoracentesis and bronchoscopy . S/P both procedure. sample has been sent to lab. informed all to father. No other new events. Goals of care discussed with father via phone, full code status on 03/11/2025. Discussed greater than 24 hours. Critical care time spent greater than 79 minutes, outside the procedure. Plan discussed with Dr Echavarria. Plan discussed with: Other (Father, RN) My Orders My Orders Orders - PABLO VERGARA RESIDENT Procedure Category Date Status Time Chest Xray 1 View XY 03/18/25 Resulted 11:53 Body Fluid Culture W/ BYRON 03/18/25 In Process GS 11:53 Glucose Body Fluid LAB 03/18/25 In Process 11:53 Protein, Body Fluid LAB 03/18/25 In Process 11:53 Lactate LAB 03/18/25 In Process Dehydrogenase, Fluid 11:53 Cytology BYRON 03/18/25 Transmitted 11:53 Dietary Evaluation Review Comments: 1) Consider changing TF regimen from Jevity 1.2 @ 30 mL/hr to Vital AF 1.2 @ 60 mL/hr goal rate as tolerated. TF regimen will provide 1728 kcals, 108g Pro, and 1168 mL free H2O per 24 hrs. Goal rate will meet ~ 98% estimated energy needs and ~ 86% estimated protein needs 2) Advance to regular diet when medically feasible, pending ST approval 3) Follow-up with cardiology and pulmonology 4) Continue to monitor I&O, labs, and skin integrity Expected Outcomes/Goals: 1) TF regimen to meet at least 75% estimated daily needs 2) labs to improve 3) diet to advance 4) f/u in 2-3 days PABLO VERGARA RESIDENT Mar 18, 2025 15:45
[2025-03-18] MEDS: PROPOFOL 100 ML IV SCH (15:46)
[2025-03-18] MEDS: DEXMEDETOMIDINE HCL IN D5W 100 ML IV SCH (23:40)
--- NOTE | 2025-03-18 23:44 | DVHPN2 ---
Subjective DOS: 03/18/2025 Patient seen and examined at bedside. Sedated, intubated on mechanical ventilator. Overnight events reviewed. Changes from previous H/P or p: No Changes Eyes: No Pain, No Vision change, No Conjunctivae inflammation, No Eyelid inflammation, No Other, No Redness ENT: No Ear pain, No Ear discharge, No Nose pain, No Nose discharge, No Nose congestion, No Mouth pain, No Mouth swelling, No Throat pain, No Throat swelling, No Other Cardiovascular: No Chest Pain, No Palpitations, No Orthopnea, No Paroxysmal Noc. Dyspnea, No Edema, No Lt Headedness, No Other Respiratory: No Cough, No Dry; Shortness of breath, SOB with excertion; No Wheezing, No Hemoptysis, No Pleuritic Pain, No Sputum; Other (SOB at rest) Gastrointestinal: No Nausea, No Vomiting, No Abdominal Pain, No Diarrhea, No Constipation, No Melena, No Hematochezia, No Other Genitourinary: No Dysuria, No Frequency, No Incontinence, No Hematuria, No Retention, No Other Skin: No Rash, No Lesions, No Jaundice, No Bruising, No Other Objective Vitals Vital Signs Date Time Temp Pulse Resp B/P (MAP) Pulse Ox O2 Delivery O2 Flow Rate FiO2 03/18/25 23:35 108/52 03/18/25 23:00 98.2 56 16 98 208.8 03/18/25 22:00 30 03/18/25 22:00 Mechanical Ventilator+ 03/18/25 09:37 30 Intake/Output Intake and Output 03/18/25 07:00 Intake Total 2877.35 ml Output Total 4000 ml Balance -1122.65 ml Intake Oral 100 ml IV Total 2539.35 ml Tube Feeding 238 ml Output Urine Total 3400 ml Chest Tube Drainage Total 600 ml Exam Gen.: Patient lying in bed in medical ICU. Sedated, intubated on mechanical ventilator. Head: Normocephalic, atraumatic. Eyes: PERRLA. Ears: Normal external anatomy. Throat: Endotracheal tube and orogastric tube in place. Neck: Supple, trachea midline. Chest: Transmitted breath sounds bilaterally. Decreased air entry bilaterally. No wheezing. Bibasilar crackles. Cardiovascular: Positive S1, positive S2. Regular rate and rhythm. Abdomen: Positive bowel sounds in all 4 quadrants. Soft, nontender, nondistended. : Orozco in place. Normal external genitalia. Rectal: Deferred. Skin: Warm, dry. Intact. Extremities: 2+ radial pulses bilaterally. No lower extremity edema. Neuro: Sedated. Medications Current Medications Medications Dose Ordered Sig/Perez Route Start Time Stop Time Status Last Admin Dose Admin Levalbuterol HCl 0.625 mg Q6HR NEB 03/11/25 06:00 03/18/25 23:37 0.625 MG Sodium Chloride 10 ml Q8HR IV 03/11/25 06:00 03/18/25 22:19 10 ML Enoxaparin Sodium 40 mg DAILY SC 03/11/25 10:00 03/18/25 07:28 40 MG Acetaminophen 650 mg Q6HP PRN PO 03/11/25 01:15 03/14/25 05:12 650 MG Midazolam HCl 100 ml @ 1 mls/hr Q24H IV 03/11/25 08:00 03/18/25 13:15 12 MLS/HR Fentanyl Citrate 250 ml @ 2.5 mls/hr Q24H IV 03/11/25 09:30 03/18/25 23:35 20 MLS/HR Norepinephrine Bitartrate 250 ml @ 3.75 mls/hr Q24H IV 03/11/25 09:30 Pantoprazole Sodium 40 mg DAILY IV 03/11/25 10:00 03/18/25 07:28 40 MG Ipratropium Mio 0.5 mg Q6HR NEB 03/11/25 12:00 03/18/25 23:37 0.5 MG Piperacillin Sod/ Tazobactam Sod 100 ml @ 25 mls/hr Q6H IV 03/11/25 20:00 03/18/25 20:21 25 MLS/HR Enteral Nutritional Formula 1,000 ml 30ML/HR GT 03/12/25 15:30 03/17/25 18:24 1,000 ML Methylprednisolone Sodium Succinate 40 mg Q8HR IV 03/14/25 14:00 03/18/25 22:21 40 MG Lactulose 30 ml DAILY PO 03/16/25 10:00 03/18/25 07:28 30 ML Dextrose 1,000 ml @ 50 mls/hr Q20H IV 03/17/25 11:00 03/18/25 05:56 50 MLS/HR Propofol 100 ml @ 2.424 mls/ hr Q24H IV 03/18/25 15:30 03/18/25 21:28 21.816 MLS/HR Laboratory Results Laboratory Tests 03/18/25 03:10 03/18/25 13:05 Chemistry Test 03/18/25 03:10 Calcium Level 9.0 mg/dL (8.7-10.4) Magnesium Level 2.3 mg/dL (1.6-2.6) Urinalysis Test 03/11/25 08:40 03/14/25 23:45 Urine Hyaline Casts Few /lpf (0 - 2) Urine Mucus Few (None Seen) Urine Color Light-yellow (Yellow) Urine Clarity Turbid (Clear) H Urine pH 5.0 (5.0-9.0) Urine Specific [place] 1.022 (1.001-1.035) Urine Protein Trace (Negative) H Urine Ketones Negative (Negative) Urine Blood 2+ /uL (Negative) H Urine Nitrite Negative (Negative) Urine Bilirubin Negative (Negative) Urine Urobilinogen Normal mg/dL (Negative) Urine Leukocyte Esterase Negative /uL (Negative) Urine RBC 202 /hpf (0 - 3) Urine Microscopic WBC 4 /HPF (0-3) H Urine Squamous Epithelial Cells None seen /hpf (<5) Urine Uric Acid Crystals Mod /hpf (None Seen) Urine Bacteria None seen /hpf (None Seen) Urine Creatinine 105.48 mg/dL (30.0-125.0) Urine Protein/Creatinine Ratio 0.41 Urine Sodium 15 mmol/L (40-220) L Urine Glucose Normal mg/dL (Normal) Urine Total Protein 43.7 mg/dL (1-14) H Blood Gas Results Test 03/18/25 07:22 Arterial Blood pH 7.410 (7.350-7.450) FiO2 % 30.0 Microbiology Microbiology Date/Time Source Procedure Growth Status 03/17/25 12:00 Pleural Fluid Gram Stain - Final Resulted 03/17/25 12:00 Pleural Fluid Body Fluid Culture - Preliminary Resulted 03/17/25 11:11 Lung Pending Resulted 03/17/25 11:11 Lung Pending Resulted 03/17/25 11:11 Lung Pending Resulted 03/17/25 11:11 Lung Pending Resulted 03/17/25 11:11 Lung - Final See Separate Report... Resulted 03/17/25 11:11 Bronchial Washings Gram Stain - Final Resulted 03/17/25 11:11 Bronchial Washings Respiratory Culture - Preliminary Resulted 03/11/25 08:40 Urine - [place] Urine Culture - Final Complete 03/11/25 02:41 Blood Blood Culture - Final NO GROWTH AFTER 5 DAYS OF INCUBATION. Complete Assessment/Plan Assessment/Plan Impression: Acute hypoxic respiratory failure On mechanical ventilator Pleural effusion Atelectasis, compressive Septic shock Events: Remains on vent support On AC mode; RR 16, VT 500, PEEP 8, FiO2 30% Continue to taper FIO2 as tolerated Sedated on Propofol, Versed, Fentanyl CT chest notable for bilateral pleural effusions and interstitial opacities. S/p left thoracentesis today with 625 mL yellow fluid drained from left pleural space. Continue antibiotics F/u cultures Continue bronchodilators. IV steroids Accu-Cheks, ISS. Tube feeds for nutritional support Hyperkalemia - pt was given Lasix, insulin, calcium gluconate, bicarb and D50. Plan for redraw. Monitor renal function Monitor electrolytes. Supplement as necessary. Monitor sodium - 144 Monitor ins and outs. Taper sedation as tolerated Plan for CPAP in AM. CPAP with PS 8, PEEP of 5 OK for Precedex if necessary. S/p right thoracentesis on 03/17/25 with 600 mL yellow fluid removed from right pleural space. Follow up pleural fluid cx and cytology Bronchoscopy performed on 03/17/25 with RML BAL obtained, sent for bacterial/fungal/viral + AFB smear and cultures See separate procedure notes for details of both procedures. Labs and imaging reviewed. Rest of plan as noted below. Plan: s/p intubation on mechanical ventilator. On AC mode; RR 16, VT 500, PEEP 8, FiO2 30% Titrate FIO2 to keep O2 saturation above 90%. VAP bundle. Daily ABG and CXR while intubated S/p central line placement for administration of pressors. Pressors as necessary for hemodynamic support Titrate to keep mean arterial pressure greater than 65 mmHg. Continue bronchodilators. Continue antibiotics. Follow up cultures. IV steroids Accu-Cheks, ISS. Monitor renal function Monitor electrolytes. Supplement as necessary. Monitor ins and outs. Maintain euvolemia. GI prophylaxis. DVT prophylaxis. Prognosis: Poor given patient's multiple co-morbidities. Condition: Critical Rest of plan per hospitalist and other consultants. A total of 35 minutes of critical care time was spent reviewing the patient record, examining the patient, making a diagnostic and therapeutic plan, discussing this plan with the medical personnel, following up on diagnostic studies and following the patient for clinical stability excluding any and all procedures. At least 50% of this time was spent in direct, [id number] contact. Thank you, MARIUSZ Montoya, for allowing me to participate in this patient's care. Further recommendations will depend on the patient's clinical course. Please do not hesitate to contact me if you have any questions or concerns. This medical document was created using an electronic medical record system with [employer] dictation system. Although these documentations are being carefully reviewed, there may still be some phonetic and typographical changes. The errors are purely typographical, due to imperfection on the software program, and do not reflect any compromise in the patient's medical care. Plan discussed with: Other (LIZETTE Lawson) My Orders Orders - GUNNER CROWLEY MD Procedure Category Date Status Time Dexmedetomidine Hcl PHA 03/18/25 In Process In D5w (Precedex) 13:00 Cpap Trial For Am ORDERS 03/19/25 Transmitted 07:00 Cpap/Sed Vacation Med ORDERS 03/18/25 Transmitted Weaning 13:24 Propofol (Diprivan) PHA 03/18/25 In Process 15:30 Visit Coding Pulmonary Billing Provider: GUNNER CROWLEY MD Date of Service if different f: Mar 18, 2025 Common Visit Codes: [id number] INP/OBS CARE(HIGH), [id number] CARE 30-74 MIN GUNNER CROWLEY MD Mar 18, 2025 23:44
[2025-03-19] VITALS (85 sets, daily range): BP systolic 107–168; BP diastolic 51–99; PULSE 49–110; RESP 8–31; TEMP 97.3–100.2; O2SAT 91–100
[2025-03-19 04:47] LABS: Hematocrit 36.7 % (41.0-53.0); Hemoglobin 12.4 g/dL (13.5-17.5); Mean Corpuscular Hemoglobin 28.0 pg (28.0-32.0); Mean Corpuscular Volume 82.9 fL (80.0-100.0)
[2025-03-19 05:03] LABS: Albumin 4.2 g/dL (3.2-4.8); Alkaline Phosphatase 66 U/L (46-116); Anion Gap 8 (5-15); BUN/Creatinine Ratio 22.3 (10.0-20.0); Calcium 9.3 mg/dL (8.7-10.4); Chloride 99 mmol/L (98-107); Glucose 99 mg/dL (74-106); Magnesium 2.2 mg/dL (1.6-2.6); Sodium 139 mmol/L (136-145); Total Protein 7.0 g/dL (5.7-8.2)
[2025-03-19 05:04] LABS: Bilirubin, Total 0.3 mg/dL (0.2-1.0)
--- NOTE | 2025-03-19 05:07 | DVH ---
CHEST RADIOGRAPH Indication: on vent Technique: Single frontal view of the chest was obtained Comparison: XY CHEST XRAY 1 VIEW on DOS: 03/18/25 FINDINGS: Lines and Tubes: There is a right central venous catheter with its tip terminating in the right atriu m. The enteric tube courses below the left hemidiaphragm and the tip extends outside the field of vie w. The endotracheal tube terminates 7.4 cm above the galen. Lungs: Improved aeration in the bilateral lung silva. No focal consolidation. Pleura: No effusion. No pneumothorax. Cardiomediastinal contours: Unremarkable Bones: No acute osseous abnormality. IMPRESSION: 1. Similar position of the support lines and tubes. 2. Improved aeration in the bilateral lung silva.
[2025-03-19 05:12] LABS: Alanine Aminotransferase 64 U/L (7-40); Blood Urea Nitrogen 25 mg/dL (9-23); Carbon Dioxide 32 mmol/L (20-31); Potassium 5.1 mmol/L (3.5-5.1)
[2025-03-19 05:17] LABS: Stomatocytes Few; Total Cells Counted 100.0 (100)
[2025-03-19 06:06] LABS: Base Excess 5.7 mmol/L (-2.0-3.0)
[2025-03-19] MEDS: GLYCOPYRROLATE 0.2 MG/ML 1ML VIAL IV ONE (07:21)
[2025-03-19 08:08] LABS: Base Excess 4.7 mmol/L (-2.0-3.0)
[2025-03-19] MEDS: NICOTINE 21MG/24 HR TOPICAL PATCH TD ONE ×2 (16:00→20:51)
--- NOTE | 2025-03-19 17:49 | DVHPNRES ---
Progress Note Date Seen: Mar 19, 2025 Resident Creating Document: MALIA MCKEON RESIDENT Medical Necessity Reason Pt with a Central, PICC or Fol: No Subjective Review of Systems Patient is 19 and male with no past medical history transfer to [place] campus from [facility] for worsening respiratory distress. For past 5-7 days, patient had worsening shortness of breath, prompted visit in 1 month back hospital. 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 Patient did underwent at [facility] CT angio which showed questionable noncardiogenic pulmonary edema, questionable pneumonia, or ARDS. No PE. Past medical history: None Past surgical history none Allergies none Personal history: As per EMR/nursing report, patient has been smoking 10-12 cigarettes per day, intermittent vaping use. No any other recreational drugs use. Home medication: None 03/11/2025: Patient seen in [facility]. Intubated and sedated. Initially patient was in respiratory distress intubated at 8:00 a.m. on 03/11/2025. Urine output 2500 mL last bowel hours. Elevated temperature. No other complaint. 03/12/2025: Patient seen in [facility]. On ventilator. FIow 35%. Off Vasopressors. [id number]. no new complains 03/13/2025:Patient seen in [facility]. On ventilator. FIow 35%. Off Vasopressors. [id number]. no new complains 03/14/2025:Patient seen in [facility]. On ventilator. FIow 35%. Off Vasopressors. [id number]. no new complains. Started on steroids. DC lasix. Monitor kidney function. 03/15/2025: Patient seen in [facility]. On ventilator. Charla 35%. Tmax 99.5. On steroids. NO other complains. 03/16/2025: Patient seen in [facility]. On ventilator. Charla 35%. Tmax 99.5. On steroids. NO other complains. plan for CT chest. NO Bowel movement since 5 days.. 03/17/2025: Patient is continued to be on ventilator, FiO2 35%. Underwent right thoracentesis, drained 600 mL fluids. Underwent bronchoscopy as well. No fever. No bowel movement till now. 03/19/2025: Patient is extubated today. On room air. Plan for swallow test. No any other new complaint. Objective vital signs Vital Sign Date Time Temp Pulse Resp B/P (MAP) Pulse Ox O2 Delivery O2 Flow Rate FiO2 03/19/25 16:00 Room Air* 0 21 03/19/25 15:30 62 14 134/80 (98) 91 03/19/25 14:45 98.6 209.5 Total Intake and Output 03/18/25 03/18/25 03/19/25 15:00 23:00 07:00 Intake Total 947.30 ml 951.528 ml 636.004 ml Output Total 4275 ml 1150 ml Balance 947.30 ml -3323.472 ml -513.996 ml medications Current Medications Medications Dose Ordered Sig/Perez Route Start Time Stop Time Status Last Admin Dose Admin Sodium Chloride 10 ml Q8HR IV 03/11/25 06:00 03/19/25 14:26 10 ML Enoxaparin Sodium 40 mg DAILY SC 03/11/25 10:00 03/19/25 14:26 40 MG Acetaminophen 650 mg Q6HP PRN PO 03/11/25 01:15 03/14/25 05:12 650 MG Pantoprazole Sodium 40 mg DAILY IV 03/11/25 10:00 03/19/25 14:26 40 MG Ipratropium [place] 0.5 mg Q6HR NEB 03/11/25 12:00 03/19/25 12:33 0.5 MG Piperacillin Sod/ Tazobactam Sod 100 ml @ 25 mls/hr Q6H IV 03/11/25 20:00 03/19/25 14:30 25 MLS/HR Lactulose 30 ml DAILY PO 03/16/25 10:00 03/18/25 07:28 30 ML Methylprednisolone Sodium Succinate 40 mg BID IV 03/19/25 22:00 Nicotine 1 patch DAILY TD 03/20/25 10:00 Dextrose/Sodium Chloride 1,000 ml @ 75 mls/hr [id number] IV 03/19/25 16:45 Examination General Appearance: Cooperative. Well developed. Well nourished. NAD Head Exam: Normal inspection Neck Exam: Normal inspection. Non-tender. Normal alignment Pulmonary/Respiratory: Chest non-tender. Clear bilateral breath sounds Cardiovascular/Chest: Regular rate and rhythm. No murmurs. No JVD. Peripheral Pulses: 2+ Radial (R). 2+ Radial (L). 2+ Pedal (R). 2+ Pedal (L) Abdominal Exam: Normal bowel sounds. Soft. Nontender. No hepatospenomegaly. No masses Ankle Exam: Negative ankle edema Lower extremities: Negative lower extremity edema Neuro/Mental Status: A&O x4. Coherent Thoughts/Psych: Normal thought pattern. Appropriate mood and affect. Good judgement and insight Appearance: In no acute distress Skin Exam: Normal inspection. Normal color. Warm. Dry laboratory and microbiology Laboratory Tests 03/19/25 04:38 Test 03/19/25 04:38 Range/Units Serum Glucose 99 74-106 mg/dL Microbiology Date/Time Source Procedure Growth Status 03/18/25 12:00 Pleural Fluid Gram Stain - Final Resulted 03/18/25 12:00 Pleural Fluid Body Fluid Culture - Preliminary Resulted 03/17/25 11:11 Lung Pending Resulted 03/17/25 11:11 Lung Pending Resulted 03/17/25 11:11 Lung Pending Resulted 03/17/25 11:11 Lung Pending Resulted 03/17/25 11:11 Lung - Final See Separate Report... Resulted 03/17/25 11:11 Bronchial Washings Gram Stain - Final Resulted 03/17/25 11:11 Bronchial Washings Respiratory Culture - Preliminary Resulted 03/11/25 08:40 Urine - [place] Urine Culture - Final Complete 03/11/25 02:41 Blood Blood Culture - Final NO GROWTH AFTER 5 DAYS OF INCUBATION. Complete Problem List/Assessment/Plan Problem List/Assessment/Plan Neurology Acute metabolic encephalopathy Sedated -Versed, fentanyl. Respiratory Acute hypoxemic respiratory failure Bilateral pneumonia Gram-positive was negative ? EVALI(E-cigarette or Vaping Use-Associated Lung Injury) ARDS Non cardiogenic Pulmonary edema -IV methyprednisone 40 mg b.i.d. -IV antibiotic with Zosyn -ipratropium bromide -lezama culture: Respiratory, blood culture.:negative till now -Mrsa negative -CT chest(03/17/2025) :[id number] bilateral pleural effusions with severe passive atelectatic changes throughout both lower lobes, nearly completely collapsed.Mixed interstitial and ground-glass opacity throughout both lungs most commonly related to fluid overload. Bilateral pleural effusion -S/P thoracentesis(03/17/2025): 600 ml drained. -S/P broncoscopy (03/17/2025) Cardiology Septic shock due to bilateral pneumonia Sinus tachycardia NSTEMI type 2 due to septic shock -continue management of pneumonia -Off pressors target map greater than 65 -lezama culture: Respiratory, blood culture.:negative till now -ECHO:lvef 50%,possible LVH noted,cannot rule out WMA,rv enlarged,normal atria,no severe valve abnormality noted Nephrologic/acid-base balance RAJENDRA due to VMN: Improved -Cretinine:0.84, 1.39, 2.00 -GFR 127, 74. -Avoid nephrotoxic medications -Continue monitor kidney functions. Metabolic acidosis due to lactic acidosis: Improved -lactic acid 4.2, 2.5, 2.1,1.2 -continue current management, keep nasal diuresis. -continue to monitor kidney function Hypernatremia -improved Current smoker cigarette smoking Current vape user PUD prophylaxis Protonix DVT prophylaxis Lovenox Extubated on 03/19/2025. Intubated on 03/11/2025 Right IJ central line on 03/11/2025, remove line today. Feeding: Swallow evaluation Extubated today. Continue D5W half NS at 75 mL/hour. Keep NPO. Swallow evaluation tomorrow a.m.. Goals of care discussed with father via phone, full code status on 03/11/2025. Discussed greater than 24 hours. Critical care time spent greater than includigg cpap trial was 82 mins, outside the procedure. Plan discussed with Dr Linares. Plan discussed with: Patient, Other (RN) My Orders My Orders Orders - MALIA MCKEON RESIDENT Procedure Category Date Status Time Abg W/ Co-Ox RT 03/19/25 Logged 09:55 Extubate MARIANNE 03/19/25 In Process 08:10 Methylprednisolone PHA 03/19/25 In Process Sod Succ (Solu Medrol 22:00 D5w/Sod Chl 0.45% PHA 03/19/25 In Process (D5w 1/2ns) 16:45 Dietary Evaluation Review Comments: 1) Consider changing TF regimen from Jevity 1.2 @ 30 mL/hr to Vital AF 1.2 @ 60 mL/hr goal rate as tolerated. TF regimen will provide 1728 kcals, 108g Pro, and 1168 mL free H2O per 24 hrs. Goal rate will meet ~ 98% estimated energy needs and ~ 86% estimated protein needs 2) Advance to regular diet when medically feasible, pending ST approval 3) Follow-up with cardiology and pulmonology 4) Continue to monitor I&O, labs, and skin integrity Expected Outcomes/Goals: 1) TF regimen to meet at least 75% estimated daily needs 2) labs to improve 3) diet to advance 4) f/u in 2-3 days Date of Service: Mar 19, 2025 Billing Provider: BRENT ONTIVEROS MD Common Visit Codes: 04428-[id number] CARE 30-74 MIN, [id number] CARE-EACH +30MIN MALIA MCKEON RESIDENT Mar 19, 2025 17:49 BRENT ONTIVEROS MD Mar 20, 2025 12:56
[2025-03-19] MEDS: D5W/SOD CHL 0.45% 1,000 ML IV SCH (18:56)
[2025-03-19] MEDS: methylPREDNISolone SOD SUCC 40 MG/ML VL IV SCH (22:27)
[2025-03-20] VITALS (47 sets, daily range): BP systolic 125–154; BP diastolic 77–101; PULSE 67–125; RESP 11–40; TEMP 97.8–100.9; O2SAT 95–100
[2025-03-20 00:36] LABS: Base Excess 3.6 mmol/L (-2.0-3.0)
[2025-03-20 01:06] LABS: Hemoglobin 15.7 g/dL (13.5-17.5); Mean Corpuscular Volume 81.2 fL (80.0-100.0)
[2025-03-20 01:08] LABS: Hematocrit 45.8 % (41.0-53.0); Mean Corpuscular Hemoglobin 27.9 pg (28.0-32.0)
[2025-03-20 01:17] LABS: Anion Gap 16 (5-15); Carbon Dioxide 23 mmol/L (20-31)
[2025-03-20 01:18] LABS: Calcium 9.5 mg/dL (8.7-10.4)
[2025-03-20 01:23] LABS: BUN/Creatinine Ratio 19.4 (10.0-20.0); Blood Urea Nitrogen 27 mg/dL (9-23); Chloride 96 mmol/L (98-107); Glucose 254 mg/dL (74-106); Potassium 3.2 mmol/L (3.5-5.1); Sodium 135 mmol/L (136-145)
[2025-03-20 02:05] LABS: Total Cells Counted 100.0 (100)
[2025-03-20] MEDS: LORazepam 2MG/ML-1ML VIAL IV PRN (02:07)
[2025-03-20] MEDS: POTASSIUM CHL 20MEQ/100ML 100 ML IV ONE (02:07)
[2025-03-20] MEDS: LORazepam 2MG/ML-1ML VIAL ONE (02:49)
[2025-03-20] MEDS: SODIUM CHLORIDE 0.9% 1,000 ML IV SCH (10:08)
[2025-03-20] MEDS: NICOTINE 21MG/24 HR TOPICAL PATCH TD SCH (10:10)
[2025-03-20] MEDS: OLANZapine 5 MG TAB PO ONE ×2 (13:41→22:36)
[2025-03-20] MEDS: PIPERACILLIN-TAZOB 3.375GM 100 ML IV SCH (15:35)
--- NOTE | 2025-03-20 15:59 | DVHPNRES ---
Progress Note Date Seen: Mar 20, 2025 Resident Creating Document: MALIA MCKEON RESIDENT Medical Necessity Reason Pt with a Central, PICC or Fol: No Subjective Review of Systems Patient is 19 and male with no past medical history transfer to [facility] from [facility] for worsening respiratory distress. For past 5-7 days, patient had worsening shortness of breath, prompted visit in 1 month back hospital. Is when patient was transferred to emergency department in [facility], the patient was started on BiPAP, rn telephonic on 03/11/2025, the patient started breathing 30s to 40s, for respiratory distress, patient was intubated brought in for supportive mechanical ventilation. Patient did underwent at [facility] CT angio which showed questionable noncardiogenic pulmonary edema, questionable pneumonia, or ARDS. No PE. Past medical history: None Past surgical history none Allergies none Personal history: As per EMR/nursing report, patient has been smoking 10-12 cigarettes per day, intermittent vaping use. No any other recreational drugs use. Home medication: None 03/11/2025: Patient seen in [facility]. Intubated and sedated. Initially patient was in respiratory distress intubated at 8:00 a.m. on 03/11/2025. Urine output 2500 mL last bowel hours. Elevated temperature. No other complaint. 03/12/2025: Patient seen in [facility]. On ventilator. FIow 35%. Off Vasopressors. tem98. no new complains 03/13/2025:Patient seen in [facility]. On ventilator. FIow 35%. Off Vasopressors. [id number]. no new complains 03/14/2025:Patient seen in [facility]. On ventilator. FIow 35%. Off Vasopressors. [id number]. no new complains. Started on steroids. DC lasix. Monitor kidney function. 03/15/2025: Patient seen in [facility]. On ventilator. Charla 35%. Tmax 99.5. On steroids. NO other complains. 03/16/2025: Patient seen in [facility]. On ventilator. Charla 35%. Tmax 99.5. On steroids. NO other complains. plan for CT chest. NO Bowel movement since 5 days.. 03/17/2025: Patient is continued to be on ventilator, FiO2 35%. Underwent right thoracentesis, drained 600 mL fluids. Underwent bronchoscopy as well. No fever. No bowel movement till now. 03/19/2025: Patient is extubated today. On room air. Plan for swallow test. No any other new complaint. 03/20/2025: patient is more alert still more agitated . on room air, tolerating diet. Objective vital signs Vital Sign Date Time Temp Pulse Resp B/P (MAP) Pulse Ox O2 Delivery O2 Flow Rate FiO2 03/20/25 12:00 99.9 99 25 136/94 (108) 99 99.9 03/20/25 10:00 Room Air* 0 21 Total Intake and Output 03/19/25 03/19/25 03/20/25 15:00 23:00 07:00 Intake Total 6 ml 475 ml 525 ml Output Total 1250 ml 950 ml Balance 6 ml -775 ml -425 ml medications Current Medications Medications Dose Ordered Sig/Perez Route Start Time Stop Time Status Last Admin Dose Admin Sodium Chloride 10 ml Q8HR IV 03/11/25 06:00 03/20/25 13:41 10 ML Enoxaparin Sodium 40 mg DAILY SC 03/11/25 10:00 03/20/25 10:08 40 MG Acetaminophen 650 mg Q6HP PRN PO 03/11/25 01:15 03/14/25 05:12 650 MG Pantoprazole Sodium 40 mg DAILY IV 03/11/25 10:00 03/20/25 10:08 40 MG Ipratropium [place] 0.5 mg Q6HR NEB 03/11/25 12:00 03/20/25 11:49 0.5 MG Lactulose 30 ml DAILY PO 03/16/25 10:00 03/18/25 07:28 30 ML Nicotine 1 patch DAILY TD 03/20/25 10:00 03/20/25 10:10 1 PATCH Sodium Chloride 1,000 ml @ 75 mls/hr [id number] IV 03/20/25 08:15 03/20/25 10:08 75 MLS/HR Methylprednisolone Sodium Succinate 40 mg DAILY IV 03/21/25 10:00 Piperacillin Sod/ Tazobactam Sod 100 ml @ 25 mls/hr Q8H IV 03/20/25 16:00 03/20/25 15:35 25 MLS/HR Olanzapine 5 mg DAILY PO 03/21/25 10:00 Examination General Appearance: Cooperative. Well developed. Well nourished. NAD Head Exam: Normal inspection Neck Exam: Normal inspection. Non-tender. Normal alignment Pulmonary/Respiratory: Chest non-tender. Clear bilateral breath sounds Cardiovascular/Chest: Regular rate and rhythm. No murmurs. No JVD. Peripheral Pulses: 2+ Radial (R). 2+ Radial (L). 2+ Pedal (R). 2+ Pedal (L) Abdominal Exam: Normal bowel sounds. Soft. Nontender. No hepatospenomegaly. No masses Ankle Exam: Negative ankle edema Lower extremities: Negative lower extremity edema Neuro/Mental Status: A&O x4. Coherent Thoughts/Psych: Normal thought pattern. Appropriate mood and affect. Good judgement and insight Appearance: In no acute distress Skin Exam: Normal inspection. Normal color. Warm. Dry laboratory and microbiology Laboratory Tests 03/20/25 00:40 Test 03/20/25 00:40 Range/Units Serum Glucose 254 #H 74-106 mg/dL Microbiology Date/Time Source Procedure Growth Status 03/18/25 12:00 Pleural Fluid Gram Stain - Final Resulted 03/18/25 12:00 Pleural Fluid Body Fluid Culture - Preliminary Resulted 03/17/25 11:11 Lung Pending Resulted 03/17/25 11:11 Lung Pending Resulted 03/17/25 11:11 Lung Pending Resulted 03/17/25 11:11 Lung Pending Resulted 03/17/25 11:11 Lung - Final See Separate Report... Resulted 03/17/25 11:11 Bronchial Washings Gram Stain - Final Complete 03/17/25 11:11 Bronchial Washings Respiratory Culture - Final Complete 03/11/25 08:40 Urine - [place] Urine Culture - Final Complete 03/11/25 02:41 Blood Blood Culture - Final NO GROWTH AFTER 5 DAYS OF INCUBATION. Complete Problem List/Assessment/Plan Problem List/Assessment/Plan Neurology Acute metabolic encephalopathy -Stable Respiratory Acute hypoxemic respiratory failure Bilateral pneumonia Gram-positive was negative ? EVALI(E-cigarette or Vaping Use-Associated Lung Injury) ARDS Non cardiogenic Pulmonary edema -IV methyprednisone 40 mg daily. Plan for tapering dose. -IV antibiotic with Zosyn -ipratropium bromide -lezama culture: Respiratory, blood culture.:negative till now -Mrsa negative -CT chest(03/17/2025) :[id number] bilateral pleural effusions with severe passive atelectatic changes throughout both lower lobes, nearly completely collapsed.Mixed interstitial and ground-glass opacity throughout both lungs most commonly related to fluid overload. Bilateral pleural effusion -S/P Bilateral thoracentesis(03/17 and 03/18) -S/P broncoscopy (03/17/2025) Cardiology Septic shock due to bilateral pneumonia Sinus tachycardia NSTEMI type 2 due to septic shock -continue management of pneumonia with zosyn -Off pressors target map greater than 65 -lezama culture: Respiratory, blood culture.:negative till now -ECHO:lvef 50%,possible LVH noted,cannot rule out WMA,rv enlarged,normal atria,no severe valve abnormality noted Nephrologic/acid-base balance RAJENDRA due to VMN -NS 75ml /hr -Cretinine:0.84, 1.39, 2.00 -GFR 127, 74. -Avoid nephrotoxic medications -Continue monitor kidney functions. Metabolic acidosis due to lactic acidosis: Improved -lactic acid 4.2, 2.5, 2.1,1.2 -continue current management, keep nasal diuresis. -continue to monitor kidney function Hypernatremia -improved Current smoker cigarette smoking Current vape user PUD prophylaxis Protonix DVT prophylaxis Lovenox Extubated on 03/19/2025. Intubated on 03/11/2025 Right IJ central line on 03/11/2025, remove line today. Feeding: regular diet Goals of care discussed with father via phone, full code status on 03/11/2025. Discussed greater than 24 hours. Critical care time spent 66 min, excluding procedure. Discussed plan with family at bed side and explain current clinical condition. Plan discussed with Dr Linares. Plan discussed with: Patient, Other (Mother and COPY OPERATOR) My Orders My Orders Orders - MALIA MCKEON RESIDENT Procedure Category Date Status Time Chest Xray 1 View XY 03/20/25 Taken 07:00 Free T4 (Free LAB 03/20/25 In Process Thyroxine) 08:08 Sodium Chloride 0.9% PHA 03/20/25 In Process 08:15 * Swallow Request ST 03/20/25 Transmitted 08:11 Soft Diet DIET 03/20/25 Transmitted Breakfast Methylprednisolone PHA 03/21/25 In Process Sod Succ (Solu Medrol 10:00 Dietary Evaluation Review Comments: 1) Consider changing TF regimen from Jevity 1.2 @ 30 mL/hr to Vital AF 1.2 @ 60 mL/hr goal rate as tolerated. TF regimen will provide 1728 kcals, 108g Pro, and 1168 mL free H2O per 24 hrs. Goal rate will meet ~ 98% estimated energy needs and ~ 86% estimated protein needs 2) Advance to regular diet when medically feasible, pending ST approval 3) Follow-up with cardiology and pulmonology 4) Continue to monitor I&O, labs, and skin integrity Expected Outcomes/Goals: 1) TF regimen to meet at least 75% estimated daily needs 2) labs to improve 3) diet to advance 4) f/u in 2-3 days Date of Service: Mar 20, 2025 Billing Provider: BRENT ONTIVEROS MD Common Visit Codes: [id number] CARE 30-74 MIN MALIA MCKEON RESIDENT Mar 20, 2025 15:59 BRENT ONTIVEROS MD Mar 21, 2025 12:53
[2025-03-20 16:07] LABS: Glucose, Body Fluid 103.0 mg/dL (.); LD, Body Fluid 195.0 IU/L (.)
[2025-03-20 16:07] LABS: Glucose, Body Fluid 120.0 mg/dL (.); LD, Body Fluid 218.0 IU/L (.)
[2025-03-20] MEDS ORDERED: ACETAMINOPHEN 325 MG TAB PO PRN (23:45)
[2025-03-21] VITALS (16 sets, daily range): BP systolic 117–155; BP diastolic 76–89; PULSE 81–124; RESP 16–22; TEMP 97.6–99.6; O2SAT 94–99
[2025-03-21] MEDS: SODIUM CHLORIDE 0.9% 1,000 ML IV SCH (00:04)
[2025-03-21] MEDS: PIPERACILLIN-TAZOB 3.375GM 100 ML IV SCH (00:04)
[2025-03-21 06:21] LABS: Hemoglobin 14.8 g/dL (13.5-17.5)
[2025-03-21 06:25] LABS: Hematocrit 42.7 % (41.0-53.0); Mean Corpuscular Hemoglobin 27.8 pg (28.0-32.0); Mean Corpuscular Volume 80.3 fL (80.0-100.0)
[2025-03-21 06:37] LABS: Chloride 106 mmol/L (98-107); Sodium 139 mmol/L (136-145)
[2025-03-21 06:38] LABS: Anion Gap 12 (5-15); Carbon Dioxide 21 mmol/L (20-31)
[2025-03-21 06:39] LABS: Calcium 9.3 mg/dL (8.7-10.4)
[2025-03-21] MEDS: IPRATROPIUM BROM 0.5 MG/2.5ML INH SOL ONE (06:41)
[2025-03-21 06:44] LABS: BUN/Creatinine Ratio 21.7 (10.0-20.0); Glucose 94 mg/dL (74-106)
[2025-03-21 06:49] LABS: Blood Urea Nitrogen 25 mg/dL (9-23); Potassium 3.4 mmol/L (3.5-5.1)
[2025-03-21 08:33] LABS: Total Cells Counted 100.0 (100)
[2025-03-21] MEDS ORDERED: ACETAMINOPHEN 325 MG TAB PO PRN (08:45)
[2025-03-21] MEDS: PANTOPRAZOLE 40 MG/10 ML VIAL INJ IV SCH (09:52)
[2025-03-21] MEDS: methylPREDNISolone SOD SUCC 40 MG/ML VL IV SCH (09:52)
[2025-03-21] MEDS: ENOXAPARIN SOD 40 MG/0.4 ML SYRINGE SC SCH (09:52)
[2025-03-21] MEDS: OLANZapine 5 MG TAB PO SCH (09:53)
[2025-03-21] MEDS: NICOTINE 21MG/24 HR TOPICAL PATCH TD SCH (09:53)
[2025-03-21] MEDS: POTASSIUM CHL 20 Meq TABLET PO ONE (09:53)
[2025-03-21] MEDS: LACTULOSE 20Gm/30ML SOLN PO SCH (09:53)
[2025-03-21] MEDS ORDERED: OLANZapine 5 MG TAB PO SCH (10:00)
[2025-03-21] MEDS ORDERED: methylPREDNISolone SOD SUCC 40 MG/ML VL IV SCH (10:00)
[2025-03-21] MEDS: IPRATROPIUM BROM 0.5 MG/2.5ML INH SOL NEB SCH (12:49)
--- NOTE | 2025-03-21 13:18 | DVHINCON2 ---
Date of Service if different f: Mar 21, 2025 Consultation ([facility]) Consulting Physician: NORIS GUERRERO MD Labs Laboratory Tests Test 03/11/25 00:42 03/11/25 00:43 03/11/25 02:24 03/11/25 03:25 Large Platelets Few Hemoglobin A1c 5.0 % A1C (<5.7) B-Type Natriuretic Peptide 51.93 pg/mL (0-100) Bl Gas Inspiratory/Expiratory Ratio 1:3 Blood Gas Spontaneous Tidal Volume 675 Blood Gas EPAP 5 Blood Gas IPAP 12 Troponin I High Sensitivity 36 ng/L (</=54) Test 03/11/25 08:40 03/11/25 11:24 03/12/25 03:00 03/14/25 00:45 Urine Hyaline Casts Few /lpf (0 - 2) Urine Mucus Few (None Seen) Urine Opiates Screen Neg (NEGATIVE) Urine Fentanyl Screen Neg (NEGATIVE) Urine Barbiturates Screen Neg (NEGATIVE) Urine Phencyclidine Screen Neg (NEGATIVE) Urine Amphetamines Screen Neg (NEGATIVE) Urine Benzodiazepines Screen Neg (NEGATIVE) Urine Cocaine Screen Neg (NEGATIVE) Urine Cannabinoids Screen Neg (NEGATIVE) Influenza Type A Antigen Negative (Negative) Influenza Type B Antigen Negative (Negative) SARS-CoV-2 Antigen (Rapid) Negative (NEGATIVE) Lactic Acid Level 1.6 mmol/L (0.4-2.0) Vancomycin Level Trough 19.0 ug/mL (5-10) Test 03/14/25 23:45 03/15/25 03:00 03/18/25 06:15 03/18/25 12:00 Urine Color Light-yellow (Yellow) Urine Clarity Turbid (Clear) Urine pH 5.0 (5.0-9.0) Urine Specific [place] 1.022 (1.001-1.035) Urine Protein Trace (Negative) Urine Ketones Negative (Negative) Urine Blood 2+ /uL (Negative) Urine Nitrite Negative (Negative) Urine Bilirubin Negative (Negative) Urine Urobilinogen Normal mg/dL (Negative) Urine Leukocyte Esterase Negative /uL (Negative) Urine RBC 202 /hpf (0 - 3) Urine Microscopic WBC 4 /HPF (0-3) Urine Squamous Epithelial Cells None seen /hpf (<5) Urine Uric Acid Crystals Mod /hpf (None Seen) Urine Bacteria None seen /hpf (None Seen) Urine Creatinine 105.48 mg/dL (30.0-125.0) Urine Protein/Creatinine Ratio 0.41 Urine Sodium 15 mmol/L (40-220) Urine Glucose Normal mg/dL (Normal) Urine Total Protein 43.7 mg/dL (1-14) Eosinophils (%) (Auto) 5.3 % (0.0-7.0) Eosinophils # (Auto) 0.6 10 ^3/uL (0-0.8) Basophils # (Auto) 0 10 ^3/uL (0-0.2) Nucleated Red Blood Cells 0.0 % Random Vancomycin Level 13.3 ug/mL (5-10) Bedside Glucose 115 mg/dl (70-106) Body Fluid Source Pleural fluid Body Fluid pH 8.0 Body Fluid WBC (Manual) 493 CUMM (0-200) Body Fluid RBC (Manual) 201 CUMM (0-2000) Body Fluid Mononuclear Cells 63 % Body Fluid Polymorphonuclear Cells 37 % (0-25) Body Fluid Glucose 103 mg/dL (.) Body Fluid Total Protein 3.2 g/dL (.) Body Fluid Lactate Dehydrogenase 195 IU/L (.) Test 03/19/25 04:38 03/19/25 05:58 03/19/25 07:50 03/20/25 00:26 Stomatocytes Few Magnesium Level 2.2 mg/dL (1.6-2.6) Total Bilirubin 0.3 mg/dL (0.2-1.0) Aspartate Amino Transf (AST/SGOT) 37 U/L (13-40) Alanine Aminotransferase (ALT/SGPT) 64 U/L (7-40) Alkaline Phosphatase 66 U/L (46-116) Total Protein 7.0 g/dL (5.7-8.2) Albumin 4.2 g/dL (3.2-4.8) Blood Gas Set Respiration Rate 16.0 Blood Gas Tidal Volume 500.0 Blood Gas Spontaneous Rate 20 Blood Gas Pressure Support 7 Blood Gas PEEP or CPAP 5.0 Blood Gas Specimen Type Arterial Blood Gas Sample Site Right radial Blood Gas Patient Temperature 37.0 Arterial Blood Date Drawn [id number] Arterial Blood pH 7.565 (7.350-7.450) Arterial Blood Partial Pressure CO2 27.6 mmHg (35.0-48.0) Arterial Blood Partial Pressure O2 66.2 mmHg (83.0-108.0) Arterial Blood HCO3 24.4 mmol/L (21.0-28.0) Arterial Blood Oxygen Saturation 94.1 % (94.0-98.0) Arterial Blood Base Excess 3.6 mmol/L (-2.0-3.0) Arterial Blood Oxyhemoglobin 92.4 % (94.0-98.0) Arterial Blood Carboxyhemoglobin 1.4 % (0.5-1.5) Arterial Blood Methemoglobin 0.4 % (0.0-1.5) Javier Test Modified Blood Gas Total Hemoglobin 15.80 g/dL (13.5-17.5) Blood Gas Modality Room air FiO2 % 21.0 Blood Gas Critical Value Read Back Yes Blood Gas Notified Whom Md. beckie che Blood Gas Notified Time [id number] Blood Gas Notified By Rt, don delarosa Test 03/20/25 00:40 03/20/25 09:04 03/21/25 05:40 Ammonia < 10 umol/L (11-32) Thyroid Stimulating Hormone (TSH) 4.91 uIU/mL (0.55-4.78) Free Thyroxine (T4) Calculated 1.59 ng/dL (0.89-1.76) White Blood Count 24.9 10^3/uL (4.4-10.8) Red Blood Count 5.33 10^6/uL (4.5-5.90) Hemoglobin 14.8 g/dL (13.5-17.5) Hematocrit 42.7 % (41.0-53.0) Mean Corpuscular Volume 80.3 fL (80.0-100.0) Mean Corpuscular Hemoglobin 27.8 pg (28.0-32.0) Mean Corpuscular Hemoglobin Concent 34.6 g/dL (32.0-36.0) Red Cell Distribution Width 13.6 % (11.8-14.3) Platelet Count 498 10^3/uL (140-450) Mean Platelet Volume 6.9 fL (6.9-10.8) Neutrophils (%) (Auto) % (37.0-80.0) Lymphocytes (%) (Auto) % (10.0-50.0) Monocytes (%) (Auto) % (0.0-12.0) Basophils (%) (Auto) % (0.0-2.0) Neutrophils # (Auto) 10 ^3/uL (1.6-8.6) Lymphocytes # (Auto) 10 ^3/uL (0.4-5.4) Monocytes # (Auto) 10 ^3/uL (0-1.3) Differential Total Cells Counted 100.0 (100) Neutrophils % (Manual) 73 (37.0-80.0) Band Neutrophils % (Manual) 0 Lymphocytes % (Manual) 5 (10.0-50.0) Monocytes % (Manual) 4 (0-12) Eosinophils % (Manual) 18 (0-7) Basophils % (Manual) 0 (0.0-2.0) Metamyelocytes % (manual) 0 Myelocytes % (Manual) 0 Promyelocytes % (Manual) 0 Blast Cells % (Manual) 0 Reactive Lymphocytes 0 Platelet Estimate Increased Sodium Level 139 mmol/L (136-145) Potassium Level 3.4 mmol/L (3.5-5.1) Chloride Level 106 mmol/L (98-107) Carbon Dioxide Level 21 mmol/L (20-31) Anion Gap 12 (5-15) Blood Urea Nitrogen 25 mg/dL (9-23) Creatinine 1.15 mg/dL (0.700-1.30) Glomerular Filtration Rate Calc 93 mL/min (>90) BUN/Creatinine Ratio 21.7 (10.0-20.0) Serum Glucose 94 mg/dL (74-106) Calcium Level 9.3 mg/dL (8.7-10.4) Microbiology Date/Time Source Procedure Growth Status 03/18/25 12:00 Pleural Fluid Gram Stain - Final Resulted 03/18/25 12:00 Pleural Fluid Body Fluid Culture - Preliminary Resulted 03/17/25 11:11 Lung Pending Resulted 03/17/25 11:11 Lung Pending Resulted 03/17/25 11:11 Lung Pending Resulted 03/17/25 11:11 Lung Pending Resulted 03/17/25 11:11 Lung - Final See Separate Report... Resulted 03/17/25 11:11 Bronchial Washings Gram Stain - Final Complete 03/17/25 11:11 Bronchial Washings Respiratory Culture - Final Complete 03/11/25 08:40 Urine - [place] Urine Culture - Final Complete 03/11/25 02:41 Blood Blood Culture - Final NO GROWTH AFTER 5 DAYS OF INCUBATION. Complete Appearance: Stated age, Disheveled Psychomotor activity: Lethargic, Retarted Behavioral: [place], Withdrawn Eye contact: Avoids Speech: Confused, Mumbled Affect: Blunted Mood: Depressed Thought processes: Tangential, Disorganized Thought content: Paranoid, Hallucinations (auditory) Suicidal ideations: Present (active) Homicidal ideations: Present (active) Orientation: Person, Confused Memory intact: Poor Intellect: Average Abstractability: Marginal Concentration: Poor Attention: Poor Judgement: Poor Insight: Poor Vitals Vital Signs Date Time Temp Pulse Resp B/P (MAP) Pulse Ox O2 Delivery O2 Flow Rate FiO2 03/21/25 10:11 96 Room Air* 0 21 03/21/25 06:42 102 16 03/21/25 05:00 99.0 144/83 (103) 99.0 Current medications Current Medications Medications Dose Ordered Sig/Perez Route Start Time Stop Time Status Last Admin Dose Admin Sodium Chloride 1,000 ml @ 75 mls/hr [id number] IV 03/20/25 23:45 03/21/25 00:04 75 MLS/HR Piperacillin Sod/ Tazobactam Sod 100 ml @ 25 mls/hr Q8H IV 03/20/25 23:45 03/21/25 08:36 25 MLS/HR Sodium Chloride 10 ml Q8HR IV 03/21/25 14:00 Enoxaparin Sodium 40 mg DAILY SC 03/21/25 10:00 03/21/25 09:52 40 MG Pantoprazole Sodium 40 mg DAILY IV 03/21/25 10:00 03/21/25 09:52 40 MG Ipratropium Wirt 0.5 mg Q6HR NEB 03/21/25 12:00 Lactulose 30 ml DAILY PO 03/21/25 10:00 03/21/25 09:53 30 ML Nicotine 1 patch DAILY TD 03/21/25 10:00 03/21/25 09:53 1 PATCH Methylprednisolone Sodium Succinate 40 mg DAILY IV 03/21/25 10:00 03/21/25 09:52 40 MG Olanzapine 5 mg DAILY PO 03/21/25 10:00 03/21/25 09:53 5 MG Acetaminophen 650 mg Q6HP PRN PO 03/21/25 08:45 Treatment plan discussed: With staff, Family Medication adjusted: Yes Diagnosis: unspecified psychosis Plan : Patient is visibly psychotic as well as reporting suicidal/homicidal ideation Recommend tarasoff notification to Georgette as he has been visiting patient here in the hospital. Patient is currently receiving Olanzapine 5mg. recommend to increase to 5mg bid or 5mg qam, 10mg qhs, max daily use is 30mg. Recommend 5150hold for DTS/DTO and transfer to psychiatric facility after medical clearance Continue 1:1 sitter for safety. History of Present Illness Reason for Consult : New onset psychosis HPI : This is a 19-year-old male presented here from [facility] for acute respiratory distress on 03/11/25. Patient had worsening SOB requiring intubation. patient is extubated now Patient is evaluated via telepsychiatry. On exam, patient is lying in bed bed, visibly distracted, preoccupied with a lot of delays in answering questions. He reports hearing hallucinations of beeping sound and "i need more people." when asked how long he had the hallucinations, replies, " a long time." Asked what year did it start, only staring. He is able to report current year as 2024. He also reports seeing smoke now. He was distracted and kept repeating, " my apologies ma'am". When asked about suicidal thoughts, replies, "maybe myself little." He identifies plan as " I would do a line of nicotine" "sometimes, i feel like ripping my chest out." When asked about homicidal ideation, he replies, yes. He identifies his "platoon Georgette" as someone he wishes to harm because "he's an asshole." He does not identify how he wishes to harm him when asked. Nurse reports the Georgette has visited him here in the hospital. Client Experience Consultant asked about his family and any social support, he replies that all his family had . Nurse later informed blog writer that family was alive and mother has been visiting him here often. His father lives in [place] and sister, all alive. Called mother, Radha who later came to visit patient at bedside. Mom reports patient has been in the since graduating high school, about 3.5 years ago. She reports this is not my son, i have never seen him like this. She denies any prior mental diagnoses or treatment. She reports while in the , she spoke to him often and last spoke to him before his last training. Past Psychiatric History : He denies prior suicide attempts. When asked about past psych hospitals, reports, I think so and that he is in one now. Past Medical History : He denies Social History [place] Mother denies any family history of psychiatric problems or trauma history. No known history of drugs or alcohol use. Patient was using nicotine and vaping. His urine drug screen is n egative. [facility] [place] HANYGURUJackson Houston DNP Mar 21, 2025 13:18
--- NOTE | 2025-03-21 15:38 | DVHDSRES ---
Discharge Summary Date of Admission Resident Creating Document: MALIA MCKEON RESIDENT Mar 11, 2025 at 01:14 Date of Discharge: Mar 21, 2025 Admitting Diagnosis Acute respiratory distress Labs/Diagnostic Data: Laboratory Results Test 03/21/25 05:40 03/20/25 09:04 03/20/25 00:40 03/20/25 00:26 White Blood Count 24.9 10^3/uL (4.4-10.8) Red Blood Count 5.33 10^6/uL (4.5-5.90) Hemoglobin 14.8 g/dL (13.5-17.5) Hematocrit 42.7 % (41.0-53.0) Mean Corpuscular Volume 80.3 fL (80.0-100.0) Mean Corpuscular Hemoglobin 27.8 pg (28.0-32.0) Mean Corpuscular Hemoglobin Concent 34.6 g/dL (32.0-36.0) Red Cell Distribution Width 13.6 % (11.8-14.3) Platelet Count 498 10^3/uL (140-450) Mean Platelet Volume 6.9 fL (6.9-10.8) Neutrophils (%) (Auto) % (37.0-80.0) Lymphocytes (%) (Auto) % (10.0-50.0) Monocytes (%) (Auto) % (0.0-12.0) Basophils (%) (Auto) % (0.0-2.0) Neutrophils # (Auto) 10 ^3/uL (1.6-8.6) Lymphocytes # (Auto) 10 ^3/uL (0.4-5.4) Monocytes # (Auto) 10 ^3/uL (0-1.3) Differential Total Cells Counted 100.0 (100) Neutrophils % (Manual) 73 (37.0-80.0) Band Neutrophils % (Manual) 0 Lymphocytes % (Manual) 5 (10.0-50.0) Monocytes % (Manual) 4 (0-12) Eosinophils % (Manual) 18 (0-7) Basophils % (Manual) 0 (0.0-2.0) Metamyelocytes % (manual) 0 Myelocytes % (Manual) 0 Promyelocytes % (Manual) 0 Blast Cells % (Manual) 0 Reactive Lymphocytes 0 Platelet Estimate Increased Sodium Level 139 mmol/L (136-145) Potassium Level 3.4 mmol/L (3.5-5.1) Chloride Level 106 mmol/L (98-107) Carbon Dioxide Level 21 mmol/L (20-31) Anion Gap 12 (5-15) Blood Urea Nitrogen 25 mg/dL (9-23) Creatinine 1.15 mg/dL (0.700-1.30) Glomerular Filtration Rate Calc 93 mL/min (>90) BUN/Creatinine Ratio 21.7 (10.0-20.0) Serum Glucose 94 mg/dL (74-106) Calcium Level 9.3 mg/dL (8.7-10.4) Free Thyroxine (T4) Calculated 1.59 ng/dL (0.89-1.76) Ammonia < 10 umol/L (11-32) Thyroid Stimulating Hormone (TSH) 4.91 uIU/mL (0.55-4.78) Blood Gas Specimen Type Arterial Blood Gas Sample Site Right radial Blood Gas Patient Temperature 37.0 Arterial Blood Date Drawn [id number] Arterial Blood pH 7.565 (7.350-7.450) Arterial Blood Partial Pressure CO2 27.6 mmHg (35.0-48.0) Arterial Blood Partial Pressure O2 66.2 mmHg (83.0-108.0) Arterial Blood HCO3 24.4 mmol/L (21.0-28.0) Arterial Blood Oxygen Saturation 94.1 % (94.0-98.0) Arterial Blood Base Excess 3.6 mmol/L (-2.0-3.0) Arterial Blood Oxyhemoglobin 92.4 % (94.0-98.0) Arterial Blood Carboxyhemoglobin 1.4 % (0.5-1.5) Arterial Blood Methemoglobin 0.4 % (0.0-1.5) Javier Test Modified Blood Gas Total Hemoglobin 15.80 g/dL (13.5-17.5) Blood Gas Modality Room air FiO2 % 21.0 Blood Gas Critical Value Read Back Yes Blood Gas Notified Whom Md. beckie che Blood Gas Notified Time [id number] Blood Gas Notified By don Cantu 03/19/25 07:50 03/19/25 05:58 03/19/25 04:38 03/18/25 12:00 Blood Gas Spontaneous Rate 20 Blood Gas Pressure Support 7 Blood Gas PEEP or CPAP 5.0 Blood Gas Set Respiration Rate 16.0 Blood Gas Tidal Volume 500.0 Stomatocytes Few Magnesium Level 2.2 mg/dL (1.6-2.6) Total Bilirubin 0.3 mg/dL (0.2-1.0) Aspartate Amino Transferase (AST) 37 U/L (13-40) Alanine Aminotransferase (ALT) 64 U/L (7-40) Alkaline Phosphatase 66 U/L (46-116) Total Protein 7.0 g/dL (5.7-8.2) Albumin 4.2 g/dL (3.2-4.8) Body Fluid Source Pleural fluid Body Fluid pH 8.0 Body Fluid WBC (Manual) 493 CUMM (0-200) Body Fluid RBC (Manual) 201 CUMM (0-2000) Body Fluid Mononuclear Cells 63 % Body Fluid Polymorphonuclear Cells 37 % (0-25) Body Fluid Glucose 103 mg/dL (.) Body Fluid Total Protein 3.2 g/dL (.) Body Fluid Lactate Dehydrogenase 195 IU/L (.) Test 03/18/25 06:15 03/15/25 03:00 03/14/25 23:45 03/14/25 00:45 POC Glucose 115 mg/dl (70-106) Eosinophils (%) (Auto) 5.3 % (0.0-7.0) Eosinophils # (Auto) 0.6 10 ^3/uL (0-0.8) Basophils # (Auto) 0 10 ^3/uL (0-0.2) Nucleated Red Blood Cells 0.0 % Random Vancomycin Level 13.3 ug/mL (5-10) Urine Color Light-yellow (Yellow) Urine Clarity Turbid (Clear) Urine pH 5.0 (5.0-9.0) Urine Specific [place] 1.022 (1.001-1.035) Urine Protein Trace (Negative) Urine Ketones Negative (Negative) Urine Blood 2+ /uL (Negative) Urine Nitrite Negative (Negative) Urine Bilirubin Negative (Negative) Urine Urobilinogen Normal mg/dL (Negative) Urine Leukocyte Esterase Negative /uL (Negative) Urine RBC 202 /hpf (0 - 3) Urine Microscopic WBC 4 /HPF (0-3) Urine Squamous Epithelial Cells None seen /hpf (<5) Urine Uric Acid Crystals Mod /hpf (None Seen) Urine Bacteria None seen /hpf (None Seen) Urine Creatinine 105.48 mg/dL (30.0-125.0) Urine Protein/Creatinine Ratio 0.41 Urine Sodium 15 mmol/L (40-220) Urine Glucose Normal mg/dL (Normal) Urine Total Protein 43.7 mg/dL (1-14) Vancomycin Level Trough 19.0 ug/mL (5-10) Test 03/12/25 03:00 03/11/25 11:24 03/11/25 08:40 03/11/25 03:25 Lactic Acid Level 1.6 mmol/L (0.4-2.0) Influenza Type A Antigen Negative (Negative) Influenza Type B Antigen Negative (Negative) SARS-CoV-2 Antigen (Rapid) Negative (NEGATIVE) Urine Hyaline Casts Few /lpf (0 - 2) Urine Mucus Few (None Seen) Urine Opiates Screen Neg (NEGATIVE) Urine Fentanyl Screen Neg (NEGATIVE) Urine Barbiturates Screen Neg (NEGATIVE) Urine Phencyclidine Screen Neg (NEGATIVE) Urine Amphetamines Screen Neg (NEGATIVE) Urine Benzodiazepines Screen Neg (NEGATIVE) Urine Cocaine Screen Neg (NEGATIVE) Urine Cannabinoids Screen Neg (NEGATIVE) Troponin I High Sensitivity 36 ng/L (</=54) Test 03/11/25 02:24 03/11/25 00:43 03/11/25 00:42 Blood Gas Spontaneous Tidal Volume 675 Blood Gas EPAP 5 Blood Gas IPAP 12 Bl Gas Inspiratory/Expiratory Ratio 1:3 Large Platelets Few Hemoglobin A1c 5.0 % A1C (<5.7) B-Type Natriuretic Peptide 51.93 pg/mL (0-100) Other Laboratory Tests 03/21/25 05:40 Brief Hx & Hospital Course: Patient is 19 and male with no past medical history transfer to [facility] from [facility] for worsening respiratory distress. For past 5-7 days, patient had worsening shortness of breath, prompted visit in 1 month back hospital. 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 Patient did underwent at [facility] CT angio which showed questionable noncardiogenic pulmonary edema, questionable pneumonia, or ARDS. No PE. Past medical history: None Past surgical history none Allergies none Personal history: As per EMR/nursing report, patient has been smoking 10-12 cigarettes per day, intermittent vaping use. No any other recreational drugs use. Home medication: None Hospital course: On arrival to hospital given acute respiratory distress patient was intubated on 03/11/2025. Given recent vaping and smoking for past 8-10 days, patient started having GCS worsening shortness of breath, at [facility] monitor obesity scan was done which ruled out pulmonary embolism, showed noncardiogenic pulmonary edema with questionable pneumonia/ARDS. Patient was started on empirical antibiotic with Zosyn, vancomycin and azithromycin, ipratropium bromide/levalbuterol and panculture was done. Over the course of hospitalization, pulmonary interstitial edema improved, with Lasix also pulmonary interstitial edema improved, however progressively started worsening, requiring IV steroid methylprednisolone 40 mg q.6, underwent bilateral thoracentesis. With continuing IV antibiotics, steroid, Lasix patient's oxygen requirement, pressure support mechanical ventilation was minimal, extubated on 03/19/2025. After extubation, patient passed a swallow test started eating, saturating well on room air. However patient continued to be agitated, anxious, tele psych was done which recommended 5150 hold given suicidal ideation and harm to surrounding people as well. Given patient is hemodynamically stable, medically stable patient will be transferred to higher level of care for further psychiatric evaluation. critical care time spent was 46 mins Consults/Reason for consult Condition at Discharge: Higher Level of Care Final Diagnosis/Problems List Acute metabolic encephalopathy Acute hypoxemic respiratory failure Bilateral pneumonia Gram-positive was negative ? EVALI(E-cigarette or Vaping Use-Associated Lung Injury) ARDS Non cardiogenic Pulmonary edema Bilateral pleural effusion septic shock due to bilateral pneumonia Sinus tachycardia NSTEMI type 2 due to septic shock [id number] due to VMN: Improved Metabolic acidosis due to lactic acidosis: Improved Hypernatremia Discharge Disposition: Psychiatric Facility Discharge Instruct/Medications Diet: Regular Activity: No Restrictions, As Tolerated Follow Up/Referral: trasnfer to higher level of care Medications: see transfer paper No Active Prescriptions or Reported Meds Discharge Statement: "Patient was advised to return to the ER or call 911 if any headaches, dizziness, shortness of breath, chest pain, abdominal pain, bleeding, fevers, or worsening of medical condition. Patient was counseled about treatment plan, medications, possible side effects, patientverbalized understanding. All questions were answered to the best of my ability. This discharge took greater then 30 minutes in planning, reviewing documentation, counseling the patient, and discussing with other team members." ASSESSMENT ASSESSMENT Assessment pneumonia ards suidal ideation Date of Service: Mar 21, 2025 Billing Provider: BRENT ONTIVEROS MD Common Visit Codes: [id number] CARE 30-74 MIN MALIA MCKEON RESIDENT Mar 21, 2025 15:38 BRENT ONTIVEROS MD Mar 22, 2025 12:23
[2025-03-21] MEDS: SODIUM CHLOR 0.9% PF (SALINE LOCK) 10ML VIAL/SYR IV SCH (16:06)
--- NOTE | 2025-03-21 22:19 | DVHINCON2 ---
Date of service: Mar 21, [address] Ames Reason for Consultation Psychosis History of Present Illness Mr. Sims is a 19 years old right-handed gentleman with a history of antisocial personality, happy to smoking, he is transferred from [facility] to [facility] on 03/11/2025 with a chief company of shortness breath. Because of worsening respiratory failure, the patient was intubated the same day when he has researched [facility], and with appropriate treatment, the patient has had improvement, and extubated. At this time, he is alert, oriented to person, place, and time, but is a poor historian On the floor, the patient is found to have psychosis, he is easily agitated, and time not cooperative, accordingly psychiatrist, the patient also had visual hallucination, suicidal/homicidal ideation, he is on 5051 holding He is released he had psychologic problems previously UDS, 03/11/2025: Negative Urinalysis, 03/11/2025: WBC: 1, urine leukocyte esterase: Negative ABG, 02/2625: Hypoxia, acidosis, 02/2725: Respiratory acidosis, 03/13/25: Compensated respiratory acidosis, 03/15/2025:, CO2 retention, hypoxia WBC/HB/PLT/MCV, 03/11/2025: 32.4/18.2/430/82.1, 03/20/2025: 17.6/13.7/537/81.2, 03/21/2025: 24.9/14.8/498/80.3 Lactic acid, 03/11/2025: 4.2, 2.5, 2.1 BUN/CR, 03/20/2025: 27/1.39, 03/21/2025: 25/1.15 Liver function tests, 03/12/25: Unremarkable Chest x-ray, 03/11/2025: 1. Diffuse patchy bilateral pulmonary airspace disease, most notably within the right upper lung zone and bibasilar regions. 2. Increased prominence of the interstitium and pulmonary vasculature. Chest x-ray, 03/11/2025: 1. Endotracheal tube terminates 3.7 cm above the galen. 2. Increased bilateral consolidation compared to prior study. Chest x-ray, 03/14/2025: 1. Support tubes in appropriate position. 2. Bilateral pleural effusions and hazy bilateral pulmonary opacities are similar to the prior study. Chest x-ray, 03/18/2025: 1. Endotracheal tube 7.6 cm above the galen. 2. Right internal jugular catheter in place in the right atrium unchanged 3. Enteric tube below the left diaphragm in the stomach unchanged from earlier study 4. Cardi opulmonary findings are stable and unchanged from 03/18/2025 at 3:[address] chest, 03/16/25: [id number] bilateral pleural effusions with severe passive atelectatic changes throughout both lower lobes, nearly completely collapsed. Mixed interstitial and ground-glass opacity throughout both lungs most commonly related to fluid overload. Past Medical History Antisocial personality Past Surgical History circumcision Family History: Cardiovascular disease G8 MOTHER Family History Hypertension, heart disease, tobacco smoking Social History He smokes, but no history of drug or alcohol abuse Allergies: Coded Allergies: No Known Drug Allergy (Verified Allergy, Unknown, 03/11/25) Home Meds No Active Prescriptions or Reported Meds Current Medications Current Medications Medications (Trade) Dose Ordered Sig/Perez Route PRN Reason Start Time Stop Time Status Last Admin Methylprednisolone Sodium Succinate (Solu Medrol) 40 mg DAILY IV 03/21/25 10:00 03/21/25 08:39 DC Olanzapine (ZyPREXA Tablet) 5 mg DAILY PO 03/21/25 10:00 03/21/25 08:39 DC Acetaminophen (Tylenol Tablet) 650 mg Q6HP PRN PO PAIN SCALE 1-3 OR TEMP>100.4 03/20/25 23:45 03/21/25 08:39 DC Sodium Chloride 1,000 ml @ 75 mls/hr [id number] IV 03/20/25 23:45 03/21/25 00:04 Piperacillin Sod/ Tazobactam Sod 100 ml @ 25 mls/hr Q8H IV 03/20/25 23:45 03/21/25 16:54 Sodium Chloride (Saline Lock Ns) 10 ml Q8HR IV 03/21/25 14:00 03/21/25 16:06 Enoxaparin Sodium (Lovenox) 40 mg DAILY SC 03/21/25 10:00 03/21/25 12:53 DC 03/21/25 09:52 Pantoprazole Sodium (Protonix) 40 mg DAILY IV 03/21/25 10:00 03/21/25 09:52 Ipratropium [place] (Atrovent Medneb) 0.5 mg Q6HR NEB 03/21/25 12:00 03/21/25 17:51 Lactulose 30 ml DAILY PO 03/21/25 10:00 03/21/25 09:53 Nicotine (Nicoderm 21MG/ 24HR) 1 patch DAILY TD 03/21/25 10:00 03/21/25 12:53 DC 03/21/25 09:53 Methylprednisolone Sodium Succinate (Solu Medrol) 40 mg DAILY IV 03/21/25 10:00 03/21/25 12:28 DC 03/21/25 09:52 Olanzapine (ZyPREXA Tablet) 5 mg DAILY PO 03/21/25 10:00 03/21/25 09:53 Acetaminophen (Tylenol Tablet) 650 mg Q6HP PRN PO PAIN SCALE 1-3 OR TEMP>100.4 03/21/25 08:45 Review of Systems As above, the other systems are negative Vital Signs Vital Signs Date Time Temp Pulse Resp B/P (MAP) Pulse Ox O2 Delivery O2 Flow Rate FiO2 03/21/25 17:51 98 Room Air 03/21/25 17:51 81 18 03/21/25 17:51 0 21 21 03/21/25 16:48 98.3 129/78 (95) 98.3 Physical Exam GENERAL EXAM: General: the patient is well developed and nourished. No acute distress. HEENT: Normocephalic, neck is supple, no carotid bruits. No mass. RESPIRATORY: Normal respiratory effort with symmetrical lung expansion. Lungs clear to auscultation. CARDIOVASCULAR: Regular rate and rhythm with no murmurs. S1, S2. ABDOMEN: Soft, nontender, normal bowel sound NEUROLOGICAL: MENTAL STATUS: Awake and alert. Oriented to person, place, time, SPEECH, LANGUAGE, HIGHER CORTICAL FUNCTION: no aphasia or dysathria. CRANIAL NERVES: #2: Intact visual silva to confrontation. The optic discs were sharp.. #3,4,6: Pupils are equal, round and reactive. EOMs full and conjugate. Mild bilateral gaze evoked nystagmus. #5: Facial sensation intact in all three divisions bilaterally. Mandibular strength intact. #7: Facial muscles symmetrical and strength intact. #8: Hearing grossly normal to voice. #9,10: Uvula and soft palate rise in the midline. Swallow and voice are normal. #11: Trapezius and sternomastoid strength intact bilaterally. #12: Tongue midline. No fasciculations or atrophy. SENSATION: Sensation to touch and pinprick is normal. MOTOR: Normal tone in the upper and lower extremity. Normal muscle bulk. No fasciculations. No abnormal movements or posturing. Muscle strength of the major groups in the upper extremities is 5/5. Muscle strength of the major groups in the lower extremities is 5/5. REFLEXES: Deep tendon reflexes are symmetrical. No pathological reflexes. CEREBELLAR/COORDINATION: Finger to nose is normal bilaterally. GAIT/STATION: deferred. Labs/Diagnostic Data Labs Test 03/21/25 05:40 03/20/25 09:04 03/20/25 00:40 03/20/25 00:26 Range/Units White Blood Count 24.9 #H 4.4-10.8 10^3/uL Red Blood Count 5.33 4.5-5.90 10^6/uL Hemoglobin 14.8 13.5-17.5 g/dL Hematocrit 42.7 41.0-53.0 % Mean Corpuscular Volume 80.3 80.0-100.0 fL Mean Corpuscular Hemoglobin 27.8 L 28.0-32.0 pg Mean Corpuscular Hemoglobin Concent 34.6 32.0-36.0 g/dL Red Cell Distribution Width 13.6 11.8-14.3 % Platelet Count 498 H 140-450 10^3/uL Mean Platelet Volume 6.9 6.9-10.8 fL Neutrophils (%) (Auto) 37.0-80.0 % Lymphocytes (%) (Auto) 10.0-50.0 % Monocytes (%) (Auto) 0.0-12.0 % Basophils (%) (Auto) 0.0-2.0 % Neutrophils # (Auto) 1.6-8.6 10 ^3/uL Lymphocytes # (Auto) 0.4-5.4 10 ^3/uL Monocytes # (Auto) 0-1.3 10 ^3/uL Differential Total Cells Counted 100.0 100 Neutrophils % (Manual) 73 37.0-80.0 Band Neutrophils % (Manual) 0 Lymphocytes % (Manual) 5 L 10.0-50.0 Monocytes % (Manual) 4 0-12 Eosinophils % (Manual) 18 H 0-7 Basophils % (Manual) 0 0.0-2.0 Metamyelocytes % (manual) 0 Myelocytes % (Manual) 0 Promyelocytes % (Manual) 0 Blast Cells % (Manual) 0 Reactive Lymphocytes 0 Platelet Estimate Increased Sodium Level 139 136-145 mmol/L Potassium Level 3.4 L 3.5-5.1 mmol/L Chloride Level 106 # 98-107 mmol/L Carbon Dioxide Level 21 20-31 mmol/L Anion Gap 12 5-15 Blood Urea Nitrogen 25 H 9-23 mg/dL Creatinine 1.15 0.700-1.30 mg/dL Glomerular Filtration Rate Calc 93 >90 mL/min BUN/Creatinine Ratio 21.7 H 10.0-20.0 Serum Glucose 94 # 74-106 mg/dL Calcium Level 9.3 8.7-10.4 mg/dL Free Thyroxine (T4) Calculated 1.59 0.89-1.76 ng/dL Ammonia < 10 L 11-32 umol/L Thyroid Stimulating Hormone (TSH) 4.91 H 0.55-4.78 uIU/mL Blood Gas Specimen Type Arterial Blood Gas Sample Site Right radial Blood Gas Patient Temperature 37.0 Arterial Blood Date Drawn Arterial Blood pH 7.565 *H 7.350-7.450 Arterial Blood Partial Pressure CO2 27.6 L 35.0-48.0 mmHg Arterial Blood Partial Pressure O2 66.2 L 83.0-108.0 mmHg Arterial Blood HCO3 24.4 21.0-28.0 mmol/L Arterial Blood Oxygen Saturation 94.1 94.0-98.0 % Arterial Blood Base Excess 3.6 H -2.0-3.0 mmol/L Arterial Blood Oxyhemoglobin 92.4 L 94.0-98.0 % Arterial Blood Carboxyhemoglobin 1.4 0.5-1.5 % Arterial Blood Methemoglobin 0.4 0.0-1.5 % Javier Test Modified Blood Gas Total Hemoglobin 15.80 13.5-17.5 g/dL Blood Gas Modality Room air FiO2 % 21.0 Blood Gas Critical Value Read Back Yes Blood Gas Notified Whom Md. beckie che Blood Gas Notified Time [id number] Blood Gas Notified By Rt, don delarosa Test 03/19/25 07:50 03/19/25 05:58 03/19/25 04:38 03/18/25 12:00 Range/Units Blood Gas Spontaneous Rate 20 Blood Gas Pressure Support 7 Blood Gas PEEP or CPAP 5.0 Blood Gas Set Respiration Rate 16.0 Blood Gas Tidal Volume 500.0 Stomatocytes Few Magnesium Level 2.2 1.6-2.6 mg/dL Total Bilirubin 0.3 0.2-1.0 mg/dL Aspartate Amino Transferase (AST) 37 13-40 U/L Alanine Aminotransferase (ALT) 64 H 7-40 U/L Alkaline Phosphatase 66 46-116 U/L Total Protein 7.0 5.7-8.2 g/dL Albumin 4.2 3.2-4.8 g/dL Body Fluid Source Pleural fluid Body Fluid pH 8.0 Body Fluid WBC (Manual) 493 H 0-200 CUMM Body Fluid RBC (Manual) 201 0-2000 CUMM Body Fluid Mononuclear Cells 63 % Body Fluid Polymorphonuclear Cells 37 H 0-25 % Body Fluid Glucose 103 . mg/dL Body Fluid Total Protein 3.2 . g/dL Body Fluid Lactate Dehydrogenase 195 . IU/L Test 03/18/25 06:15 03/15/25 03:00 03/14/25 23:45 03/14/25 00:45 Range/Units POC Glucose 115 H 70-106 mg/dl Eosinophils (%) (Auto) 5.3 0.0-7.0 % Eosinophils # (Auto) 0.6 0-0.8 10 ^3/uL Basophils # (Auto) 0 0-0.2 10 ^3/uL Nucleated Red Blood Cells 0.0 % Random Vancomycin Level 13.3 H 5-10 ug/mL Urine Color Light-yellow Yellow Urine Clarity Turbid H Clear Urine pH 5.0 5.0-9.0 Urine Specific [place] 1.022 1.001-1.035 Urine Protein Trace H Negative Urine Ketones Negative Negative Urine Blood 2+ H Negative /uL Urine Nitrite Negative Negative Urine Bilirubin Negative Negative Urine Urobilinogen Normal Negative mg/dL Urine Leukocyte Esterase Negative Negative /uL Urine RBC 202 0 - 3 /hpf Urine Microscopic WBC 4 H 0-3 /HPF Urine Squamous Epithelial Cells None seen <5 /hpf Urine Uric Acid Crystals Mod None Seen /hpf Urine Bacteria None seen None Seen /hpf Urine Creatinine 105.48 30.0-125.0 mg/dL Urine Protein/Creatinine Ratio 0.41 Urine Sodium 15 L 40-220 mmol/L Urine Glucose Normal Normal mg/dL Urine Total Protein 43.7 H 1-14 mg/dL Vancomycin Level Trough 19.0 H 5-10 ug/mL Test 03/12/25 03:00 03/11/25 11:24 03/11/25 08:40 03/11/25 03:25 Range/Units Lactic Acid Level 1.6 0.4-2.0 mmol/L Influenza Type A Antigen Negative Negative Influenza Type B Antigen Negative Negative SARS-CoV-2 Antigen (Rapid) Negative NEGATIVE Urine Hyaline Casts Few 0 - 2 /lpf Urine Mucus Few None Seen Urine Opiates Screen Neg NEGATIVE Urine Fentanyl Screen Neg NEGATIVE Urine Barbiturates Screen Neg NEGATIVE Urine Phencyclidine Screen Neg NEGATIVE Urine Amphetamines Screen Neg NEGATIVE Urine Benzodiazepines Screen Neg NEGATIVE Urine Cocaine Screen Neg NEGATIVE Urine Cannabinoids Screen Neg NEGATIVE Troponin I High Sensitivity 36 </=54 ng/L Test 03/11/25 02:24 03/11/25 00:43 03/11/25 00:42 Range/Units Blood Gas Spontaneous Tidal Volume 675 Blood Gas EPAP 5 Blood Gas IPAP 12 Bl Gas Inspiratory/Expiratory Ratio 1:3 Large Platelets Few Hemoglobin A1c 5.0 <5.7 % A1C B-Type Natriuretic Peptide 51.93 0-100 pg/mL Microbiology Date/Time Source Procedure Growth Status 03/18/25 12:00 Pleural Fluid Gram Stain - Final Resulted 03/18/25 12:00 Pleural Fluid Body Fluid Culture - Preliminary Resulted 03/17/25 11:11 Lung Pending Resulted 03/17/25 11:11 Lung Pending Resulted 03/17/25 11:11 Lung Pending Resulted 03/17/25 11:11 Lung Pending Resulted 03/17/25 11:11 Lung - Final See Separate Report... Resulted 03/17/25 11:11 Bronchial Washings Gram Stain - Final Complete 03/17/25 11:11 Bronchial Washings Respiratory Culture - Final Complete 03/11/25 08:40 Urine - [place] Urine Culture - Final Complete 03/11/25 02:41 Blood Blood Culture - Final NO GROWTH AFTER 5 DAYS OF INCUBATION. Complete Assessment Psychosis with clear sensorium, the patient has a psychiatric disorder Plan/Recommendation Monitoring Supportive treatment 1/1 sitter 5150 hold Transferred to psychiatric floor Olanzapine More recommendation per clinical course Progress: Poor This medical document was created using an electronic medical record system with [employer] computerized dictation system. Although this document has been carefully reviewed, there may still be some phonetic and typographical errors. These areas are purely typographical due to imperfections of the software programs, and do not reflect any compromise in the patient's medical care. Plan discussed with: Patient, Other NORIS GUERRERO MD Mar 21, 2025 22:19
[2025-03-22 01:00] VITALS: BP 136/93; PULSE 73; RESP 17; TEMP 99.5; O2SAT 100
[2025-03-22 05:00] VITALS: BP 155/88; PULSE 86; RESP 17; TEMP 99.3; O2SAT 96
[2025-03-22] MEDS: OLANZapine 5 MG TAB PO SCH (11:07)
[2025-03-22] MEDS ORDERED: LORazepam 0.5 MG TAB PO PRN (14:00)
--- NOTE | 2025-03-22 17:17 | DVHPNRES ---
Progress Note Date Seen: Mar 22, 2025 Resident Creating Document: MALIA MCKEON RESIDENT Medical Necessity Reason Pt with a Central, PICC or Fol: No Subjective Review of Systems Patient is 19 and male with no past medical history transfer to [facility] from [facility] for worsening respiratory distress. For past 5-7 days, patient had worsening shortness of breath, prompted visit in 1 month back hospital. Is when patient was transferred to emergency department in [facility], the patient was started on BiPAP, compensation/benefits specialist on 03/11/2025, the patient started breathing 30s to 40s, for respiratory distress, patient was intubated brought in for supportive mechanical ventilation. Patient did underwent at [facility] CT angio which showed questionable noncardiogenic pulmonary edema, questionable pneumonia, or ARDS. No PE. Past medical history: None Past surgical history none Allergies none Personal history: As per EMR/nursing report, patient has been smoking 10-12 cigarettes per day, intermittent vaping use. No any other recreational drugs use. Home medication: None 03/11/2025: Patient seen in [facility]. Intubated and sedated. Initially patient was in respiratory distress intubated at 8:00 a.m. on 03/11/2025. Urine output 2500 mL last bowel hours. Elevated temperature. No other complaint. 03/12/2025: Patient seen in [facility]. On ventilator. FIow 35%. Off Vasopressors. [id number]. no new complains 03/13/2025:Patient seen in [facility]. On ventilator. FIow 35%. Off Vasopressors. [id number]. no new complains 03/14/2025:Patient seen in [facility]. On ventilator. FIow 35%. Off Vasopressors. [id number]. no new complains. Started on steroids. DC lasix. Monitor kidney function. 03/15/2025: Patient seen in [facility]. On ventilator. Charla 35%. Tmax 99.5. On steroids. NO other complains. 03/16/2025: Patient seen in [facility]. On ventilator. Charla 35%. Tmax 99.5. On steroids. NO other complains. plan for CT chest. NO Bowel movement since 5 days.. 03/17/2025: Patient is continued to be on ventilator, FiO2 35%. Underwent right thoracentesis, drained 600 mL fluids. Underwent bronchoscopy as well. No fever. No bowel movement till now. 03/19/2025: Patient is extubated today. On room air. Plan for swallow test. No any other new complaint. 03/20/2025: patient is more alert still more agitated . on room air, tolerating diet. 03/22/2025: Patient seen at bedside. Patient continued to psychosis, stating he wants to harm and kill everyone and admitting himself that he has antisocial personality disorder. Objective vital signs Vital Sign Date Time Temp Pulse Resp B/P (MAP) Pulse Ox O2 Delivery O2 Flow Rate FiO2 03/22/25 08:05 Room Air* 0 21 03/22/25 05:00 99.3 86 17 155/88 (110) 96 99.3 Total Intake and Output 03/21/25 03/21/25 03/22/25 15:00 23:00 07:00 Intake Total 460 ml 1960 ml 500 ml Output Total 850 ml 425 ml Balance 460 ml 1110 ml 75 ml medications Current Medications Medications Dose Ordered Sig/Perez Route Start Time Stop Time Status Last Admin Dose Admin Ipratropium [place] 0.5 mg Q6HR NEB 03/21/25 12:00 03/22/25 00:37 0.5 MG Acetaminophen 650 mg Q6HP PRN PO 03/21/25 08:45 Olanzapine 5 mg BID PO 03/22/25 10:00 03/22/25 11:07 5 MG Lorazepam 1 mg ONCE PRN PO 03/22/25 14:00 Examination General: Patient alert but inattentive behavior and talkative and aggressive.. Patient does not follow commands, HEENT: Normocephalic, atraumatic, moist mucous membranes Respiratory/pulmonary: Clear lungs bilaterally, vesicular murmurs present in almost all lung silva, no associated crackles or wheezes. Cardiovascular: Normal heart sounds S1 and S2 with no associated murmurs Abdomen: Abdomen nondistended, there is no pain to palpation in any of the abdominal quadrants, no palpable masses. Extremities: There is no peripheral edema present at the lower extremities. Peripheral Pulses: 3+ Radial (R). 3+ Radial (L). 3+ Dorsalis pedis (R). 3+ Dorsalis pedis(L) Skin: No rashes or pruritus, there is no sacral edema present at this time. Neurological: Intact cranial nerves with no focal neurologic deficits laboratory and microbiology Laboratory Tests 03/21/25 05:40 Test 03/21/25 05:40 Range/Units Serum Glucose 94 # 74-106 mg/dL Microbiology Date/Time Source Procedure Growth Status 03/18/25 12:00 Pleural Fluid Gram Stain - Final Resulted 03/18/25 12:00 Pleural Fluid Body Fluid Culture - Preliminary Resulted 03/17/25 11:11 Lung Pending Resulted 03/17/25 11:11 Lung Pending Resulted 03/17/25 11:11 Lung Pending Resulted 03/17/25 11:11 Lung Pending Resulted 03/17/25 11:11 Lung - Final See Separate Report... Resulted 03/17/25 11:11 Bronchial Washings Gram Stain - Final Complete 03/17/25 11:11 Bronchial Washings Respiratory Culture - Final Complete 03/11/25 08:40 Urine - [place] Urine Culture - Final Complete 03/11/25 02:41 Blood Blood Culture - Final NO GROWTH AFTER 5 DAYS OF INCUBATION. Complete Problem List/Assessment/Plan Problem List/Assessment/Plan Neurology Acute metabolic encephalopathy -Stable Respiratory Acute hypoxemic respiratory failure Bilateral pneumonia Gram-positive was negative ? EVALI(E-cigarette or Vaping Use-Associated Lung Injury) ARDS Non cardiogenic Pulmonary edema -IV methyprednisone discontinue -IV antibiotic with Zosyn -ipratropium bromide -lezama culture: Respiratory, blood culture.:negative till now -Mrsa negative -CT chest(03/17/2025) :[id number] bilateral pleural effusions with severe passive atelectatic changes throughout both lower lobes, nearly completely collapsed.Mixed interstitial and ground-glass opacity throughout both lungs most commonly related to fluid overload. Bilateral pleural effusion -S/P Bilateral thoracentesis(03/17 and 03/18) -S/P broncoscopy (03/17/2025) Cardiology Septic shock due to bilateral pneumonia Sinus tachycardia NSTEMI type 2 due to septic shock -continue management of pneumonia with zosyn -Off pressors target map greater than 65 -lezama culture: Respiratory, blood culture.:negative till now -ECHO:lvef 50%,possible LVH noted,cannot rule out WMA,rv enlarged,normal atria,no severe valve abnormality noted Nephrologic/acid-base balance RAJENDRA due to VMN: Improved -NS 75ml /hr -Cretinine:0.84, 1.39, 2.00 -GFR 127, 74. -Avoid nephrotoxic medications -Continue monitor kidney functions. Metabolic acidosis due to lactic acidosis: Improved -lactic acid 4.2, 2.5, 2.1,1.2 -continue current management, keep nasal diuresis. -continue to monitor kidney function Hypernatremia -improved Psychology -acute psychosis -? Antisocial personality disorder -suicidal ideation -telepsych was done -5150 hold -olanzapine 5 mg p.o. b.i.d. -transfer to higher level of care for inpatient psych evaluation -patient has been discharge, pending transfer. Current smoker cigarette smoking Current vape user PUD prophylaxis Protonix DVT prophylaxis Lovenox Extubated on 03/19/2025. Intubated on 03/11/2025 Right IJ central line on 03/11/2025, remove line today. Feeding: regular diet Given acute psychosis, suicidal ideation, harm to other, based on telepsych evaluation patient will be transferred to higher level of care for inpatient psych evaluation. Meanwhile we will continue with olanzapine 5 mg p.o. b.i.d., PRN haloperidol if needed. Current clinical condition was discussed with mother at bedside, agrees with current management and agreed with transfer to higher level of care. Goals of care discussed with father via phone, full code status on 03/11/2025. Discussed greater than 24 hours. Critical care time spent 54 min, excluding procedure. Discussed plan with family at bed side and explain current clinical condition. Plan discussed with Dr Linares. Plan discussed with: Other (Mother and RN) My Orders My Orders Orders - MALIA MCKEON RESIDENT Procedure Category Date Status Time Olanzapine Tablet PHA 03/22/25 In Process (Zyprexa Tablet) 10:00 Lorazepam Tablet PHA 03/22/25 In Process (Ativan Tablet) 14:00 Haloperidol Lactate PHA 03/22/25 Verified Injection (Haldol) 17:15 Dietary Evaluation Review Comments: 1) Consider changing TF regimen from Jevity 1.2 @ 30 mL/hr to Vital AF 1.2 @ 60 mL/hr goal rate as tolerated. TF regimen will provide 1728 kcals, 108g Pro, and 1168 mL free H2O per 24 hrs. Goal rate will meet ~ 98% estimated energy needs and ~ 86% estimated protein needs 2) Advance to regular diet when medically feasible, pending ST approval 3) Follow-up with cardiology and pulmonology 4) Continue to monitor I&O, labs, and skin integrity Expected Outcomes/Goals: 1) TF regimen to meet at least 75% estimated daily needs 2) labs to improve 3) diet to advance 4) f/u in 2-3 days MALIA MCKEON RESIDENT Mar 22, 2025 17:17
[2025-03-22] MEDS: HALOPERIDOL LACTATE 5 MG/ML INJ VIAL IM ONE (20:32)
[2025-03-22 21:00] VITALS: BP 135/82; PULSE 106; RESP 26; TEMP 98.9; O2SAT 96
== END 2025-03-22 20:52 | DRG 870 ==
LOC: ER 00:25 → OVERFLOW 01:14 → ICU CENTRL 08:37 → UNDODISIN 03-20 14:58 → TELE-EAST 03-20 23:30 → EAST 03-22 11:04
PROVIDERS: ADMIT Internal Medicine; ATTEND Internal Medicine
PROC: 5A1955Z Respiratory Ventilation, Greater than 96 Consecutive Hours (ICD-10-PCS; principal; 2025-03-11)
PROC: 0BH17EZ Insertion of Endotracheal Airway into Trachea, Via Natural or Artificial Opening (ICD-10-PCS; 2025-03-11)
PROC: 02HV33Z Insertion of Infusion Device into Superior Vena Cava, Percutaneous Approach (ICD-10-PCS; 2025-03-11)
PROC: B548ZZA Ultrasonography of Superior Vena Cava, Guidance (ICD-10-PCS; 2025-03-11)
PROC: 0B9D8ZX Drainage of Right Middle Lung Lobe, Via Natural or Artificial Opening Endoscopic, Diagnostic (ICD-10-PCS; 2025-03-17)
PROC: 0W993ZZ Drainage of Right Pleural Cavity, Percutaneous Approach (ICD-10-PCS; 2025-03-17)
DX: A41.59 Other Gram-negative sepsis (principal); G93.41 Metabolic encephalopathy; R65.21 Severe sepsis with septic shock; J15.69 Pneumonia due to other Gram-negative bacteria; N17.0 Acute kidney failure with tubular necrosis; I21.A1 Myocardial infarction type 2; J80 Acute respiratory distress syndrome; J15.9 Unspecified bacterial pneumonia; J90 Pleural effusion, not elsewhere classified; F29 Unspecified psychosis not due to a substance or known physiological condition; E87.29 Other acidosis; E87.1 Hypo-osmolality and hyponatremia; E87.0 Hyperosmolality and hypernatremia; D45 Polycythemia vera; U07.0 Vaping-related disorder; Z20.822 Contact with and (suspected) exposure to COVID-19; E87.5 Hyperkalemia; F17.210 Nicotine dependence, cigarettes, uncomplicated; E87.70 Fluid overload, unspecified; Z79.899 Other long term (current) drug therapy; Z82.49 Family history of ischemic heart disease and other diseases of the circulatory system
CPT/HCPCS: 32555; 36415; 36600; 71045; 71250; 76604; 80048; 80053; 80202; 80307; 81001; 82140; 82570; 82805; 82962; 83036; 83605; 83735; 83880; 83986; 84132; 84156; 84300; 84439; 84443; 84484; 85007; 85025; 85027; 87040; 87070; 87071; 87081; 87086; 87205; 87426; 87804; 89051; 93005; 93306; 94002; 94003; 94640; 94644; 94660; 96374; G0378; J1100; J1815; J2470; J2543; J2704; J3480